=== PATIENT | female | born 1980 | race Caucasian/White ===

== ENCOUNTER 2021-05-08 08:55 | Outpatient (CLI) | payer BC, MEDICAID, SELFPAY ==
--- NOTE | ~2021-05-08 | MR_ITS ---
EXAMINATION: MR brain/brain stem wo/w con DATE: 05/08/2021 09:58 INDICATION: Neoplasm of unspecified behavior of brain. TECHNIQUE: Magnetic resonance imaging (MRI) of the brain and brainstem was performed without and with 14 mL MultiHance intravenous contrast. Sequences included sagittal and axial T1-weighted FSE, axial diffusion-weighted FS EPI, axial T2*-weighted GRE, axial T2-weighted FLAIR Propeller, and axial T2-we ighted Propeller. Postcontrast sequences included axial, sagittal, and coronal T1-weighted FSE. Appar ent diffusion coefficient (ADC) maps were created. COMPARISON: Brain MRI 11/19/2016, 08/19/03, and CT 06/18/2018 FINDINGS: There is a 9 x 7 mm lesion of increased T2-weighted signal intensity without contrast enhan cement in right hippocampus. There is no acute ischemic infarct or intracranial hemorrhage. The ventr icles are normal in size. The paranasal sinuses are clear. The mastoid air cells are normal. The orbi ts are normal. IMPRESSION: 1. 9 x 7 mm lesion of increased T2-weighted signal intensity without contrast enhancement in right hi ppocampus. The differential diagnosis includes low-grade neoplasm and old infarct. Reviewed, dictated and finalized at location A. B [employer] IMPRESSION: 1. 9 x 7 mm lesion of increased T2-weighted signal intensity without contrast e nhancement in right hippocampus. The differential diagnosis includes low-grade neoplasm and old infarct.
[2021-05-08 09:30] LABS: Estimated Glomerular Filt Rate > 60
== END 2021-05-08 08:56 | disposition home or self-care (01) ==
LOC: ANHIMG 09:00
PROVIDERS: PCP Family Medicine; Visit Provider Psychiatry & Neurology Neurology
DX: D49.6 Neoplasm of unspecified behavior of brain (principal)
CPT/HCPCS: 70553; A9577

== ENCOUNTER 2022-07-01 13:25 | Emergency (ER) | payer OTHER, SELFPAY ==
--- NOTE | 2022-07-01 13:29 | ED.FEMALEGU ---
HPI - Female Genitourinary General Chief complaint: Urogenital-Female Stated complaint: uti symptoms Time Seen by Provider: 07/01/22 13:28 Source: patient Mode of arrival: ambulatory Limitations: no limitations History of Present Illness HPI Narrative: Macy is a 41-year-old female patient presenting to the clinic today with complaints of urinary symptoms since Tuesday. She reports she is having burning with urination and pain over the bladder as well as some left sided flank plain. She has taken azo over the last 2 days which helped alleviate her symptoms. States history of urosepsis. 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 States she has not had a UTI in several years. She denies any fever or chills. Related Data Home Medications Medication Instructions Recorded Confirmed lacosamide 100 mg tablet (Vimpat) 100 mg PO Q12H 08/26/21 07/01/22 trazodone 100 mg tablet 100 mg PO QHS PRN Sleep 10/16/21 07/01/22 hydroxychloroquine 200 mg tablet 100 mg PO BID 06/10/22 07/01/22 venlafaxine 75 mg capsule,extended 75 mg PO DAILY 06/10/22 07/01/22 release 24 hr Allergies Allergy/AdvReac Type Severity Reaction Status Date / Time codeine Allergy Unknown Anaphylactic Verified 07/01/22 13:41 Shock Review of Systems Review of Systems: Pertinent positives per HPI. Patient denies any fever, chills, rash, headache, visual changes, dizziness, cough, runny nose, sore throat, shortness of breath, chest pain, palpitations, nausea, vomiting, diarrhea, constipation. PMFSH Past Medical History Medical History Abnormal Pap smear of cervix 1999 ASCUS - NO F/U NEEDED PER PT - cx bx wnl per pt sj Asthma Brain tumor Chlamydia 2007 Colitis Encounter for screening examination for sexually transmitted disease HSV-1 infection HSV-2 infection Screen for STD (sexually transmitted disease) Screening mammogram, encounter for Seizure SVT (supraventricular tachycardia) Vaginal discharge Surgical History Surgical History H/O: hysterectomy 01/08/21 RA TLH History of cholecystectomy History of colonoscopy with polypectomy 06-02-2018 Multiple polyps, repeat in 2021 History of colposcopy with cervical biopsy 1999 normal History of salpingectomy 07/03/20 Family History Family History Father Carcinoma of colon Mother Thyroid cancer Grandparent Diabetes mellitus maternal grandmother Social History Social History Smoking status: Light tobacco smoker Tobacco type: e-cigarettes/vaping Smoking end date: 03/28/16 Alcohol intake: never Substance use: current Substance use type: marijuana Other substance usage details: 3 x week Living arrangements: other Additional living arrangements comments: Occupation/Education: unemployed Gender identity (if verbalized by the patient): Female Sexual Orientation (if Verbalized by the Patient): Straight or Heterosexual Comments At the time of my signature, I reviewed and agree with the nursing past medical, surgical, social, and family history. There is no relevant family history pertinent to the patient complaint. Exam Narrative: General: Well-developed, well nourished, in no apparent distress. Head: Normocephalic, atraumatic. Cardio: Regular rate and rhythm, s1 and s2 normal, no murmur appreciated. Resp: Clear to auscultation bilaterally, no rhonchi, rales, wheezing or rubs. Abdomen: Soft, pliable, nondistended, bowel sounds present in all quadrants,tender to palpation over the lower abdomen and suprapubic bladder, no organomegly, + left CVAT tenderness. Course Course Emergency Course: Portions of this record may have been created with voice recognition software. Level of Care
[2022-07-01 13:34] VITALS: BP 125/71; PULSE 100; RESP 18; TEMP 36.7; O2SAT 98
== END 2022-07-01 13:50 | disposition home or self-care (01) ==
PROVIDERS: Emergency Provider Nurse Practitioner Family
DX: N30.01 Acute cystitis with hematuria (principal); F12.90 Cannabis use, unspecified, uncomplicated; J45.909 Unspecified asthma, uncomplicated
CPT/HCPCS: 81003; 87077; 87086; 87186; 99213; G0463

== ENCOUNTER 2022-08-03 15:17 | Emergency (ER) | payer OTHER, SELFPAY ==
[2022-08-03 15:29] VITALS: BP 126/77; PULSE 109; RESP 16; TEMP 36.4; O2SAT 100
--- NOTE | 2022-08-03 15:30 | ED.FEMALEGU ---
HPI - Female Genitourinary General Chief complaint: Urogenital-Female Stated complaint: uti symptoms Time Seen by Provider: 08/03/22 15:30 Source: patient Mode of arrival: ambulatory Limitations: no limitations History of Present Illness HPI Narrative: patient is a 41-year-old female that presents 4-5 days of urgency and frequency along with constant burning. Patient since sample to [facility] for STI a rule out yesterday and has been using Monistat gel for 2 nights along with Diflucan that started yesterday. Patient is also on doxycycline for the last 2 weeks for treatment of skin infection. Denies any flank pain fever or blood in urine. Patient states she has had decreased water intake and increase in caffeine intake this weekend due to busy schedule. Patient is also smoker. Has history of urethral reflux stopped medication in 2019 and has not seen a urologist since then. MD elicited complaint: dysuria Related Data Home Medications Medication Instructions Recorded Confirmed lacosamide 100 mg tablet (Vimpat) 100 mg PO Q12H 08/26/21 08/03/22 trazodone 100 mg tablet 100 mg PO QHS PRN Sleep 10/16/21 08/03/22 hydroxychloroquine 200 mg tablet 100 mg PO BID 06/10/22 08/03/22 venlafaxine 75 mg capsule,extended 75 mg PO DAILY 06/10/22 08/03/22 release 24 hr beclomethasone dipropionate 80 inhalation 08/03/22 mcg/actuation HFA breath activated aerosol (Qvar RediHaler) clindamycin phosphate 1 % lotion 1 applic topical DAILY 08/03/22 08/03/22 doxycycline monohydrate 100 mg 100 mg PO BID 08/03/22 08/03/22 capsule fremanezumab-vfrm 225 mg/1.5 mL 225 mg subcut WEEKLY 08/03/22 08/03/22 subcutaneous auto-injector (Ajovy) hydroxyzine HCl 25 mg tablet 25 mg PO TID PRN Anxiety 08/03/22 08/03/22 prazosin 1 mg capsule 1 mg PO HS 08/03/22 08/03/22 Allergies Allergy/AdvReac Type Severity Reaction Status Date / Time codeine Allergy Severe Anaphylactic Verified 08/03/22 15:27 Shock Review of Systems Review of Systems: All systems reviewed & are unremarkable except as noted in HPI and below Constitutional: Constitutional: Denies chills, Denies fever(s), Denies headache(s), Denies malaise and Denies weakness Eyes: Eyes: Denies change in vision, Denies eye discharge and Denies irritation ENT: Denies otalgia, Denies headache(s), Denies nasal congestion, Denies nasal discharge, Denies sinus pain and Denies sore throat Cardiovascular: Cardiovascular: Denies chest pain, Denies edema, Denies palpitations and Denies dyspnea Respiratory: Respiratory: Denies cough and Denies dyspnea Gastrointestinal: Gastrointestinal: Denies abdominal pain, Denies diarrhea, Denies nausea and Denies vomiting Genitourinary: Genitourinary: Denies hematuria, Reports post void dribbling, Reports nocturia, Reports genital pruritis, Reports dysuria, Denies flank pain and Reports urinary urgency Musculoskeletal: Musculoskeletal: Denies back pain and Denies numbness Integumentary/Breasts: Skin/Breast: Denies pruritus and Denies rash Neurologic: Denies headache(s), Denies numbness and Denies weakness Psychiatric: Psychiatric: Reports no additional psychiatric complaints Endocrine: Endocrine: Denies palpitations PMFSH Past Medical History Medical History Abnormal Pap smear of cervix 1999 ASCUS - NO F/U NEEDED PER PT - cx bx wnl per pt sj Asthma Brain tumor Chlamydia 2007 Colitis Encounter for screening examination for sexually transmitted disease HSV-1 infection HSV-2 infection Screen for STD (sexually transmitted disease) Screening mammogram, encounter for Seizure SVT (supraventricular tachycardia) Vaginal discharge Surgical History Surgical History H/O: hysterectomy 01/08/21 RA TL History of cholecystectomy History of colonoscopy with polypectomy 06-02-2018 Multiple polyps, repeat in 2021 History of colposcopy w
[2022-08-03 15:32] VITALS: BP 126/77; PULSE 109; RESP 16; TEMP 36.4; O2SAT 100
== END 2022-08-03 15:59 | disposition home or self-care (01) ==
PROVIDERS: Emergency Provider Nurse Practitioner Family; PCP Nurse Practitioner Family
DX: R39.15 Urgency of urination (principal); R35.0 Frequency of micturition; J45.909 Unspecified asthma, uncomplicated
CPT/HCPCS: 81003; 99212; G0463

== ENCOUNTER 2024-02-20 12:39 | Emergency (ER) | payer OTHER, SELFPAY ==
[2024-02-20 12:49] VITALS: BP 95/58; PULSE 106; RESP 16; TEMP 36.3; O2SAT 99
--- NOTE | 2024-02-20 12:55 | ED.FEMALEGU ---
HPI - Female Genitourinary General Chief complaint: Urogenital-Female Stated complaint: possible UTI Source: patient and RN notes reviewed Mode of arrival: ambulatory Limitations: no limitations History of Present Illness HPI Narrative: 43-year-old female presented for complaint of mild burning with urination. Onset yesterday. She also endorses some nausea and suprapubic pressure. Pt completed 5 days of macrobid 3 days ago, as prescribed by her flat examiner for uti. States she felt better while taking it. Pt states she thinks she is dehydated. Denies hematuria, nausea, vomiting, abdominal pain, flank pain, constipation, diarrhea, fevers or chills. Related Data Home Medications ?Medication ?Instructions ?Recorded ?Confirmed ?Last Taken ?Type trazodone 100 mg tablet 100 mg PO QHS PRN Sleep 10/16/21 01/23/24 Unknown History hydroxychloroquine 200 mg tablet 100 mg PO BID 06/10/22 01/23/24 Unknown History beclomethasone dipropionate 80 inhalation 08/03/22 01/23/24 Unknown History mcg/actuation HFA breath activated aerosol (Qvar RediHaler) prazosin 1 mg capsule 1 mg PO HS 08/03/22 01/23/24 Unknown History flluyxwjml-nmatblslxhead-eymiwnbz 1 cap PO Q6H PRN 12/14/22 01/23/24 Unknown History 50 mg-325 mg-40 mg capsule prochlorperazine maleate 5 mg 5 mg PO Q8H PRN 12/14/22 01/23/24 Unknown History tablet atomoxetine 100 mg capsule 100 mg PO DAILY 01/23/24 01/23/24 Unknown History (Strattera) bupropion HCl 300 mg 24 hr tablet, 300 mg PO QAM 01/23/24 01/23/24 Unknown History extended release (Wellbutrin XL) buspirone 10 mg tablet 10 mg PO TID 01/23/24 01/23/24 Unknown History Allergies Allergy/AdvReac Type Severity Reaction Status Date / Time codeine Allergy Severe Anaphylactic Verified 02/20/24 12:51 Shock Review of Systems Review of Systems: CONSTITUTIONAL: Denies body aches, fever, chills, or sweats. CARDIOVASCULAR: Denies chest pain, palpitations, or edema. RESPIRATORY: Denies cough or dyspnea. GASTROINTESTINAL: Denies abdominal pain, nausea, vomiting, or diarrhea. GENITOURINARY: Reports dysuria, denies frequency, urgency, hematuria, flank pain SKIN: Denies rash, itching, or wounds. MUSCULOSKELETAL: Denies back pain or myalgia. [facility] Past Medical History Medical History Suburethral sling present Connective tissue disease Screen for STD (sexually transmitted disease) Vaginal discharge HSV-2 infection HSV-1 infection Screening mammogram, encounter for Encounter for screening examination for sexually transmitted disease Brain tumor Seizure Asthma Colitis SVT (supraventricular tachycardia) Chlamydia 2006 Abnormal Pap smear of cervix 1999 ASCUS - NO F/U NEEDED PER PT - cx bx wnl per pt sj Surgical History Surgical History History of cholecystectomy History of colposcopy with cervical biopsy 1999 normal History of colonoscopy with polypectomy 06-02-2018 Multiple polyps, repeat in 2021 History of salpingectomy 07/03/20 H/O: hysterectomy 01/08/21 [facility] Family History Family History Father Carcinoma of colon Mother Thyroid cancer Grandparent Diabetes mellitus maternal grandmother Social History Social History Smoking status: Light tobacco smoker Tobacco type: e-cigarettes/vaping Smoking end date: 03/28/16 Alcohol intake: never Substance use: current Substance use type: marijuana Other substance usage details: 3 x week Lack of Transportation: No Lack of Food: Never True Current Housing: I Have Housing Concerned About Future Housing: No Difficulty Paying Gas/Electric Bills: No Difficulty Paying for Meds: No Currently Unemployed: No Education: Trade/Vocational Certificate Difficulty w/ Childcare or Family Care: No Living arrangements: other Additional living arrangements comments: Occupation/Education: unemployed Additional occupation/education comments: half-way disability Gender identity (if verbalized by the patient): Female Sexual Orientation (if Verbalized by the Patient): Straight or Heterosexual Comments At time of signature, I have reviewed and agree with nursing past medical, surgical, social and family history unless otherwise noted. Please see nursing chart for further information. There is no relevant family history pertinent to the presenting complaint Exam Narrative: GENERAL: Well-appearing ENT: Mucous membranes pink and moist. NECK: Normal AROM. Supple. CHEST: No respiratory distress. Clear to auscultation. HEART: Regular rate and rhythm. ABDOMEN: Soft, nontender, nondistended, normal active bowel sounds. No CVA tenderness SKIN: Warm, dry, no rash. NEURO: No focal deficits. Alert and oriented x3. Gait steady. PSYCH: Normal affect. Course Course Emergency Course: Patient is aware of diagnosis, understands and agrees to treatment plan. Anticipatory guidance given. Patient agrees to follow-up as directed and is aware of reasons to seek care at the emergency department. Portions of this record may have been created with voice recognition software Level of Care: Express Care Visit Vital Signs Vital signs: Vital Signs Temperature 97.3 F L 02/20/24 12:49 Pulse Rate 106 H 02/20/24 12:49 Respiratory Rate 16 02/20/24 12:49 Blood Pressure 95/58 L 02/20/24 12:49 Pulse Oximetry 99 02/20/24 12:49 Oxygen Delivery Room Air 02/20/24 12:49 Temperature 97.3 F L 02/20/24 12:49 Pulse Rate 106 H 02/20/24 12:49 Respiratory Rate 16 02/20/24 12:49 Blood Pressure 95/58 L 02/20/24 12:49 Pulse Oximetry 99 02/20/24 12:49 Oxygen Delivery Room Air 02/20/24 12:49 Reviewed MDM - Female Genitourinary MDM Narrative Medical decision making narrative: Discussed physical exam findings and urine dip. Since she just completed the macrobid, she will await the culture result for abx if needed. She would like fluconazole at this time. Advised supportive measures and signs/symptoms to go to the ER. Pt is appropriate for outpt treatment and f/u. Differential Diagnosis Differential diagnosis: Likely urinary tract infection, bacterial vaginosis, vaginitis and cystitis Discharge Plan Discharge Clinical Impression: Dysuria Patient Disposition: Home, Self-Care Condition: Stable Instructions: Antibiotic Form, Urinary Tract Infection in Women (ED) Additional Instructions: Your urine will be sent of for a culture to determine if bacteria is causing your symptoms. If the culture shows a UTI, you will be notified and an antibiotic will be called in for you. you will need to follow up with your PCP for further evaluation and treatment if symptoms persist, call today to schedule follow-up appointment. Go to the ER for any worsening symptoms or concerns. Patient Language: Estonian Prescriptions: New fluconazole 150 mg tablet 150 mg PO DAILY Qty: 2 0RF No Action prazosin 1 mg capsule 1 mg PO HS Qvar RediHaler 80 mcg/actuation HFA aerosol breath activated INHALATION bupropion HCl [Wellbutrin XL] 300 mg tablet extended release 24 hr 300 mg PO QAM buspirone 10 mg tablet 10 mg PO TID atomoxetine [Strattera] 100 mg capsule 100 mg PO DAILY trazodone 100 mg tablet 100 mg PO QHS PRN (Reason: Sleep) qenpqbdjac-tqibjuurfwznr-hpci 50-325-40 mg capsule 1 cap PO Q6H PRN prochlorperazine maleate 5 mg tablet 5 mg PO Q8H PRN hydroxychloroquine 200 mg tablet 100 mg PO BID montelukast 10 mg tablet See Rx Instructions .ROUTE .COMPLEX Qty: 90 1RF Dose Instruction: TAKE 1 TABLET BY MOUTH DAILY Rx Instructions: TAKE 1 TABLET BY MOUTH DAILY fluticasone propionate 50 mcg/actuation spray,suspension See Rx Instructions .ROUTE .COMPLEX Qty: 32 0RF Dose Instruction: SHAKE LIQUID AND USE 2 SPRAYS IN EACH NOSTRIL DAILY Rx Instructions: SHAKE LIQUID AND USE 2 SPRAYS IN EACH NOSTRIL DAILY albuterol sulfate 90 mcg/actuation HFA aerosol inhaler See Rx Instructions .ROUTE .COMPLEX Qty: 18 0RF Dose Instruction: INHALE 1 PUFF BY MOUTH EVERY 4 HOURS NEEDED FOR BRONCHOSPASM Rx Instructions: INHALE 1 PUFF BY MOUTH EVERY 4 HOURS NEEDED FOR BRONCHOSPASM Follow-up/Referrals: Kimberly,Eve Mayes, DERMATOLOGY PROCEDURAL PHYSICIAN [Primary Care Provider] -
[2024-02-20 13:03] LABS: EDUAAPPEAR Clear; EDUABILI 1+ (Negative); EDUABLOOD Negative (Negative); EDUACOLOR1 Yellow; EDUAGLUCOSE Negative (Negative); EDUAKETONE Negative (Negative); EDUALEUKO Negative (Negative); EDUANITRATE Negative (Negative); EDUAPH 5.5; EDUAPROTEIN 1+ (Negative); EDUAUROBILI 0.2
== END 2024-02-20 13:05 | disposition home or self-care (01) ==
PROVIDERS: Emergency Provider Nurse Practitioner Family; PCP Nurse Practitioner Family
DX: R30.0 Dysuria (principal); F17.290 Nicotine dependence, other tobacco product, uncomplicated
CPT/HCPCS: 81003; 87086; 99213; G0463

== ENCOUNTER 2024-02-24 17:32 | Emergency (ER) | payer SELFPAY ==
[2024-02-24 17:49] VITALS: BP 106/69; PULSE 111; RESP 18; TEMP 36.4; O2SAT 100
--- NOTE | 2024-02-24 18:38 | ED_ITS ---
HPI - URI/Sore Throat General Chief Complaint: Upper Respiratory Infection Stated Complaint: Flu like Symptoms Time Seen by Provider: 02/24/24 18:38 Source: patient, RN notes reviewed and old records reviewed Mode of arrival: ambulatory Limitations: no limitations History of Present Illness HPI Narrative: 43-year-old female presents to the [facility] with concerns of 4 days of nasal congestion, headache, scratchy throat, cough, sneezing. Reports also spilling feverish. Has taken ibuprofen and Sudafed. Patient is a vapor Reports exposure to strep throat Related Data Home Medications ?Medication ?Instructions ?Recorded ?Confirmed ?Last Taken ?Type trazodone 100 mg tablet 100 mg PO QHS PRN Sleep 10/16/21 01/23/24 Unknown History hydroxychloroquine 200 mg tablet 100 mg PO BID 06/10/22 01/23/24 Unknown History beclomethasone dipropionate 80 inhalation 08/03/22 01/23/24 Unknown History mcg/actuation HFA breath activated aerosol (Qvar RediHaler) prazosin 1 mg capsule 1 mg PO HS 08/03/22 01/23/24 Unknown History pvzvnzdgrv-spdhlshmkowoj-tcdwemjv 1 cap PO Q6H PRN 12/14/22 01/23/24 Unknown History 50 mg-325 mg-40 mg capsule prochlorperazine maleate 5 mg 5 mg PO Q8H PRN 12/14/22 01/23/24 Unknown History tablet atomoxetine 100 mg capsule 100 mg PO DAILY 01/23/24 01/23/24 Unknown History (Strattera) bupropion HCl 300 mg 24 hr tablet, 300 mg PO QAM 01/23/24 01/23/24 Unknown History extended release (Wellbutrin XL) buspirone 10 mg tablet 10 mg PO TID 01/23/24 01/23/24 Unknown History Allergies Allergy/AdvReac Type Severity Reaction Status Date / Time codeine Allergy Severe Anaphylactic Verified 02/24/24 18:30 Shock Review of Systems Review of Systems: All systems reviewed & are unremarkable except as noted in HPI and below Constitutional: Constitutional: Reports no additional constitutional complaints ENT: Reports as per HPI Cardiovascular: Cardiovascular: Reports no additional cardiovascular complaints, Denies chest pain and Denies dyspnea Respiratory: Respiratory: Reports as per HPI, Reports chest congestion, Denies cough and Denies dyspnea Musculoskeletal: Musculoskeletal: Reports no additional musculoskeletal complaints Integumentary/Breasts: Skin/Breast: Reports system reviewed and no additional complaints, except as docu PMFSH Past Medical History Medical History Suburethral sling present Connective tissue disease Screen for STD (sexually transmitted disease) Vaginal discharge HSV-2 infection HSV-1 infection Screening mammogram, encounter for Encounter for screening examination for sexually transmitted disease Brain tumor Seizure Asthma Colitis SVT (supraventricular tachycardia) Chlamydia 2006 Abnormal Pap smear of cervix 1999 ASCUS - NO F/U NEEDED PER PT - cx bx wnl per pt sj Surgical History Surgical History History of cholecystectomy History of colposcopy with cervical biopsy 1999 normal History of colonoscopy with polypectomy 06-02-2018 Multiple polyps, repeat in 2021 History of salpingectomy 07/03/20 H/O: hysterectomy 01/08/21 RA TL Family History Family History Father Carcinoma of colon Mother Thyroid cancer Grandparent Diabetes mellitus maternal grandmother Social History Social History Smoking status: Light tobacco smoker Tobacco type: e-cigarettes/vaping Smoking end date: 03/28/16 Alcohol intake: never Substance use: current Substance use type: marijuana Other substance usage details: 3 x week Lack of Transportation: No Lack of Food: Never True Current Housing: I Have Housing Concerned About Future Housing: No Difficulty Paying Gas/Electric Bills: No Difficulty Paying for Meds: No Currently Unemployed: No Education: Trade/Vocational Certificate Difficulty w/ Childcare or Family Care: No Living arrangements: other Additional living arrangements comments: Occupation/Education: unemployed Additional occupation/education comments: [employer] disability Gender identity (if verbalized by the patient): Female Sexual Orientation (if Verbalized by the Patient): Straight or Heterosexual Comments At the time of my signature, I reviewed and agree with the nursing past medical, surgical, social, and family history. There is no relevant family history pertinent to the patient complaint. Exam Const: General: cooperative, healthy appearing, comfortable, no acute distress, well developed, alert and well nourished Nutritional Appearance: well nourished Orientation/consciousness: patient oriented x3 Limitations: no limitations HENMT: Head: normal to inspection Ears: hearing grossly normal bilaterally, external ears normal, EAC's normal, mastoids normal, no periauricular adenopathy and TM abnormal with fluid behind the TM bilateral; not bulging and not erythematous Face/Nose/Sinus: normal facial exam and face symmetric Face and sinus: normal facial exam and face symmetric Throat: posterior oropharynx normal, uvula midline, postnasal drainage and no uvular edema Eyes: General: appearance normal, both eyes and all related structures Neck: Neck: normal visual inspection, full ROM, no lymphadenopathy and no meningeal signs Chest: Chest palpation & inspection: normal inspection of the chest Resp: Effort & Inspection: normal respiratory effort and able to speak in complete sentences Auscultation: clear to auscultation bilaterally, no crackles, no rales, no rhonchi and no wheezes Cardio: Rate: regular rate Skin: General skin exam: normal color and no rashes or lesions noted Neuro: General: patient oriented x3, gait normal, moves all extremities and no meningeal signs Cognition (Neuro): normal cognition Speech: normal speech Gait exam (Neuro): Normal gait present Extrem: General: normal to inspection, full ROM, capillary refill normal and normal gait Psych: Appearance: grossly normal and well kempt Mental Status: mental status grossly normal Speech and movement: Normal speech and movement present and Clear speech present Affect: normal affect Attitude: cooperative Course Course Level of Care: Express Care Visit Vital Signs Vital signs: Vital Signs Temperature 97.5 F L 02/24/24 17:49 Pulse Rate 111 H 02/24/24 17:49 Respiratory Rate 18 02/24/24 17:49 Blood Pressure 106/69 02/24/24 17:49 Pulse Oximetry 100 02/24/24 17:49 Oxygen Delivery Room Air 02/24/24 17:49 Temperature 97.5 F L 02/24/24 17:49 Pulse Rate 111 H 02/24/24 17:49 Respiratory Rate 18 02/24/24 17:49 Blood Pressure 106/69 02/24/24 17:49 Pulse Oximetry 100 02/24/24 17:49 Oxygen Delivery Room Air 02/24/24 17:49 Reviewed MDM - URI/Sore Throat MDM Narrative Medical decision making narrative: Patient sitting exam vitals stable. Patient in acute distress. Patient with 4 day history of URI symptoms, sore throat Strep test negative, patient denies concerns for flu were COVID. Patient appropriate for outpatient treatment and follow-up Discharge instructions reviewed with patient, as well as provided in writing per nursing staff. The instructions also include specific and strict return/GO TO THE ER as well as f/u information. All questions have been answered, and the patient deny any further questions with discharge and discharge plan. Some parts of this dictation were generated by voice recognition software and may contain typographical and/or grammatical inaccuracies. Differential Diagnosis Differential diagnosis: Likely upper respiratory infection, otitis media, sinusitis, viral infection, bronchitis, influenza and pharyngitis Lab Data Labs: Lab Results 02/24/24 Range/Units 18:43 POC Grp A Strep Screen Negative (Negative) Reviewed Critical Care Time Critical Care Time Critical Care Time: No Discharge Plan Discharge Clinical Impression: Upper respiratory infection Qualifiers: URI type: unspecified viral URI Qualified Code(s): J06.9 - Acute upper respiratory infection, unspecified Patient Disposition: Home, Self-Care Condition: Stable Instructions: Antibiotic Form, Upper Respiratory Infection (ED) Additional Instructions: Your rapid strep swab was negative today at [facility]. A throat culture will be sent to the laboratory for further testing. If the test is positive, you will receive a phone call within 48 hours and an appropriate antibiotic will be ini tiated at that time. Your symptoms are likely due to a viral illness, which is not treated with antibiotics. Typically viral infections last 7-10 days, can linger for couple of weeks. It is very important to treat your symptoms. Drink plenty of water, Gatorade, Pedialyte, ice pops or Jell-O. -Alternate Tylenol and Motrin per package directions for fever or pain. You can alternate every 4 hours -Antihistamine medication such as Benadryl at night and Zyrtec/Claritin/Talia during the day can help improve symptoms. -doing daily nasal irrigations can help relieve pressure your sinuses. Things like a Neti pot -Use Flonase twice a day for 5 days then daily to help reduce the inflammation and dry up your sinuses. -You can also use Mucinex. Be sure to drink plenty of water with this me dication at least 8 ounces with every dose and it is important to drink 8 to 10 glasses of water per day. Water is a natural decongestant -Eat and drink things that are easy to swallow, like tea or soup, or popsicles. -Oral rinses such as: Salt water gargles and/or may use topical anesthetic (eg. Chloraseptic spray) or lozenges to relieve dryness or throat pain). -Frequent hand washing or hand torch heater is one of the best ways to prevent spread of infection. -Using a vaporizer or humidifier at night will also help thin secretions and help with coughing up phlegm. -Follow up with primary care provider in 7-10 days if condition is not improving - For new or worsening symptoms go directly to the nearest ER Patient Language: [place] Prescriptions: New methylprednisolone [Medrol (Partha)] 4 mg tablets,dose pack See Rx Instructions PO .COMPLEX Qty: 21 0RF Rx Instructions: orally per package directions No Action prazosin 1 mg capsule 1 mg PO HS Qvar RediHaler 80 mcg/actuation HFA aerosol breath activated INHALATION fluconazole 150 mg tablet 150 mg PO DAILY Qty: 2 0RF bupropion HCl [Wellbutrin XL] 300 mg tablet extended release 24 hr 300 mg PO QAM buspirone 10 mg tablet 10 mg PO TID atomoxetine [Strattera] 100 mg capsule 100 mg PO DAILY trazodone 100 mg tablet 100 mg PO QHS PRN (Reason: Sleep) ksmocdotie-bzaemurusydwy-pvoo 50-325-40 mg capsule 1 cap PO Q6H PRN prochlorperazine maleate 5 mg tablet 5 mg PO Q8H PRN hydroxychloroquine 200 mg tablet 100 mg PO BID montelukast 10 mg tablet See Rx Instructions .ROUTE .COMPLEX Qty: 90 1RF Dose Instruction: TAKE 1 TABLET BY MOUTH DAILY Rx Instructions: TAKE 1 TABLET BY MOUTH DAILY fluticasone propionate 50 mcg/actuation spray,suspension See Rx Instructions .ROUTE .COMPLEX Qty: 32 0RF Dose Instruction: SHAKE LIQUID AND USE 2 SPRAYS IN EACH NOSTRIL DAILY Rx Instructions: SHAKE LIQUID AND USE 2 SPRAYS IN EACH NOSTRIL DAILY albuterol sulfate 90 mcg/actuation HFA aerosol inhaler See Rx Instructions .ROUTE .COMPLEX Qty: 18 0RF Dose Instruction: INHALE 1 PUFF BY MOUTH EVERY 4 HOURS NEEDED FOR BRONCHOSPASM Rx Instructions: INHALE 1 PUFF BY MOUTH EVERY 4 HOURS NEEDED FOR BRONCHOSPASM Follow-up/Referrals: UNKNOWN,DOCTOR [Primary Care Provider] - Stand Alone Forms: Work/School Release IP Time of Disposition: 18:57
[2024-02-24 18:45] LABS: EDSTREPNEGPOS1 Negative (Negative)
== END 2024-02-24 19:02 | disposition home or self-care (01) ==
PROVIDERS: Emergency Provider Nurse Practitioner
DX: J06.9 Acute upper respiratory infection, unspecified (principal); F17.290 Nicotine dependence, other tobacco product, uncomplicated
CPT/HCPCS: 87081; 87880; 99213; G0463

== ENCOUNTER 2024-10-15 12:32 | Emergency (ER) | payer OTHER, SELFPAY ==
[2024-10-15 12:40] VITALS: BP 115/55; PULSE 95; RESP 18; TEMP 36.5; O2SAT 100
--- OUTSIDE RECORDS SUMMARY | 2024-10-15 13:16 | XMS_ITS | Clinical Summary ---
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 Name Role Phone Eve Harris APRN, INSULATION PROFESSIONAL Primary Care Provide r Allergies Active Allergy Reactions Criticality Noted Date Comments Codeine Anaphylaxis 12/07/2023 Medications methylPREDNISol one (MEDROL DOSPACK) 4 MG Tablet Therapy Pack See product package insert for dosing schedule 21 Tablet 12/08/2023 Active Social History Tobacco Use Types Packs/Day Years Used Date Smoking Tobacco: Never Smokeless Tobacco: Never Tobacco Cessation:Counseling Given: Not Answered Alcohol Use Standard Drinks/Week Comments Never 0 (1 standard drink = 0.6 oz pur e alcohol) Comments No Sex and Gender Information Value Date Recorded Sex Assigned at Female 12/07/2023 9:46 PM CDT Legal Sex Female 9:26 PM CDT Gender Identity Female 12/07/2023 9:46 PM CDT Sexual Orientation Not on file Last Filed Vital Signs Vital Sign Reading Time Taken Comments Blood Pressure 104/63 12/08/2023 1:12 AM CDT Pulse 108 12/08/2023 1:12 AM CDT Temperature 37.1 C (98.8 F) 12/07/2023 9:33 PM CDT Respiratory Rate 18 12/08/2023 1:12 AM CDT Oxygen Saturation 98% 12/08/2023 1:12 AM CDT Inhaled Oxygen Concentration - - Weight 77.6 kg (171 lb 1.2 oz) 12/07/2023 9:33 P M CDT Height 175.3 cm (5' 9) 12/07/2023 9:33 PM CDT Body Mass Index 25.26 12/07/2023 9:33 PM CDT Plan of Treatment Health Maintenance Due Date Last Done Comments Human Papillomavirus (HPV) Immunization (1 - 3-dose SCDM series) 2008 Mammogram 05/08/2023 05/07/2022, 05/07/2022 SARS-COV-2 Immunization ( season) 2023 03/07/2020, 02/15/2020 Influenza Immunization (#1) 10/29/202411/29, 11/20/2013 Respiratory Syncytial Virus (RSV) Immunization (Adult) (1 - 1-dose 75+ series) 2056 Hepatitis B Immunization Completed 014, 09/17/2011, 07/12/2011 TdaP Immunization Completed 08/21/2016, 07/12/2011 Hepatitis C Virus (HCV) Screening Completed 11/25/2021 Discussion re Starting/Frequency of Mammograms Completed 05/07/2022 Meningococcal Immunization (ACWY) Aged Out No longer eligible b ased on patient's age to complete this topic Pneumococcal Immunization Combined Aged Out No longer eligible b ased on patient's age to complete this topic Rotavirus Immunization Aged Out No lo nger eligible based on patient's age to complete this topic Insurance [place]ID [place] Care Teams Photovoltaic Power Systems Engineer Relationship Specialty Start Date End Date Eve Harris, GAME BREEDING FARM MANAGER, INSULATION PROFESSIONAL PCP - General Advanced Practice Nurse 12/07/23
--- OUTSIDE RECORDS SUMMARY | 2024-10-15 13:16 | XMS_ITS | Clinical Summary ---
Author Organization [facility] Address [address] [place] [address] Care Team Providers Care Fur Dresser Name Role Phone Nancy Alexander MD Unavailable [phone] Caryl Lujan OT Unavailable Unavailab Eve Suero ENERGY ASSISTANT Primary Care Provide r Allergies Active Allergy Reactions Criticality Noted Date Comments Codeine Anaphylaxis,Other (S ee comments),Swelling High 06/18/2013 Swelling Oral/tongue numbness; lasting weeks. Other reaction(s): numbness Medications albuterol HFA (PROVENTIL HFA,VENTOLIN HFA,PROAIR HFA) 90 mcg/actuation inhaler Inhale 2 puffs every 6 (six) hours as needed 05/28/19 22 Active beclomethasone dipropionate (Qvar RediHaler) 80 mcg/actuation inhaler Inhale 80 mcg 2 (two) times a day 04/09/19 22 Active hydrocortisone valerate (WEST-ANGELO) 0.2 % ointment hydrocortisone valerate 0.2 % topical ointment DISHA TOPICALLY ON BOTH HANDS BID PRF ECZEMA Active montelukast (SINGULAIR) 10 mg tablet Take 1 tablet (10 mg total) by mouth daily 03/23/19 19 Active prochlorperazine (COMPAZINE) 5 mg tablet 06/10/19 22 Active fluticasone propionate (FLONASE) 50 mcg/actuation nasal spray 2 sprays daily 11/04/19 22 Active triamcinolone (KENALOG) 0.1 % cream as needed 05/01/19 23 Active onabotulinumtoxin A (Botox) 100 unit recon soln Inject 155 Units into the muscle as instructed every 3 (three) months 01/25/20 23 Active ergocalciferol (VITAMIN D) 50,000 unit capsule 07/16/19 24 Active ondansetron ODT (ZOFRAN-ODT) 4 mg disintegrating tablet Take 1 tablet (4 mg total) by mouth every 8 (eight) hours as needed 01/12/20 24 Active Strattera 100 mg capsule TAKE 1 CAPSULE BY MOUTH DAILY IN THE MORNING 01/10/20 24 Active buPROPion XL (WELLBUTRIN XL) 300 mg 24 hr tablet Take 1 tablet (300 mg total) by mouth every morning 01/10/20 24 Active prazosin (MINIPRESS) 2 mg capsule TAKE 1 CAPSULE BY MOUTH DAILY AT BEDTIME 01/10/20 24 Active busPIRone (BUSPAR) 10 mg tablet Take 1 tablet (10 mg total) by mouth 3 (three) times a day 06/06/19 25 Active butalbital-acetami nophen-caffeine (ESGIC) 50-325-40 mg per tablet TAKE 1 TABLET BY MOUTH THREE TIMES DAILY NEEDED FOR MIGRAINE 03/27/19 25 Active Aimovig Autoinjector 70 mg/mL auto-injector subcutaneous injection ADMINISTER 1 ML UNDER THE SKIN EVERY 30 DAYS 06/20/19 25 Active nicotine (NICODERM CQ) [address] 14 mg on the skin daily 03/15/19 25 Active QUEtiapine (SEROquel) 50 mg tablet TAKE 1 TABLET BY MOUTH DAILY AT BEDTIME NEEDED Active hydroxychloroquine (PLAQUENIL) 200 mg tablet Take 1 tablet (200 mg total) by mouth daily Alternating with 2 tablets (400 mg) every other day. 135 tablet 07/04/19 25 Active meloxicam (MOBIC) 15 mg tablet TAKE 1 TABLET(15 MG) BY MOUTH DAILY NEEDED FOR PAIN 30 tablet 07/31/19 25 Active Active Problems Problem Noted Date Diagnosed Date Bipolar II disorder 04/15/2022 Moderate recurrent major depression 04/15/2022 Irregular periods 04/15/2022 Chronic migraine w/o aura, not intractable, w st at migr 03/29/2022 Connective tissue disease 03/08/2022 Assessment & Plan (07/12/2024 2:43 PM CDT): Follows with rheumatology. Assessment & Plan (07/21/2023 2:50 PM CDT): Follows with rheumatology. Assessment & Plan (03/08/2022 3:35 PM INTERNATIONAL BANKER): Follows with rheumatology. No contraindications to HCQ use at this time. Return for HVF 10-2 optical technician only. If no concerns, okay to return annually for DFE until 5 years of cumulative use, then restart OCT 5 line macula and HVF 10-2 annually. High risk medications (not anticoagulants) long- term use 03/08/2022 Assessment & Plan (07/12/2024 2:43 PM CDT): No evidence of plaquenil toxicity on HVF 10-2, DFE, and OCT 5 line macula today. Return for annual screening, letter to rheumatology. Assessment & Plan (07/21/2023 2:49 PM CDT): No evidence of plaquenil toxicity on HVF 10-2, DFE, and OCT 5 line macula today. Return for annual screening, letter to rheumatology. Anxiety 10/15/2021 Chronic fatigue syndrome 10/15/2021 Gestational diabetes mellitus 10/15/2021 Hair loss 10/15/2021 Seizure 07/07/2021 Anemia 06/01/2021 Decreased movement during 2021 Depression 06/01/2021 Dysuria 06/01/2021 problem 06/01/2021 Menorrhagia 06/01/2021 Microscopic hematuria 06/01/2021 Nightmares 06/01/2021 Recurrent urinary tract infection 06/01/2021 Seasonal allergic rhinitis due to pollen 022 Upper respiratory infection 06/01/2021 Urinary tract infectious disease 06/01/2021 Vaginitis 06/01/2021 Brain mass 05/18/2021 Elevated antinuclear antibody (MELISSA) level 2021 Abnormal electrocardiogram 06/14/2018 Arm pain, left 06/14/2018 Chest pain 06/14/2018 Pain in unspecified limb 06/14/2018 Polyp of colon 06/06/2018 Paroxysmal ventricular tachycardia 03/03/2015 Palpitations 06/18/2013 Asthma complicating , antepartum 2012 SVT (supraventricular tachycardia) 01/23/2013 Choroid plexus cyst 12/20/2012 Supervision of other high ri sk pregnancies, unspecified trimester 10/27/2012 Overview (10/15/2021): Maternal arrhythmia complicating 10/24 Overview (10/15/2021): SVT GERD (gastroesophageal reflux disease) 0 Immunizations Immunization Administration Dates Next Due Hep B Vaccine 11/08/2013,09/17/2011,07/12/2011 Influenza, Quadrivalent, Spl it, Preservative Free, Intramuscular 12/24/2014,11/20/2013 MMR 11/22/2013 MMRV 11/22/2013 Tdap 08/21/2016,07/12/2011 Varicella 09/17/2011 Surgical History Surgery Date Site/Laterality Comments CHOLECYSTECTOMY TUBAL LIGATION PARTIAL HYSTERECTOMY LUMBAR PUNCTURE WO INJECTION, DIAGNOSTIC 05/19/2021 N/A Medical History Medical History Date Comments Asthma Depression Migraines Fatigue Sciatica Sinusitis Stroke (HCC) SVT (supraventricular tachycardia) Anxiety Anemia PTSD (post-traumatic stress disorder) Brain mass Family History Medical History Relation Name Comments Hypertension Brother Cancer Father Hypertension Father Cancer Mother Cancer Paternal Grandmother Relation Name Status Comments Brother Father Mother Paternal Grandmother Social History Tobacco Use Types Packs/Day Years Used Date Smoking Tobacco: Every Day Cigarettes 0.5 15 Tobacco Cessation:Ready to Q uit: Not Asked; Counseling Given: Not Answered AUDIT-C Answer Date Recorded Q1: How often do you have a drink containing alcohol? Never 04/15/2022 Q2: How many drinks containi ng alcohol do you have on a typical day when you are drinking? Patient does not drink Q3: How often do you have si x or more drinks on one occasion? 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 Not on file Not on file Not on file Obstetrics History Para Term AB IAB SAB Ectopic Multiple Livin g Live Births 6 4 Date Outcome GA Total Labor Labor/2nd/3rd Weight Sex Type Anes PTL Priscilla A1 A5 Name Clin Para Para Para Para Comments 2 miscarriages- two first tr imester miscarriages Last Filed Vital Signs Vital Sign Reading Time Taken Comments Blood Pressure 96/66 07/03/2024 11:49 AM CDT Pulse 89 07/03/2024 11:49 AM CDT Temperature 36.6 C (97.8 F) 07/03/2024 11:49 AM CDT Respiratory Rate 18 08/03/2021 7:47 AM CDT Oxygen Saturation 100% 01/06/2022 10:06 AM INTERNATIONAL BANKER Inhaled Oxygen Concentration - - Weight 66 kg (145 lb 9.6 oz) 07/03/2024 11:49 AM CDT Height 175.3 cm (5' 9) 07/03/2024 11:49 AM CDT Body Mass Index 21.5 07/03/2024 11:49 AM CDT Plan of Treatment Health Maintenance Due Date Last Done Comments Albumin Creatinine Ratio, Urine 1981 Cervical Cancer Screening 1981 Depression Screening 1981 Foot Exam 1981 Regular Well Visit/Exam 18-64 09/06/1999 Pneumococcal vaccine <65 (1 of 2 - PCV) 2000 HPV Vaccines (1 - 3-dose SCD M series) 2008 Zoster Vaccine (1 of 2) 01/17/2014 Hemoglobin A1C 10/04/2019 04/05/2019 Covid-19 Vaccine (3 - Pfizer risk series) 04/04/2020 03/07/2020, 02/15/2020 Influenza Vaccine (#1) 2024 5, 12/24/2014, 11/20/2013 Lipid Panel 01/16/2025 01/17/2024, 03/02, 04/30/2022, Additional history exists Breast Cancer Screening-Mammogram 03/29/2025 03/29/2024, 03/29/2024, 05/07/2022, Additional history exists eGFR 07/03/2025 07/03/2024, 01/28, 07/19/2023, Additional history exists Dilated Eye Exam 07/12/2025 07/12/2024, , 03/08/2022 DTaP/Tdap/Td Vaccine (3 - Td or Tdap) 08/21/2026 08/21/2016, 07/12/2011 Hepatitis B Screening Completed 11/08/2013 , 09/17/2011, 07/12/2011 Varicella Vaccines Completed 11/22/2013, 09/17/2011 Hepatitis C Screening Completed 11/25/2021 Procedures Procedure Name Priority Date/Time Associated Diagnosis Comments COMPREHENSIVE METABOLIC PANEL Routine 07/03/2024 12:48 PM CDT Undifferentiated connective tissue disease HEPATITIS PANEL, ACUTE Routine 11:08 AM CDT Positive MELISSA (antinuclear antibody) from Last 3 Months or Most Recently Relevant to Health Maintenance Results * (ABNORMAL) Comprehensive metabolic panel (07/03/2024 12:48 PM CDT) Total Protein 7.5 6.1 - 8.4 g/dL [facility] Albumin 4.6 3.5 - 5.2 g/dL [facility] Calcium 9.8 8.6 - 10.3 mg/dL [facility] BUN 25(H) 7 - 23 mg/dL [facility] Total Bilirubin 0.28 0.20 - 1.40 mg/dL [facility] Alk Phos, Total 55 35 - 129 IU/L [facility] AST (SGOT) 18 11 - 47 IU/L [facility] ALT (SGPT) 27 6 - 53 IU/L [facility] Creatinine 0.74 0.60 - 1.10 mg/dL [facility] Sodium 141 135 - 145 mmol/L [facility] Potassium 4.6 3.3 - 5.1 mmol/L [facility] Chloride 104 95 - 107 mmol/L [facility] CO2 Content 25 21 - 29 mmol/L [facility] Glucose 78 64 - 99 mg/dL [facility] Comment: NONFASTING GLUCOSE RANGE = 64-199 mg/dL FASTING GLUCOSE 64 - 99 = NORMAL FASTING GLUCOSE 100 - 125 = IMPAIRED FASTING GLUCOSE FASTING GLUCOSE >=126 = PROVISIONAL DIAGNOSIS OF DIABETES eGFR >90.0 >60.0 mL/min/1.7 3 m2 [facility] Blood 07/03/2024 12:4 8 PM CDT 07/03/2024 2:00 PM CDT Venus Siegel MD LAB BLOOD ORDERABLES Final Resul t Performing Organization Address [facility] Co de Phone Number [facility] * Hepatitis panel, acute (11/25/2021 11:08 AM CDT) Hep A IgM Nonreactive Nonreactive [facility] Comment: Interpretive Data: If Hep A IgM Ab is reported as Equivocal, a new sample should be drawn in two weeks for testing. Current interpretive data was last revised on 19. Hep B core IgM Nonreactive Nonreactive [facility] Comment: Interpretive Data If HepB Core IgM Ab is reported as Equivocal, a new sample should be drawn in two weeks for testing. Current interpretive data was last revised on 19. Hep C Ab Nonreactive Nonreactive [facility] Comment:Antibodies to HCV no t detected. Does NOT exclude the possibility of recent exposure to HCV. HepBsAg Nonreactive Nonreactive [facility] Blood 11/25/2021 11:0 8 AM CDT 11/25/2021 1:33 PM CDT Venus Siegel MD LAB MICROBIOLOGY - GENERAL ORDER RACHID Edited Result - Final Performing Organization Address [facility] Co de Phone Number [facility] Department [place] [address] from Last 3 Months or Most Recently Relevant to Health Maintenance Insurance [facility] Address: [address] [address] [facility] Advance Directives For more information, please contact: [phone] Documents on File Type Date Recorded Patient Ballet Teacher Expl anation ADVANCE DIRECTIVE 06/24/2021 3:41 PM Power of Bridal Stylist Sales Consultant-Medical * Full Code (Latest Code Status on File) Date Activated Date Inactivated Comments 07/29/2021 8:59 AM 08/03/2021 6:07 PM Care Teams Fur Dresser Relationship Specialty [place] [address] [address] [address] PCP - General Nurse Practitioner 04/11/24 Nancy Alexander MD [address] [address] Fellow Neurology 08/13/21 Caryl Lujan, OT Occupational Therapist Occupational Therapy 04/11/24
--- OUTSIDE RECORDS SUMMARY | 2024-10-15 13:16 | XMS_ITS | Encounter Summary ---
Author Organization [facility] Address [address] [place] [address] [place] [address] Care Team Providers Care Novelty Printing Machine Operator Name Role Phone José Luis Mohan MD Unavailable [phone] Eve Harris EXECUTIVE CHAIRMAN OF THE BOARD-[facility] Primary Care Provider Reason for Visit * Reason Onset Date Comments MEDICATION REFILL 08/12/2023 Encounter Details Date Type Department Care Team (Late st Contact Info) Description 08/12/2023 Refill [facility] - Neurology [address] [place] [address], [place] [id number] Davey Cleveland, EXECUTIVE CHAIRMAN OF THE BOARD-[address] [address] MEDICATION REFILL Social History Tobacco Use Types Packs/Day Years Used Date Smoking Tobacco: Former Cigarettes Q uit: 2022 Alcohol Use Standard Drinks/Week Comments No 0 (1 standard drink = 0.6 oz pur e alcohol) PHQ-2 Answer Date Recorded Patient Health Questionnaire-2 Score 2 12/06/2022 Comments No Sex and Gender Information Value Date Recorded Sex Assigned at Female 01/05/2023 1:24 PM VEST FRONT PRESSER Legal Sex Female 9:24 AM CDT Gender Identity Female 01/05/2023 1:24 PM VEST FRONT PRESSER Sexual Orientation Straight 01/05/2023 1: 24 PM VEST FRONT PRESSER documented as of this encounter Miscellaneous Notes * Telephone Encounter - Vee Mohan RN - 08/12/2023 4:00 PM CDT Refill Request Chriss Snell JEROME: 04/26/2023Dec due: rto x 6 months NOV scheduled: Visit date not found LRF: 10/21/2022 Qty Disp: 30 # of refills: none Allergies: Allergies Allergen Reactions Codeine Oral/tongue numbness; lasting weeks. Pended Medication Order: Requested Prescriptions Pending Prescriptions Disp Refills prochlorperazine (Compazine) 5 MG tablet 30 tablet 0 Sig: Take 1 (one) tablet by mouth every 6 hours as needed for Nausea/Vomiting documented in this encounter Plan of Treatment Upcoming Encounters Date Type Department Care Team (Late st Contact Info) Description 11/19/2024 9:00 AM CDT Office Visit [facility] - Neurology [address] [place] [phone] Dieter Sena, [address] [place] [address] [address] [place] [address] 12/20/2024 10:30 AM CDT Procedure visit [facility] - Neurology [address] [place] [phone] Cindy Negron APRN-SALES ADMINISTRATION SPECIALIST [address] [place] [address] [address] [place] [address] documented as of this encounter Visit Diagnoses Not on filedocumented in this encounter Care Teams Novelty Printing Machine Operator Relationship Specialty Start Date End Date Eve Harris, EXECUTIVE CHAIRMAN OF THE BOARD-[employer] ADMINISTRATION SPECIALIST [id number] [address] PCP - General Nurse Practitioner Family 10/21/22 José Luis Mohan MD Electrophysiology 04/16/14 documented as of this encounter
--- OUTSIDE RECORDS SUMMARY | 2024-10-15 13:17 | XMS_ITS | Patient Health Record ---
Author Organization [facility] Address [address] [place] [address] Care Team Providers Care Rope Cleaner Name Role Phone GreenKarli Primary Care Provider Allergies Allergen (clinical drug ingredient) Drug/Non Drug Allergy documented on EMR Reaction Allergy Type Onset Date Status codeine Codeine numbness Drug Allergy Active Reason For Referral No Information Medications Medication SIG (Take, Route, Frequency, Duration) Notes Start Date End Date Status Lacosamide 100 MG 1 tablet Orally Twic e a day Active hydrOXYzine HCl 50 MG 1 tablet as needed Orally three times a day Active metroNIDAZOLE 0.75 % Vaginal; Duration: 5 Days Active Nurtec 75 MG DISSOLVE 1 TABLET ON THE TONGUE DAILY NEEDED FOR MIGRAINE Oral; Duration: 8 Days Active Aimovig 70 MG/ML Subcutaneous; Duration: 30 Days Active Qvar RediHaler 80 MCG/ACT Inhalation; Du ration: 30 Days Active Lacosamide 100 MG Oral; Duration: 25 Days Active Albuterol Sulfate HFA 108 (9 0 Base) MCG/ACT Inhalation; Duration: 30 Days Active Fluticasone Propionate 50 MCG/ACT Nasal; Duration: 30 Days Active buPROPion HCl ER (XL) 300 MG 1 tablet in the morning Orally Once a day; Duration: 30 days Active Vitamin D (Ergocalciferol) 1.25 MG (63120 UT) 1 capsule Oral once a week; Duration: 30 days Active Triamcinolone Acetonide 0.1 % External; Duration: 21 Days Active Hydroxychloroquine Sulfate 2 00 MG Oral; Duration: 30 Days Active QUEtiapine Fumarate 50 MG 1-2 tablet at bedtime as needed Orally Once a day; Duration: 30 days 05/29/2024 Active Prazosin HCl 2 MG 1 capsule at bedtime Orally Once a day; Duration: 30 days Active busPIRone HCl 10 MG 1 tablet as needed Orally three times a day; Duration: 30 days As needed 01/06/2024 Active Strattera 100 MG 1 capsule in the morning Orally Once a day; Duration: 30 days atomoxetine Active GaviLyte-G 236 GM Oral; Duration: 1 Days Active Social History Tobacco Use: Social History Observation Description Date Details (start date - stop date) Current Smoker NA - NA Sex Assigned At : Social History Observation Description Sex Assigned At Female Tobacco Control (Standard) Question Answer Notes Tobacco use: Current smoker Problems Problem Type SNOMED Code ICD Code Onset Dates Problem Status W/U Status Risk Notes Problem Tobacco user (480009090) Nicotine dependence, unspecified, uncomplicated (F17.200) Active confirmed Problem Posttraumatic stress disorder (72851570) PTSD (post-traumatic stress disorder) (F43.10) Active confirmed Problem Attention deficit hyperactivity disorder (370082044) ADHD (attention deficit hyperactivity disorder) (F90.9) Active confirmed Problem Generalized anxiety disorder (44679064) АНДРЕЙ (generalized anxiety disorder) (F41.1) Active confirmed Problem Dissociative disorder (69170109) Disassociation disorder (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) Active confirmed Problem Bipolar 2 disorder (48558037) Bipolar 2 disorder (F31.81) Active confirmed Encounters Encounter Location Date Provider Diagnosis [facility] [address] [place] [address] 12/06/2023 Karli Green Moderate episode of recurrent major depressive disorder F33.1 ; АНДРЕЙ (generalized anxiety disorder) F41.1 ; PTSD (post-traumatic stress disorder) F43.10 and Bipolar 2 disorder F31.[address] [place] [address] 01/06/2024 Karli Green Bipolar 2 disorder F31.81 ; PTSD (post-traumatic stress disorder) F43.10 ; АНДРЕЙ (generalized anxiety disorder) F41.1 ; ADHD (attention deficit hyperactivity disorder) F90.9 and Nicotine dependence, unspecified, uncomplicated F17.200 [facility] [address] [place] [address] 03/28/2024 Karli Green Bipolar 2 disorder F31.81 ; АНДРЕЙ (generalized anxiety disorder) F41.1 ; PTSD (post-traumatic stress disorder) F43.10 ; ADHD (attention deficit hyperactivity disorder) F90.9 and Nicotine dependence, unspecified, uncomplicated F17.200 [facility] [address] [place] [address] 05/29/2024 Karli Green Bipolar 2 disorder F31.81 ; ADHD (attention deficit hyperactivity disorder) F90.9 ; АНДРЕЙ (generalized anxiety disorder) F41.1 and PTSD (post-traumatic stress disorder) F43.[address] [place] [address] 07/06/2024 Karli Green Bipolar 2 disorder F31.81 ; PTSD (post-traumatic stress disorder) F43.10 and АНДРЕЙ (generalized anxiety disorder) F41.1 [facility] [address] [place] [address] 09/25/2024 Karli Green Bipolar 2 disorder F31.81 ; АНДРЕЙ (generalized anxiety disorder) F41.1 ; PTSD (post-traumatic stress disorder) F43.10 and ADHD (attention deficit hyperactivity disorder) F90.[address] [place] [address] 12/05/2023 Karli Green [address] [place] [address] 12/16/2023 Karli Green Moderate episode of recurrent major depressive disorder F33.1 [facility] [place] [address] [place] [address] 03/07/2024 Karli Green [facility] [place] [address] [place] [address] 03/12/2024 Karli Green [address] [address] 03/20/2024 Karli Green [address] [place] [address] 03/23/2024 Karli Green [address] [place] [address] 05/21/2024 Karli [facility] [address] [place] [address] 06/27/2024 Karli [facility] [address] [place] [address] 07/09/2024 Karli Green [facility] [address] [place] [address] 09/10/2024 [facility] Bipolar 2 disorder F31.81 Assessments Encounter Date Diagnosis (ICD Code) Assessment Notes Treatment Notes Treatment Clinical Notes Section Notes 12/06/2023 Moderate episode of recurrent major depressive disorder (ICD-10 - F33.1) Increase Wellbutrin to help with depression. Continue therapy and safety plan with therapist. May self-administer medications or be administered own oral medications per [facility] protocols. Provided informed consent with understanding of side effects, adverse effects, risks and benefits as well as alternative treatments as previously discussed and with the above recommended medications & other aspects of the treatment program. Agrees to return sooner if symptoms worsen or suicidal or homicidal ideations occur. 12/16/2023 Moderate episode of recurrent major depressive disorder (ICD-10 - F33.1) 01/06/2024 Bipolar 2 disorder (ICD-10 - F31.81) Add buspar to help with anxiety. She was hopeful for a benzodiazapine. She is also worried about relapse. Attending meetings and therapy. Continue services as scheduled. Labs completed recently. May self-administer medications or be administered own oral medications per [facility] protocols. Provided informed consent with understanding of side effects, adverse effects, risks and benefits as well as alternative treatments as previously discussed and with the above recommended medications & other aspects of the treatment program. Agrees to return sooner if symptoms worsen or suicidal or homicidal ideations occur. 03/28/2024 Bipolar 2 disorder (ICD-10 - F31.81) Continue current medications. Continue services as scheduled. Labs completed recently. May self-administer medications or be administered own oral medications per [facility] protocols. Provided informed consent with understanding of side effects, adverse effects, risks and benefits as well as alternative treatments as previously discussed and with the above recommended medications & other aspects of the treatment program. Agrees to return sooner if symptoms worsen or suicidal or homicidal ideations occur. 07/06/2024 Bipolar 2 disorder (ICD-10 - F31.81) increase Seroquel to 1-2 tabs at bedtime. Will monitor appetite. . Continue services as scheduled. Labs completed recently. May self-administer medications or be administered own oral medications per [facility] protocols. Provided informed consent with understanding of side effects, adverse effects, risks and benefits as well as alternative treatments as previously discussed and with the above recommended medications & other aspects of the treatment program. Agrees to return sooner if symptoms worsen or suicidal or homicidal ideations occur. 09/10/2024 Bipolar 2 disorder (ICD-10 - F31.81) 05/29/2024 Bipolar 2 disorder (ICD-10 - F31.81) Stop Trazodone due to side effects and inefficacy. Start a low dose of Seroquel to help with sleep. She has plenty of hydroxyzine and buspar, taking PRN. Reviewed Prescription Monitoring program. Continue services as scheduled. Labs completed recently. May self-administer medications or be administered own oral medications per [facility] protocols. Provided informed consent with understanding of side effects, adverse effects, risks and benefits as well as alternative treatments as previously discussed and with the above recommended medications & other aspects of the treatment program. Agrees to return sooner if symptoms worsen or suicidal or homicidal ideations occur. 09/25/2024 Bipolar 2 disorder (ICD-10 - F31.81) 07/06/2024 PTSD (post-traumatic stress disorder) (ICD-10 - F43.10) 03/28/2024 АНДРЕЙ (generalized anxiety disorder) (ICD-10 - F41.1) 09/25/2024 АНДРЕЙ (generalized anxiety disorder) (ICD-10 - F41.1) 05/29/2024 ADHD (attention deficit hyperactivity disorder) (ICD-10 - F90.9) 01/06/2024 PTSD (post-traumatic stress disorder) (ICD-10 - F43.10) 12/06/2023 АНДРЕЙ (generalized anxiety disorder) (ICD-10 - F41.1) 12/06/2023 PTSD (post-traumatic stress disorder) (ICD-10 - F43.10) 01/06/2024 АНДРЕЙ (generalized anxiety disorder) (ICD-10 - F41.1) 03/28/2024 PTSD (post-traumatic stress disorder) (ICD-10 - F43.10) 05/29/2024 АНДРЕЙ (generalized anxiety disorder) (ICD-10 - F41.1) 09/25/2024 PTSD (post-traumatic stress disorder) (ICD-10 - F43.10) 07/06/2024 АНДРЕЙ (generalized anxiety disorder) (ICD-10 - F41.1) 09/25/2024 ADHD (attention deficit hyperactivity disorder) (ICD-10 - F90.9) 05/29/2024 PTSD (post-traumatic stress disorder) (ICD-10 - F43.10) 03/28/2024 ADHD (attention deficit hyperactivity disorder) (ICD-10 - F90.9) 01/06/2024 ADHD (attention deficit hyperactivity disorder) (ICD-10 - F90.9) 12/06/2023 Bipolar 2 disorder (ICD-10 - F31.81) 01/06/2024 Nicotine dependence, unspecified, uncomplicated (ICD-10 - F17.200) 03/28/2024 Nicotine dependence, unspecified, uncomplicated (ICD-10 - F17.200) 09/25/2024 Other Continue current medications. Wants to reduce Seroquel and use melatonin and/or magnesium for sleep. Continue services as scheduled. Labs completed recently. May self-administer medications or be administered own oral medications per [facility] protocols. Provided informed consent with understanding of side effects, adverse effects, risks and benefits as well as alternative treatments as previously discussed and with the above recommended medications & other aspects of the treatment program. Agrees to return sooner if symptoms worsen or suicidal or homicidal ideations occur. Plan Of Treatment No Information Insurance Providers Payer Name Payer Address Payer Phone Subscriber Number Group Number Insured Name Patient Relationship to Insured Coverage Start Date Coverage End Date MEDICAID [address] [facility] [place] [address] [id number] Chriss Snell Self - patient is the insured 1 [address] [place] [address] [id number] Chriss Snell Self - patient is the insured 3 [employer] [address] [place] [address] [id number] Chriss Snell Self - patient is the insured 3 MEDICAID [facility] [address] [place] [address] [id number] Chriss Snell Self - patient is the insured 2 2 Medical (General) History Medical History History ICD Code Brain Tumor Seizures Migraines Moderate episode of recurrent major depr essive disorder F33.1 Surgical History Surgery Date(Month/Year) cholecystectomy Partial hysterectomy tubal ligation Hospitalization History Reason Date(Month/Year) Pneumonia 2017
--- OUTSIDE RECORDS SUMMARY | 2024-10-15 13:17 | XMS_ITS | Encounter Summary ---
Author Organization [facility] Address [address] [place] [address] Care Team Providers Care Optical Glass Sawyer Name Role Phone José Luis Mohan MD Unavailable Eve Harris MOLD REPAIRER-CO FOUNDER AND CHIEF STRATEGY OFFICER Primary Care Provider Reason for Visit * Reason Onset Date Comments Results 10/11/2022 Encounter Details Date Type Department Care Team (Late st Contact Info) Description 10/11/2022 Telephone [facility] - Centralized Scheduling [address] [place] [address] Marylu Mccauley MD [address] [facility] [address] [place] [address] Results Social History Tobacco Use Types Packs/Day Years Used Date Smoking Tobacco: Every Day Cigarettes Last attempted to quit: 12/19/2010 Alcohol Use Standard Drinks/Week Comments No 0 (1 standard drink = 0.6 oz pur e alcohol) Comments No Sex and Gender Information Value Date Recorded Sex Assigned at Female 01/05/2023 1:24 PM MERCHANDISE COMPLAINT ADJUSTER Legal Sex Female 9:24 AM CDT Gender Identity Female 01/05/2023 1:24 PM MERCHANDISE COMPLAINT ADJUSTER Sexual Orientation Straight 01/05/2023 1: 24 PM MERCHANDISE COMPLAINT ADJUSTER documented as of this encounter Miscellaneous Notes * Telephone Encounter - Fly Chaparro - 10/11/2022 1:38 PM CDT Contacted patient and advised to upload image on MyChart to be forwarded to provider. Fly Chaparro MA * Telephone Encounter - Sonja Miles - 10/11/2022 11:53 AM CDT Please call patient in regards to previous biopsy site on her face, she has a concern documented in this encounter Plan of Treatment Upcoming Encounters Date Type Department Care Team (Late st Contact Info) Description 11/19/2024 9:00 AM CDT Office Visit [facility] - Neurology [address] [place] [address], [place] [address] Dieter Sena, [address] [place] [address] [address] [place] [address] 12/20/2024 10:30 AM CDT Procedure visit [facility] - Neurology [address] [place] [address], [place] [address] Cindy Negron, MOLD REPAIRER-CO FOUNDER AND CHIEF STRATEGY OFFICER [address] [place] [address] [address] [place] [address] documented as of this encounter Visit Diagnoses Not on filedocumented in this encounter Care Teams Optical Glass Sawyer Relationship Specialty Start Date End Date Eve Harris, MOLD REPAIRER-CO FOUNDER AND CHIEF STRATEGY OFFICER [address] [facility] [address] [place] [address] PCP - General Nurse Practitioner Family 10/21/22 José Luis Mohan MD Electrophysiology 04/16/14 documented as of this encounter
--- OUTSIDE RECORDS SUMMARY | 2024-10-15 13:17 | XMS_ITS | Encounter Summary ---
Author Organization [facility] Address [address] [place] [address] Care Team Providers Care Machine Biller Name Role Phone José Luis Mohan MD Unavailable [phone] Eve Harris APRN-STILL CLEANER TUBE Primary Care Provider Reason for Visit * Reason Onset Date Comments Appointment 01/25/2023 Encounter Details Date Type Department Care Team (Late st Contact Info) Description 01/25/2023 Telephone [facility] - Dermatology [address] [place] [address], [place] [address] Marylu Mccauley MD [address] [place] [address] [place] [address] Appointment Social History Tobacco Use Types Packs/Day Years Used Date Smoking Tobacco: Every Day Cigarettes Last attempted to quit: 12/19/2010 Alcohol Use Standard Drinks/Week Comments No 0 (1 standard drink = 0.6 oz pur e alcohol) PHQ-2 Answer Date Recorded Patient Health Questionnaire-2 Score 2 12/06/2022 Comments No Sex and Gender Information Value Date Recorded Sex Assigned at Female 01/05/2023 1:24 PM CHARACTER ARTIST Legal Sex Female 9:24 AM CDT Gender Identity Female 01/05/2023 1:24 PM CHARACTER ARTIST Sexual Orientation Straight 01/05/2023 1: 24 PM CHARACTER ARTIST documented as of this encounter Miscellaneous Notes * Telephone Encounter - Tracy Hassan 01/28/2023 1:30 PM CST Pt is returning missed call. She is wanting to take appointment on Tuesday ACTER ARTIST * Telephone Encounter - Madelyn Severino - 01/25/2023 12:08 PM CST Patient calling to get scheduled in concerns to a rash she discussed with Dr Mccauley. Next available not until May. Please advise ACTER ARTIST documented in this encounter Plan of Treatment Upcoming Encounters Date Type Department Care Team (Late st Contact Info) Description 11/19/2024 9:00 AM CDT [facility] - Neurology [address] [place] [address] Dieter Sena, [address] [place] [address] [address] [place] [address] 12/20/2024 10:30 AM CDT Procedure visit [facility] - Neurology [address] [place] [address] Cindy Negron, PELOTA MAKER-STILL CLEANER TUBE [address] [place] [address] [address] [place] [address] documented as of this encounter Visit Diagnoses Not on filedocumented in this encounter Care Teams Machine Biller Relationship Specialty Start Date End Date Eve Harris, PELOTA MAKER-STILL CLEANER TUBE [address] [facility] [address] [place] [address] PCP - General Nurse Practitioner Family 10/21/22 José Luis Mohan MD Electrophysiology 04/16/14 documented as of this encounter
--- OUTSIDE RECORDS SUMMARY | 2024-10-15 13:17 | XMS_ITS | Encounter Summary ---
Author Organization [facility] Address [facility] [place] [address] Care Team Providers Care Full Time Paramedic Name Role Phone José Luis Mohan MD Unavailable [phone] Eve Harris STAFF CONSULTANT-SELF STORAGE MANAGER Primary Care Provider Reason for Visit * Reason Onset Date Comments MEDICATION REFILL 08/26/2023 Encounter Details Date Type Department Care Team (Late st Contact Info) Description 08/26/2023 Refill [facility] [place] [address] Stacy Mills APRN-SELF STORAGE MANAGER [address] [place] [address] MEDICATION REFILL Social History Tobacco Use Types Packs/Day Years Used Date Smoking Tobacco: Former Cigarettes Q uit: 2022 Alcohol Use Standard Drinks/Week Comments No 0 (1 standard drink = 0.6 oz pur e alcohol) PHQ-2 Answer Date Recorded Patient Health Questionnaire-2 Score 2 12/06/2022 Comments No Sex and Gender Information Value Date Recorded Sex Assigned at Female 01/05/2023 1:24 PM DAIRY HUSBANDRY TEACHER Legal Sex Female 9:24 AM CDT Gender Identity Female 01/05/2023 1:24 PM DAIRY HUSBANDRY TEACHER Sexual Orientation Straight 01/05/2023 1: 24 PM DAIRY HUSBANDRY TEACHER documented as of this encounter Miscellaneous Notes * Telephone Encounter - Agata Cartagena - 08/26/2023 1:31 PM CDT Refill Request Chriss Snell JEROME: 04-26-23Dec due: 6 mos NOV scheduled: 11-17-23 LRF: 01-25-23 Qty Disp: 60 # of refills: 5 Allergies: Allergies Allergen Reactions Codeine Oral/tongue numbness; lasting weeks. Pended Medication Order: Requested Prescriptions Pending Prescriptions Disp Refills lacosamide (Vimpat) 100 MG tablet 60 tablet 5 Sig: Take 1 (one) tablet by mouth 2 times daily 24 documented in this encounter Plan of Treatment Upcoming Encounters Date Type Department Care Team (Late st Contact Info) Description 11/19/2024 9:00 AM CDT Office Visit [facility] - Neurology [address] [place] [address] Dieter Sena, [address] [place] [address] [address] [place] [address] 12/20/2024 10:30 AM CDT Procedure visit [facility] - Neurology [address] [place] [address] Cindy Negron, STAFF CONSULTANT-SELF STORAGE MANAGER [address] [place] [address] [address] [place] [address] documented as of this encounter Visit Diagnoses Not on filedocumented in this encounter Care Teams Full Time Paramedic Relationship Specialty Start Date End Date Eve Harris, STAFF CONSULTANT-SELF STORAGE MANAGER [address] [facility] [address] [place] [address] PCP - General Nurse Practitioner Family 10/21/22 José Luis Mohan MD Electrophysiology 04/16/14 documented as of this encounter
--- OUTSIDE RECORDS SUMMARY | 2024-10-15 13:17 | XMS_ITS | Encounter Summary ---
Author Organization [facility] Address [address] [place] [address] Care Team Providers Care Drum Sander Name Role Phone Cyril Uribe MD Primary Care Provider [phone] José Luis Mohan MD Unavailable [phone] Shanice Barahona MD Primary Care Provider Paulina Prasad DO Primary Care Provider [phone] Eve Harris ENVIRONMENTAL SERVICES LEAD-SHELLFISH MANAGER Primary Care Provider Encounter Details Date Type Department Care Team (Late st Contact Info) Description 01/30/2013 Telephone [facility] Maternal & Care [address] [place] [address] Kandice Fitzpatrick, [facility] [place] [address] [place] [address] Social History Tobacco Use Types Packs/Day Years Used Date Smoking Tobacco: Former Cigarettes Q uit: 12/19/2010 Alcohol Use Standard Drinks/Week Comments No 0 (1 standard drink = 0.6 oz pur e alcohol) Comments Yes Sex and Gender Information Value Date Recorded Sex Assigned at Female 01/05/2023 1:24 PM FINAL OPERATIONS TECHNICIAN Legal Sex Female 9:24 AM CDT Gender Identity Female 01/05/2023 1:24 PM FINAL OPERATIONS TECHNICIAN Sexual Orientation Straight 01/05/2023 1: 24 PM FINAL OPERATIONS TECHNICIAN documented as of this encounter Plan of Treatment Upcoming Encounters Date Type Department Care Team (Late st Contact Info) Description 11/19/2024 9:00 AM CDT [facility] [address] [place] [address], [place] [address] Dieter Sena DO [address] [place] [address] [address] [place] [address] 12/20/2024 10:30 AM CDT Procedure [facility] Neurology [address] [place] [address], [place] [address] Cindy Negron, ENVIRONMENTAL SERVICES LEAD-[place]LLFISH MANAGER [address] [place] [address] [address] [place] [address] documented as of this encounter Visit Diagnoses Not on filedocumented in this encounter Care Teams Drum Sander Relationship Specialty Start Date End Date Cyril Uribe MD [address] [place] [phone] PCP - General Internal Medicine 02/29/12 01/12/15 Shanice Barahona MD [address] [place] [address] [place] [phone] PCP - General Family Medicine 01/13/15 05/22/18 Paulina Prasad DO [address] [place] [address] PCP - General 05/03/22 08/31/22 Eve Harris, ENVIRONMENTAL SERVICES LEAD-[place]LLFISH MANAGER [address] [address] PCP - General Nurse Practitioner Family 10/21/22 José Luis Mohan MD [address] [place] [address] Electrophysiology 04/16/14 documented as of this encounter
--- OUTSIDE RECORDS SUMMARY | 2024-10-15 13:17 | XMS_ITS | Clinical Summary ---
Author Organization [facility] Address [address] [facility] [place] [address] Care Team Providers Care Winder Hand Name Role Phone José Luis Mohan MD Unavailable [phone] Eve Harris APRN-SCIENTIFIC AIDE Primary Care Provider Source Comments [facility],non-owned Affiliates and Associated Physician Practices is amultiple site organization consisting of ambulatory clinics and hospital sitesin [place], [place], [place] and [place]. This disclosure is being madepursuant to the Care Everywhere program and may not contain all information available regarding this patient. Last updated 17.[facility] Allergies Active Allergy Reactions Criticality Noted Date Comments Codeine 06/18/2013 Oral/tongue numbness; lasting weeks. Medications * This document contains information received from the source organization and may not represent a complete record from that organization. * Be aware that medications may not be up to date on this document. Alwaysverify current medications with the patient. albuterol HFA (PROVENTIL;VENTOLI N;PROAIR) 108 (90 BASE) MCG/ACT inhalerIndications :Asthma,Exercise-I nduced Bronchospastic Disease Inhale 2 (two) puffs by mouth every 6 hours as needed Reasons: Asthma, Exercise-Induced Bronchospastic Disease Active Qvar RediHaler 80 MCG/ACT inhaler Inhale 1 (one) puff by mouth 06/12/19 23 Active Cholecalciferol (vitamin D3) 1.25 MG (72541 UT) capsule Take 1 (one) capsule by mouth 06/15/19 23 Active prazosin (Minipress) 1 MG capsule Take 2 (two) capsules by mouth at bedtime 04/24/19 22 Active montelukast (Singulair) 10 MG tablet Take 1 (one) tablet by mouth once daily 04/09/19 23 Active fluticasone propionate (Flonase) 50 MCG/ACT nasal spray [place] 1 (one) spray into the nose once daily 11/04/19 22 Active hydroxychloroquine (Plaquenil) 200 MG tablet Take 1 (one) tablet by mouth two times daily at 4am and 4pm 10/12/19 23 Active cetirizine (ZyrTEC ALLERGY) 10 MG tabletIndications: Rash and other nonspecific skin eruption Take 1 (one) tablet by mouth once daily Can take up to 4 tabs a day 60 tablet 3 02/01/20 23 Active triamcinolone acetonide (Kenalog) 0.1 % ointmentIndication s:Rash and other nonspecific skin eruption Apply to rash twice daily. 30 days supply, use no more than 15 days a month. 80 g 3 02/01/20 23 Active vitamin D, ergocalciferol, (Drisdol) 1.25 MG (72114 UT) capsule 04/06/19 24 Active buPROPion XL 24hr (Wellbutrin-XL) 150 MG tablet TAKE 1 TABLET BY MOUTH DAILY IN THE MORNING 04/26/19 24 Active meloxicam (Mobic) 15 MG tablet Take 1 (one) tablet by mouth once daily 07/19/19 24 Active Strattera 100 MG capsule 1 capsule in the morning Orally Once a day for 30 days 01/26/20 23 Active butalbital-aspirin -caffeine (Fiorinal) 50-325-40 MG tablet 1 tab po TID prn migraine 30 tablet 2 03/27/19 25 Active onabotulinumtoxin A (Botox) 100 units injectionIndicatio ns:Intractable chronic migraine without aura and without status migrainosus Inject 155 (one hundred fifty five) Units into muscle Every 90 days 2 Each 1 06/15/19 25 Active busPIRone (Buspar) 10 MG tablet Take 1 (one) tablet by mouth 3 times daily 06/06/19 25 Active onabotulinumtoxin A (Botox) 100 units injectionIndicatio ns:Intractable chronic migraine without aura and without status migrainosus Inject 155 (one hundred fifty five) Units into muscle Every 90 days 2 Each 1 09/14/19 25 Active erenumab-aooe (Aimovig) 70 MG/ML auto injector penIndications:Int ractable chronic migraine without aura and without status migrainosus Inject 1 mL subcutaneously every 30 days 1 mL 5 09/14/19 25 Active rimegepant (Nurtec) 75 MG tabletIndications: Intractable chronic migraine without aura and without status migrainosus Take 75 mg by mouth once daily as needed for Migraine 8 tablet 5 09/14/19 25 Active Active Problems Problem Noted Date Diagnosed Date Vitamin D deficiency 01/19/2024 Attention deficit hyperactivity disorder 023 02/02/2023 Dissociative disorder 02/02/2023 02/02/2023 Cigarette nicotine dependenc e with nicotine-induced disorder 07/14/2022 11/05/2022 Family hx of colon cancer 07/09/20222022 Overview (11/05/2022): Added automatically from request for surgery [id number] History of colon polyps 07/09/2022 11/06/19 23 Overview (11/05/2022): Added automatically from request for surgery [id number] Weakness of left side of body 05/21/2022 Irregular periods 04/15/2022 06/30/2022 Moderate recurrent major depression 04/15/2022 06/30/2022 Chronic migraine w/o aura, not intractable, w st at migr 03/29/2022 06/30/2022 Disorder of connective tissue 03/08/2022 Overview (06/30/2022): Last Assessment & Plan: Follows with rheumatology. No contraindications to HCQ use at this time. 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 If no concerns, okay to return annually for DFE until 5 years of cumulative use, then restart OCT 5 line macula and HVF 10-2 annually. High risk medications (not anticoagulants) long- term use 03/08/2022 06/30/2022 Anxiety 10/15/2021 06/30/2022 Chronic fatigue syndrome 10/15/2021 023 Hair loss 10/15/2021 06/30/2022 Anemia 06/01/2021 06/30/2022 Depression 06/01/2021 06/30/2022 Dysuria 06/01/2021 06/30/2022 Family history of hypertension 06/01/2021 0 06/30/2022 Menorrhagia 06/01/2021 06/30/2022 Microscopic hematuria 06/01/2021 06/30/2022 Nightmares 06/01/2021 06/30/2022 Recurrent urinary tract infection 06/01/2021 06/30/2022 Seasonal allergic rhinitis due to pollen 022 06/30/2022 Tobacco user 06/01/2021 06/30/2022 Vaginitis 06/01/2021 06/30/2022 Brain mass 05/18/2021 06/30/2022 Elevated antinuclear antibody (MELISSA) level 202111/05/2022 Abnormal electrocardiogram 06/14/201806/30 Arm pain, left 06/14/2018 06/30/2022 Chest pain 06/14/2018 06/30/2022 Pain in unspecified limb 06/14/2018 023 Polyp of colon 06/06/2018 06/30/2022 Paroxysmal ventricular tachycardia 03/03/2015 Palpitations 06/18/2013 Asthma 06/18/2013 Asthma complicating , antepartum 2012 SVT (supraventricular tachycardia) 01/23/2013 Choroid plexus cyst of fetus 12/20/2012 Positive result on maternal serum screen for tri somy 18 12/20/2012 Overview (12/20/2012): NIPT pending Encounter for (NT) nuchal translucency scan 09/28 GERD (gastroesophageal reflux disease) 0 06/30/2022 Resolved Problems Problem Noted Date Diagnosed Date Resolved Date Post-operative state 08/08/2023 024 Overweight (BMI 25.0-29.9) 07/14/2022 11/05/2022 1 Bipolar II disorder 04/15/2022 06/30/2022 12/15/19 24 Decreased movement during 06/01/2021 06/30/2022 12/15/2023 problem 06/01/2021 06/30/2022 12/15/2023 Upper respiratory infection 06/01/2021 06/30/2022 07/14/2022 Supervision of other high-risk 10/27/2012 12/15/2023 Overview (01/05/2015): Maternal arrhythmia complicating 10/24/2012 12/15/2023 Overview (07/22/2014): SVT Encounters Date Type Department Care Team Description 09/13/2024 1:00 PM CDT Procedure visit [facility] - Neurology [address] [place] [address] Cindy Negron, FURNACE OPERATOR OIL OR GAS-SCIENTIFIC AIDE Intractable chronic migraine without aura and without status migrainosus 09/13/2024 Travel 08/01/2024 Telephone [facility] - Centralized Scheduling [address] [place] [address] Dieter Sena, DO Appointment from Last 3 Months Immunizations Immunization Administration Dates Next Due HEP B VACCINE, ADULT 3 DOSE 11/08/2013, 2,07/12/2011 INFLUENZA VACCINE 05/11/2024,11/20/2013 INFLUENZA VACCINE, QUADR. (F LUZONE; FLULAVAL; FLUARIX; AFLURIA QUADRIVALENT; 6MO+), 0.5 ML (IIV4) 12/24/2014,11/20/2013 MMR 11/22/2013 MMR/VARICELLA 11/22/2013 TDAP (7yrs+) 08/21/2016,07/12/2011 VARICELLA 09/17/2011 Family History Medical History Relation Name Comments Hypertension Brother Thyroid Disease Father Dementia Maternal Grandfather COPD - Chronic Obstructive Pulmonary Disease Maternal Grandmother Diabetes Maternal Grandmother Emphysema Maternal Grandmother Thyroid Disease Mother Cancer - Colon Paternal Grandfather Cancer - Other Paternal Grandmother Asthma Sister Relation Name Status Comments Brother Alive Father Maternal Grandfather Maternal Grandmother Mother Paternal Grandfather Paternal Grandmother Sister Alive Social History Tobacco Use Types Packs/Day Years Used Date Smoking Tobacco: Former Cigarettes Q uit: 2022 Tobacco Cessation:Counseling Given: Not Answered Alcohol Use Standard Drinks/Week Comments No 0 (1 standard drink = 0.6 oz pur e alcohol) PHQ-2 Answer Date Recorded Patient Health Questionnaire-2 Score 0 09/13/2024 Comments No Sex and Gender Information Value Date Recorded Sex Assigned at Female 01/05/2023 1:24 PM BANK APPRAISER Legal Sex Female 9:24 AM CDT Gender Identity Female 01/05/2023 1:24 PM BANK APPRAISER Sexual Orientation Straight 01/05/2023 1: 24 PM BANK APPRAISER Last Filed Vital Signs Vital Sign Reading Time Taken Comments Blood Pressure 104/65 09/13/2024 1:11 PM CDT Pulse 109 09/13/2024 1:11 PM CDT Temperature 36.7 C (98 F) 06/14/2024 9:30 AM CDT Respiratory Rate 16 12/05/2023 12:54 PM CDT Oxygen Saturation 99% 09/13/2024 1:11 PM CDT Inhaled Oxygen Concentration - - Weight 70.8 kg (156 lb) 09/13/2024 1:11 PM CDT Height 175.3 cm (5' 9) 09/13/2024 1:11 PM CDT Body Mass Index 23.04 09/13/2024 1:11 PM CDT Plan of Treatment Upcoming Encounters Date Type Department Care Team (Late st Contact Info) Description 11/19/2024 9:00 AM CDT Office Visit [facility] - Neurology [address] [place] [address], [facility] [place] [phone] Dieter Sena, [address] [place] [address] [place] [phone] 12/20/2024 10:30 AM CDT Procedure visit [facility] - Neurology [address] [place] [address], [place] [phone] Cindy Negron, FURNACE OPERATOR OIL OR GAS-SCIENTIFIC AIDE [address] [place] [address] Health Maintenance Due Date Last Done Comments HIV SCREENING 1996 PNEUMOCOCCAL VACCINE (1 of 2 - PCV) 2000 PAP SMEAR 2002 HPV VACCINE (1 - 3-dose SCDM series) 2008 COVID-19 VACCINE (3 - season) 2023 03/07/2020, 02/15/2020 INFLUENZA VACCINE (#1) 2024 , 12/24/2014, 11/20/2013, Additional history exists MAMMOGRAM 03/29/2026 03/29/2024, 03/02, 05/07/2022, Additional history exists DTAP/TDAP/TD VACCINES (3 - Td or Tdap) 08/21/2026 08/21/2016, 07/12/2011 LIPID TESTING 01/16/2029 01/17/2024, 03/02, 04/30/2022, Additional history exists ZOSTER VACCINE (1 of 2) 09/06/2031 HEPATITIS B VACCINE Completed 11/08/2013, 09/17/2011, 07/12/2011 HEPATITIS C SCREENING Completed 11/25/2021 DEPRESSION SCREENING Completed 09/13/2024, 02/17/2023, 02/02/2023, Additional history exists HIB VACCINE Aged Out No longer eligi ble based on patient's age to complete this topic MENINGOCOCCAL (Group B) VACCINE SHARED DECISION-MAKING Aged Out No longer eligible based on patient's age to complete this topic MENINGOCOCCAL GROUPS A/C/Y/W VACCINE Aged Out No longer eligible based on patient's age to complete this topic Medical Devices Implanted Type Area Delicatessen Department Manager Device Identifier Shelf Expiration Date Model / Serial / Lot Sys Ureth Supp Obtryx Midurethral Trnstr Implanted:Qty: 1 on 08/08/2023 by Vera Ramirez Che, MD at [facility] N/A: Groin [employer] 04/12/2026 [id number] / / [id number] Procedures Procedure Name Priority Date/Time Associated Diagnosis Comments CO CHEMODENERV MUSC MIGRAINE Routine 09/13/2024 1:36 PM CDT Intractable chronic migraine without aura and without status migrainosus from Last 3 Months Results * CO CHEMODENERV MUSC MIGRAINE (09/13/2024 1:36 PM CDT) Narrative Cindy Negron APRN-JERSON - 09/13/2024 1:36 PM CDT Cindy Negron APRN-JERSON 09/13/2024 1:40 PM Botox Procedure Note Patient's identity confirmed by having patient say first and last name. Diagnosis: Chronic migraine Procedure code: 93843 History: Baseline number of headaches per month:20 Current headaches per month: 2-5 Current migraine prophylactic medications:Aimovig Current migraine abortive treatments:Nurtec, Fioricet Date of last injection: 06/14/2024 Duration of benefit: 2-3 months Side effects after the last injection: None Antiplatelet/Anticoagulation: None The indications for botulinum toxin administration, the transient nature of the expected benefit and the potential side effects including lack of improvement, pain, infection, bleeding, allergic reaction, excessive local or distant paralysis, including the possibility of shortness of breath, swallowing difficulty, droopy eyelid and double vision were discussed. The patient had an opportunity to ask questions and consented to the procedure. BOTOX ADMINISTRATION MODIFIED PREEMPT PROTOCOL Diluted 200 units of Botox with 4 ml of non-preserved normal saline Drawn into 1 ml syringes fitted with 30 gauge 0.5 inch needles. Each syringe had 1 ml = 50 units, and 0.1 ml = 5 units Administration: Corrugators 10 Units (2 sites) Procerus 5 Units L and R Frontalis 20 units (4 sites) R Temporalis 20 units (4 sites) L Temporalis 20 units (4 sites) R Occipitalis 15 units (3 sites) L Occipitalis 15 units (3 sites) R Cervical paraspinals 10 units (over 2 sites) L Cervical paraspinals 10 units (over 2 sites) L. Trapezius 15 units (over 3 sites) R. Trapezius 15 units (over 3 sites) Total 155 units 45 units wasted There were no complications. The patient tolerated the procedure well. Patient is to inform me if any side effects from botox treatment occurs or if questions arise. Patient to return in 3 months for next Botox treatment. Ordered 200 units for next visit. Cindy Negron FURNACE OPERATOR OIL OR GAS-SCIENTIFIC AIDE PROCEDURE/MINOR SURGIC AL ORDERABLES Final Result from Last 3 Months Insurance [facility] Care Teams Winder Hand Relationship Specialty Start Date End Date Eve Harris, FURNACE OPERATOR OIL OR GAS-SCIENTIFIC AIDE [address] [facility] [address] [place] [address] PCP - General Nurse Practitioner Family 10/21/22 José Luis Mohan MD Electrophysiology 04/16/14
--- OUTSIDE RECORDS SUMMARY | 2024-10-15 13:17 | XMS_ITS | Encounter Summary ---
Author Organization [facility] Address [address] [place] [address] Care Team Providers Care Electro Mechanical Solar Technician Name Role Phone Cyril Uribe MD Primary Care Provider [phone] José Luis Mohan MD Unavailable [phone] Shanice Barahona MD Primary Care Provider [phone] Paulina Prasad DO Primary Care Provider [phone] Eve Harris TREE CHIPPER-COMIC WRITER Primary Care Provider Reason for Visit * Reason Onset Date Comments Appointment 01/23/2013 Infomed patient I spoke with the [facility] Heart dept and they would be getting in contact with her about a maternal echo appt Encounter Details Date Type Department Care Team (Late st Contact Info) Description 01/29/2013 Telephone [facility] Health Maternal & Care [address] [place] [address] Kandice Fitzpatrick, [facility] Care [place] [address] [place] [address] Appointment ( Infomed patient I spoke with the [facility] Heart dept and they would be getting in contact with her about a maternal echo appt) Social History Tobacco Use Types Packs/Day Years Used Date Smoking Tobacco: Former Cigarettes Q uit: 12/19/2010 Alcohol Use Standard Drinks/Week Comments No 0 (1 standard drink = 0.6 oz pur e alcohol) Comments Yes Sex and Gender Information Value Date Recorded Sex Assigned at Female 01/05/2023 1:24 PM QUALITY ASSURANCE Legal Sex Female 9:24 AM CDT Gender Identity Female 01/05/2023 1:24 PM QUALITY ASSURANCE Sexual Orientation Straight 01/05/2023 1: 24 PM QUALITY ASSURANCE documented as of this encounter Plan of Treatment Upcoming Encounters Date Type Department Care Team (Late st Contact Info) Description 11/19/2024 9:00 AM CDT Office Visit [facility] - Neurology [address] [place] [address], [place] [address] Dieter Sena, DO [address] [place] [address] [address] [place] [phone] 12/20/2024 10:30 AM CDT Procedure visit [facility] - Neurology [address] [place] [phone] Cindy Negron, TREE CHIPPER-COMIC WRITER [address] [place] [address] [address] [place] [address] documented as of this encounter Visit Diagnoses Not on filedocumented in this encounter Care Teams Electro Mechanical Solar Technician Relationship Specialty Start Date End Date Cyril Uribe MD [address] [place] [phone] PCP - General Internal Medicine 02/29/12 01/12/15 Shanice Barahona MD [address] [place] [address] [place] [phone] PCP - General Family Medicine 01/13/15 05/22/18 Paulina Prasad DO [address] [place] [address] PCP - General 05/03/22 08/31/22 Eve Harris, TREE CHIPPER-COMIC WRITER [address] [address] PCP - General Nurse Practitioner Family 10/21/22 José Luis Mohan MD [address] [place] [address] Electrophysiology 04/16/14 documented as of this encounter
--- OUTSIDE RECORDS SUMMARY | 2024-10-15 13:17 | XMS_ITS | Encounter Summary ---
Author Organization [facility] Address [address] [facility] [place] [address] Care Team Providers Care Rotary Rock Drilling Machine Operator Name Role Phone Cyril Uribe MD Primary Care Provider [phone] José Luis Mohan MD Unavailable Shanice Barahona MD Primary Care Provider [phone] Paulina Prasad DO Primary Care Provider [phone] Eve Harris TELEMEDICINE PHYSICIAN-BRANCH MANAGER TRAINEE Primary Care Provider Encounter Details Date Type Department Care Team (Late st Contact Info) Description 01/30/2013 Telephone [facility] Health Maternal & Care [address] [place] [address] Kandice Fitzpatrick, [facility] Care [place] [address] [place] [address] Social History Tobacco Use Types Packs/Day Years Used Date Smoking Tobacco: Former Cigarettes Q uit: 12/19/2010 Alcohol Use Standard Drinks/Week Comments No 0 (1 standard drink = 0.6 oz pur e alcohol) Comments Yes Sex and Gender Information Value Date Recorded Sex Assigned at Female 01/05/2023 1:24 PM RESOURCE DEVELOPMENT MANAGER Legal Sex Female 9:24 AM CDT Gender Identity Female 01/05/2023 1:24 PM RESOURCE DEVELOPMENT MANAGER Sexual Orientation Straight 01/05/2023 1: 24 PM RESOURCE DEVELOPMENT MANAGER documented as of this encounter Plan of Treatment Upcoming Encounters Date Type Department Care Team (Late st Contact Info) Description 11/19/2024 9:00 AM CDT [facility] [address] [place] [address], [place] [address] Dieter Sena DO [address] [place] [address] [address] [place] [address] 12/20/2024 10:30 AM CDT Procedure [facility] [address] [place] [address], [place] [address] Cindy Negron, TELEMEDICINE PHYSICIAN-BRANCH MANAGER TRAINEE [address] [place] [address] [address] [place] [address] documented as of this encounter Visit Diagnoses Not on filedocumented in this encounter Care Teams Rotary Rock Drilling Machine Operator Relationship Specialty Start Date End Date Cyril Uribe MD [address] [place] [phone] PCP - General Internal Medicine 02/29/12 01/12/15 Shanice Barahona MD [address] [place] [address] [place] [phone] PCP - General Family Medicine 01/13/15 05/22/18 Paulina Prasad DO [address] [place] [address] PCP - General 05/03/22 08/31/22 Eve Harris, TELEMEDICINE PHYSICIAN-BRANCH MANAGER TRAINEE [address] [address] PCP - General Nurse Practitioner Family 10/21/22 José Luis Mohan MD [address] [place] [address] Electrophysiology 04/16/14 documented as of this encounter
--- OUTSIDE RECORDS SUMMARY | 2024-10-15 13:17 | XMS_ITS | Encounter Summary ---
Author Organization [facility] Address [address] [facility] [place] [address] Care Team Providers Care Reserve Operator Name Role Phone José Luis Mohan MD Unavailable [phone] Eve Harris APRN-HEARING IMPAIRED TEACHER Primary Care Provider Encounter Details Date Type Department Care Team (Late st Contact Info) Description 01/31/2023 Telephone [facility] - Dermatology [address] [place] [address], [facility] [place] [address] Marylu Mccauley MD [address] [place] [address] [place] [address] Social History Tobacco Use Types Packs/Day Years Used Date Smoking Tobacco: Former Cigarettes Q uit: 12/19/2010 Alcohol Use Standard Drinks/Week Comments No 0 (1 standard drink = 0.6 oz pur e alcohol) PHQ-2 Answer Date Recorded Patient Health Questionnaire-2 Score 2 12/06/2022 Comments No Sex and Gender Information Value Date Recorded Sex Assigned at Female 01/05/2023 1:24 PM SOFTWARE WRITER Legal Sex Female 9:24 AM CDT Gender Identity Female 01/05/2023 1:24 PM SOFTWARE WRITER Sexual Orientation Straight 01/05/2023 1: 24 PM SOFTWARE WRITER documented as of this encounter Miscellaneous Notes * Telephone Encounter - Madelyn Severino - 01/31/2023 8:58 AM CST Patient called stating she spoke to Dr Mccauley and was told she would be added to the schedule forthis afternoon. Patient is calling to confirm what time she should come in. WARE WRITER documented in this encounter Plan of Treatment Upcoming Encounters Date Type Department Care Team (Late st Contact Info) Description 11/19/2024 9:00 AM CDT [facility] [address] [place] [address], [place] [address] Dieter Sena, DO [address] [place] [address] [address] [place] [phone] 12/20/2024 10:30 AM CDT Procedure visit [facility] - Neurology [address] [place] [address], [place] [address] Cindy Negron, SAFETY TEACHER-HEARING IMPAIRED TEACHER [address] [place] [address] [address] [place] [address] documented as of this encounter Visit Diagnoses Not on filedocumented in this encounter Care Teams Reserve Operator Relationship Specialty Start Date End Date Eve Harris, SAFETY TEACHER-HEARING IMPAIRED TEACHER [address] [address] PCP - General Nurse Practitioner Family 10/21/22 José Luis Mohan MD Electrophysiology 04/16/14 documented as of this encounter
--- OUTSIDE RECORDS SUMMARY | 2024-10-15 13:17 | XMS_ITS | Encounter Summary ---
Author Organization [facility] Address [address] [facility] [place] [address] Care Team Providers Care Associate Professor Of Education Name Role Phone Cyril Uribe MD Primary Care Provider [phone] José Luis Mohan MD Unavailable [phone] Shanice Barahona MD Primary Care Provider [phone] Paulina Prasad DO Primary Care Provider [phone] Eve Harris TILE SETTER SUPERVISOR-HAND TIER Primary Care Provider Reason for Visit * Reason Onset Date Comments Reschedule Appointment 01/01/2013 left mess age for her to call back; cancelled appt for 01/02/2013-per Dr Lee. Patient spoke with Magdalena Godwin about test results Encounter Details Date Type Department Care Team (Late st Contact Info) Description 01/01/2013 Telephone [facility] Women's Health Maternal & Care [address] [place] [id number] Kandice Fitzpatrick, [facility] [address] [place] [id number] Reschedule Appointment (left message for her to call back; cancelled appt for 01/02/2013-per Dr Lee. Patient spoke with Magdalena Godwin about test results) Social History Tobacco Use Types Packs/Day Years Used Date Smoking Tobacco: Former Cigarettes Q uit: 12/19/2010 Alcohol Use Standard Drinks/Week Comments No 0 (1 standard drink = 0.6 oz pur e alcohol) Comments Yes Sex and Gender Information Value Date Recorded Sex Assigned at Female 01/05/2023 1:24 PM WEB MARKETING COORDINATOR Legal Sex Female 9:24 AM CDT Gender Identity Female 01/05/2023 1:24 PM WEB MARKETING COORDINATOR Sexual Orientation Straight 01/05/2023 1: 24 PM WEB MARKETING COORDINATOR documented as of this encounter Plan of Treatment Upcoming Encounters Date Type Department Care Team (Late st Contact Info) Description 11/19/2024 9:00 AM CDT Office Visit [facility] - Neurology [address] [place] [address], [place] [phone] Dieter Sena DO [address] [facility] [address] [place] [address] 12/20/2024 10:30 AM CDT Procedure visit [facility] - Neurology [address] [place] [phone] Cindy Negron, TILE SETTER SUPERVISOR-HAND TIER [address] [place] [address] [address] [place] [phone] documented as of this encounter Visit Diagnoses Not on filedocumented in this encounter Care Teams Associate Professor Of Education Relationship Specialty Start Date End Date Cyril Uribe MD [address] [place] [phone] PCP - General Internal Medicine 02/29/12 01/12/15 Shanice Barahona MD [address] [place] [address] [place] [id number] PCP - General Family Medicine 01/13/15 05/22/18 Paulina Prasad DO [address] [place] [id number] PCP - General 05/03/22 08/31/22 Eve Harris, TILE SETTER SUPERVISOR-HAND TIER [id number] [address] PCP - General Nurse Practitioner Family 10/21/22 José Luis Mohan MD [address] [place] [phone] Electrophysiology 04/16/14 documented as of this encounter
--- NOTE | 2024-10-15 13:20 | ED_ITS ---
HPI - Ear Problem General Chief complaint: Ear Stated complaint: RT Ear Pain Time Seen by Provider: 10/15/24 13:11 Source: patient and RN notes reviewed Mode of arrival: ambulatory Limitations: no limitations History of Present Illness HPI Narrative: Patient presents today with right ear pain and fullness since yesterday. No muffled hearing. No additional URI symptoms to include cough, congestion, rhinorrhea, sore throat, fever. Currently rates her pain 6/10 and has been taking Tylenol and ibuprofen without much relief. Related Data Home Medications ?Medication ?Instructions ?Recorded ?Confirmed ?Last Taken ?Type hydroxychloroquine 200 mg tablet 100 mg PO BID 06/10/22 08/01/24 Unknown History beclomethasone dipropionate 80 inhalation 08/03/22 08/01/24 Unknown History mcg/actuation HFA breath activated aerosol (Qvar RediHaler) prazosin 1 mg capsule 1 mg PO HS 08/03/22 08/01/24 Unknown History ufdqecszqr-cifpvczflsmav-epvzyion 1 cap PO Q6H PRN 12/14/22 01/23/24 Unknown History 50 mg-325 mg-40 mg capsule prochlorperazine maleate 5 mg 5 mg PO Q8H PRN 12/14/22 08/01/24 Unknown History tablet atomoxetine 100 mg capsule 100 mg PO DAILY 01/23/24 08/01/24 Unknown History (Strattera) bupropion HCl 300 mg 24 hr tablet, 300 mg PO QAM 01/23/24 08/01/24 Unknown History extended release (Wellbutrin XL) buspirone 10 mg tablet 10 mg PO TID 01/23/24 08/01/24 Unknown History erenumab-aooe 70 mg/mL 70 mg subcut MONTHLY 08/01/24 08/01/24 Unknown History subcutaneous auto-injector (Aimovig Autoinjector) onabotulinumtoxinA 100 unit 5 unit IM ONCE 08/01/24 08/01/24 Unknown History solution for injection (Botox) quetiapine 50 mg tablet 50 mg PO QHS 08/01/24 08/01/24 Unknown History rimegepant 75 mg disintegrating 75 mg PO ONCE PRN 08/01/24 08/01/24 Unknown History tablet (Nurtec ODT) Allergies Allergy/AdvReac Type Severity Reaction Status Date / Time codeine Allergy Severe Anaphylactic Verified 10/15/24 12:45 Shock doxycycline AdvReac Intermediate Nausea and Verified 10/15/24 12:52 Vomiting PMFSH Past Medical History Medical History Suburethral sling present Connective tissue disease Screen for STD (sexually transmitted disease) Vaginal discharge HSV-2 infection HSV-1 infection Screening mammogram, encounter for Encounter for screening examination for sexually transmitted disease Brain tumor Seizure Asthma Colitis SVT (supraventricular tachycardia) Chlamydia 2006 Abnormal Pap smear of cervix 1999 ASCUS - NO F/U NEEDED PER PT - cx bx wnl per pt sj Surgical History Surgical History History of cholecystectomy History of colposcopy with cervical biopsy 1999 normal History of colonoscopy with polypectomy 06-02-2018 Multiple polyps, repeat in 2021 History of salpingectomy 07/03/20 H/O: hysterectomy 01/08/21 RA [facility] Family History Family History Father Carcinoma of colon Mother Thyroid cancer Grandparent Diabetes mellitus maternal grandmother Social History Social History Smoking status: Light tobacco smoker Tobacco type: e-cigarettes/vaping Smoking end date: 03/28/16 Alcohol intake: never Substance use: current Substance use type: marijuana Other substance usage details: 3 x week Lack of Transportation: No Lack of Food: Never True Current Housing: I Have Housing Concerned About Future Housing: No Difficulty Paying Gas/Electric Bills: No Difficulty Paying for Meds: No Currently Unemployed: No Education: Trade/Vocational Certificate Difficulty w/ Childcare or Family Care: No Living arrangements: other Additional living arrangements comments: Occupation/Education: unemployed 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 Please see nursing chart for further information. There is no relevant family history pertinent to the presenting complaint Exam Narrative: GENERAL: Well-appearing, well-nourished, and in no acute distress. HEAD: Normocephalic, atraumatic. EYES: EOMI. No redness or drainage. Conjunctivae normal. ENT: Mucous membranes pink and moist. Nares clear. No rhinorrhea. TMs normal bilaterally. Right ear canal is very mildly erythematous and painful with otoscope insertion. No edema or drainage. NECK: Normal AROM. Supple. No lymphadenopathy. CHEST: No respiratory distress. EXTREMITIES: Normal range of motion. No edema. SKIN: Warm, dry, no rash. Capillary refill normal. Normal skin turgor. NEURO: No focal deficits. Alert and oriented x3. Gait steady. PSYCH: Normal affect. No signs of depression or anxiety. Course Course Level of Care: Express Care Visit Vital Signs Vital signs: Vital Signs Temperature 97.7 F 10/15/24 12:40 Pulse Rate 95 10/15/24 12:40 Respiratory Rate 18 10/15/24 12:40 Blood Pressure 115/55 L 10/15/24 12:40 Pulse Oximetry 100 10/15/24 12:40 Oxygen Delivery Room Air 10/15/24 12:40 Temperature 97.7 F 10/15/24 12:40 Pulse Rate 95 10/15/24 12:40 Respiratory Rate 18 10/15/24 12:40 Blood Pressure 115/55 L 10/15/24 12:40 Pulse Oximetry 100 10/15/24 12:40 Oxygen Delivery Room Air 10/15/24 12:40 Reviewed Medical Decision Making MDM Narrative Medical decision making narrative: 44-year-old female patient presents today with right ear pain and fullness since yesterday. No URI symptoms. She has been taking jeso-gkt-fsakroe medication without improvement. Upon exam, left ear normal. Right ear within normal TM and mildly erythematous canal. Patient has pain in the canal with otoscope insertion. Will treat for otitis externa with Ciprodex. Vital signs stable. Anticipatory guidance given. Differential Diagnosis Differential Diagnosis: Otitis media, otitis externa, ruptured TM, serous otitis, cerumen impaction Vital Signs Vital Signs: Vital Signs Temperature 97.7 F 10/15/24 12:40 Pulse Rate 95 10/15/24 12:40 Respiratory Rate 18 10/15/24 12:40 Blood Pressure 115/55 L 10/15/24 12:40 Pulse Oximetry 100 10/15/24 12:40 Oxygen Delivery Room Air 10/15/24 12:40 Temperature 97.7 F 10/15/24 12:40 Pulse Rate 95 10/15/24 12:40 Respiratory Rate 18 10/15/24 12:40 Blood Pressure 115/55 L 10/15/24 12:40 Pulse Oximetry 100 10/15/24 12:40 Oxygen Delivery Room Air 10/15/24 12:40 Critical Care Time Critical Care Time Critical Care Time: No Discharge Plan Discharge Clinical Impression: Otitis externa of right ear Qualifiers: Otitis externa type: unspecified type Chronicity: acute Qualified Code(s): H60.501 - Unspecified acute noninfective otitis externa, right ear Patient Disposition: Home Condition: Stable Instructions: Swimmer's Ear (GEN) Additional Instructions: You have been diagnosed with an infection in your ear canal. Please use the ear drops as directed. Keep the ears dry as possible. Do not submerge your head in standing water such as pools, hot tubs, lakes, bathtubs, until the infection has resolved. Showering is fine. Do not use anything in the ear that can be irritating such as Q-tips, ear plugs, ear buds. Take Tylenol or ibuprofen for pain, if able. Follow-up with your PCP in 3 days if symptoms are not improving. As discussed, if your symptoms worsen to include fever greater than 100.3, redness or swelling behind the ear, please go to the ER for further evaluation. Patient Language: Dutch Prescriptions: New ciprofloxacin-dexamethasone 0.3-0.1 % drops,suspension 4 drp RIGHT EAR Q12H 7 Days Qty: 7.5 0RF No Action prazosin 1 mg capsule 1 mg PO HS Qvar RediHaler 80 mcg/actuation HFA aerosol breath activated INHALATION bupropion HCl [Wellbutrin XL] 300 mg tablet extended release 24 hr 300 mg PO QAM buspirone 10 mg tablet 10 mg PO TID atomoxetine [Strattera] 100 mg capsule 100 mg PO DAILY qbxtnxgvls-dkgzdtdppnbld-lbpw 50-325-40 mg capsule 1 cap PO Q6H PRN prochlorperazine maleate 5 mg tablet 5 mg PO Q8H PRN hydroxychloroquine 200 mg tablet 100 mg PO BID quetiapine 50 mg tablet 50 mg PO QHS Nurtec ODT 75 mg tablet,disintegrating 75 mg PO ONCE PRN Rx Instructions: as a single dose Aimovig Autoinjector 70 mg/mL auto-injector 70 mg subcut MONTHLY Botox 100 unit recon soln 5 unit IM ONCE Rx Instructions: as a single dose montelukast 10 mg tablet See Rx Instructions .ROUTE .COMPLEX Qty: 90 1RF Dose Instruction: TAKE 1 TABLET BY MOUTH DAILY Rx Instructions: TAKE 1 TABLET BY MOUTH DAILY fluticasone propionate 50 mcg/actuation spray,suspension See Rx Instructions .ROUTE .COMPLEX Qty: 32 0RF Dose Instruction: SHAKE LIQUID AND USE 2 SPRAYS IN EACH NOSTRIL DAILY Rx Instructions: SHAKE LIQUID AND USE 2 SPRAYS IN EACH NOSTRIL DAILY albuterol sulfate 90 mcg/actuation HFA aerosol inhaler See Rx Instructions .ROUTE .COMPLEX Qty: 18 0RF Dose Instruction: INHALE 1 PUFF BY MOUTH EVERY 4 HOURS NEEDED FOR BRONCHOSPASM Rx Instructions: INHALE 1 PUFF BY MOUTH EVERY 4 HOURS NEEDED FOR BRONCHOSPASM fluconazole [Diflucan] 200 mg tablet 200 mg PO DAILY Qty: 2 1RF Follow-up/Referrals: Kimberly,Eve Mayes APRN [Primary Care Provider] - Time of Disposition: 13:20
== END 2024-10-15 13:23 | disposition home or self-care (01) ==
PROVIDERS: Emergency Provider Nurse Practitioner; PCP Nurse Practitioner Family
DX: H60.501 Unspecified acute noninfective otitis externa, right ear (principal); J45.909 Unspecified asthma, uncomplicated
CPT/HCPCS: 99213; G0463

== ENCOUNTER 2024-12-11 18:52 | Emergency (ER) | payer OTHER, SELFPAY ==
--- NOTE | 2024-12-11 18:55 | ED.DENTAL ---
HPI - Dental/Oral General Chief complaint: Dental/Oral Stated complaint: Dental Time Seen by Provider: 12/11/24 18:58 Source: patient, RN notes reviewed and old records reviewed Mode of arrival: ambulatory Limitations: no limitations History of Present Illness HPI Narrative: 44-year-old female presents to the [facility] with left lower dental pain and low back and upper back pain. Patient states that 2 weeks ago at [facility] she had a filling done to the left lower molar. Has had pain and discomfort since. States that she tried calling the dental clinic and has an appointment in 2 weeks. Has been using peroxide and salt water gargles as well as Tylenol a Motrin. No erythema or swelling noted. Patient also reports right low back pain. Denies any loss retention of bowel or bladder. No injury. No rashes. No erythema or ecchymosis. Walks with a normal gait. No midline tenderness. Related Data Home Medications ?Medication ?Instructions ?Recorded ?Confirmed ?Last Taken ?Type hydroxychloroquine 200 mg tablet 100 mg PO BID 06/10/22 08/01/24 Unknown History beclomethasone dipropionate 80 inhalation 08/03/22 08/01/24 Unknown History mcg/actuation HFA breath activated aerosol (Qvar RediHaler) prazosin 1 mg capsule 1 mg PO HS 08/03/22 08/01/24 Unknown History nfatoppgci-jjgnwgyaczaot-jabpbyce 1 cap PO Q6H PRN 12/14/22 01/23/24 Unknown History 50 mg-325 mg-40 mg capsule prochlorperazine maleate 5 mg 5 mg PO Q8H PRN 12/14/22 08/01/24 Unknown History tablet atomoxetine 100 mg capsule 100 mg PO DAILY 01/23/24 08/01/24 Unknown History (Strattera) bupropion HCl 300 mg 24 hr tablet, 300 mg PO QAM 01/23/24 08/01/24 Unknown History extended release (Wellbutrin XL) buspirone 10 mg tablet 10 mg PO TID 01/23/24 08/01/24 Unknown History erenumab-aooe 70 mg/mL 70 mg subcut MONTHLY 08/01/24 08/01/24 Unknown History subcutaneous auto-injector (Aimovig Autoinjector) onabotulinumtoxinA 100 unit 5 unit IM ONCE 08/01/24 08/01/24 Unknown History solution for injection (Botox) quetiapine 50 mg tablet 50 mg PO QHS 08/01/24 08/01/24 Unknown History rimegepant 75 mg disintegrating 75 mg PO ONCE PRN 08/01/24 08/01/24 Unknown History tablet (Nurtec ODT) Allergies Allergy/AdvReac Type Severity Reaction Status Date / Time codeine Allergy Severe Anaphylactic Verified 12/11/24 18:56 Shock doxycycline AdvReac Intermediate Nausea and Verified 12/11/24 18:56 Vomiting Review of Systems Review of Systems: All systems reviewed & are unremarkable except as noted in HPI and below Constitutional: Constitutional: Reports no additional constitutional complaints ENT: Reports as per HPI Cardiovascular: Cardiovascular: Reports no additional cardiovascular complaints, Denies chest pain and Denies dyspnea Respiratory: Respiratory: Reports no additional respiratory complaints, Denies chest congestion, Denies cough and Denies dyspnea Musculoskeletal: Musculoskeletal: Reports as per HPI Integumentary/Breasts: Skin/Breast: Reports system reviewed and no additional complaints, except as docu PMFSH Past Medical History Medical History Suburethral sling present Connective tissue disease Screen for STD (sexually transmitted disease) Vaginal discharge HSV-2 infection HSV-1 infection Screening mammogram, encounter for Encounter for screening examination for sexually transmitted disease Brain tumor Seizure Asthma Colitis SVT (supraventricular tachycardia) Chlamydia 2006 Abnormal Pap smear of cervix 1999 ASCUS - NO F/U NEEDED PER PT - cx bx wnl per pt sj Surgical History Surgical History History of cholecystectomy History of colposcopy with cervical biopsy 1999 normal History of colonoscopy with polypectomy 06-02-2018 Multiple polyps, repeat in 2021 History of salpingectomy 07/03/20 H/O: hysterectomy 01/08/21 [facility] Family History Family History Father Carcinoma of colon Mother Thyroid cancer Grandparent Diabetes mellitus maternal grandmother Social History Social History Smoking status: Light tobacco smoker Tobacco type: e-cigarettes/vaping Smoking end date: 03/28/16 Alcohol intake: never Substance use: current Substance use type: marijuana Other substance usage details: 3 x week Lack of Transportation: No Lack of Food: Never True Current Housing: I Have Housing Concerned About Future Housing: No Difficulty Paying Gas/Electric Bills: No Difficulty Paying for Meds: No Currently Unemployed: No Education: Trade/Vocational Certificate Difficulty w/ Childcare or Family Care: No Living arrangements: other Additional living arrangements comments: Occupation/Education: unemployed 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 There is no relevant family history pertinent to the patient complaint. Exam Const: General: cooperative, healthy appearing, comfortable, no acute distress, well developed, alert and well nourished Nutritional Appearance: well nourished Orientation/consciousness: patient oriented x3 Limitations: no limitations HENMT: Head: normal to inspection Ears: hearing grossly normal bilaterally, external ears normal, TM's normal bilaterally, EAC's normal, mastoids normal and no periauricular adenopathy Mouth: Yes Normal oral and palatal mucosa present, Yes lip normal, Yes tongue normal and Yes moist mucous membranes Teeth image:  1. Reports discomfort, dental restorations noted. No erythema, ecchymosis, swelling noted Eyes: General: appearance normal, both eyes and all related structures Alignment and Position: alignment normal Neck: Neck: normal visual inspection, full ROM, no lymphadenopathy and no meningeal signs Chest: Chest palpation & inspection: normal inspection of the chest Resp: Effort & Inspection: normal respiratory effort and able to speak in complete sentences Auscultation: clear to auscultation bilaterally, no crackles, no rales, no rhonchi and no wheezes Cardio: Rate: regular rate GI: GI Palp: No abdominal tenderness Back/Spine/Pelvis: Back: No sacral edema, No ecchymosis and back tenderness (Right lower, right upper reports spasming) Skin: General skin exam: normal color and no rashes or lesions noted Neuro: General: patient oriented x3, gait normal, moves all extremities and no meningeal signs Cognition (Neuro): normal cognition Speech: normal speech Gait exam (Neuro): Normal gait present Extrem: General: normal to inspection, full ROM, capillary refill normal and normal gait Psych: Appearance: grossly normal and well kempt Mental Status: mental status grossly normal Speech and movement: Normal speech and movement present and Clear speech present Affect: normal affect Attitude: cooperative Course Course Level of Care: Express Care Visit Vital Signs Vital signs: Vital Signs Temperature 98.5 F 12/11/24 19:00 Pulse Rate 99 12/11/24 19:00 Respiratory Rate 18 12/11/24 19:00 Blood Pressure 112/68 12/11/24 19:00 Pulse Oximetry 100 12/11/24 19:00 Oxygen Delivery Room Air 12/11/24 19:00 Temperature 98.5 F 12/11/24 19:00 Pulse Rate 99 12/11/24 19:00 Respiratory Rate 18 12/11/24 19:00 Blood Pressure 112/68 12/11/24 19:00 Pulse Oximetry 100 12/11/24 19:00 Oxygen Delivery Room Air 12/11/24 19:00 Reviewed MDM - Dental/Oral MDM Narrative Medical decision making narrative: Patient sitting in exam room. Patient is nontoxic, vitals are stable. Patient presents with 2 complaints 1st is dental pain post procedure. Will cover with antibiotic encourage patient to call dental clinic in the morning. Patient also with back pain unsure of exact timeline, patient's exam consistent with muscle strain or sprain. Patient is appropriate for outpatient treatment with muscle relaxer Discharge instructions reviewed with patient, as well as provided in writing per nursing staff. The instructions also include specific and strict return/GO TO THE ER as well as f/u information. All questions have been answered, and the patient deny any further questions with discharge and discharge plan. Some parts of this dictation were generated by voice recognition software and may contain typographical and/or grammatical inaccuracies. Differential Diagnosis Differential diagnosis: Likely gingival abscess, dental caries, toothache, dental abscess and other Critical Care Time Critical Care Time Critical Care Time: No Discharge Plan Discharge Clinical Impression: Pain, dental, Back pain Patient Disposition: Home Condition: Stable Instructions: Antibiotic Form, Muscle Spasm (ED), Toothache (ED), Back Pain (ED) Additional Instructions: Finish the entire course of antibiotics Be sure to brush her teeth and using good mouthwash twice After every time you eat be sure to use salt water rinses. Apply ice to face to help with pain. Take Tylenol alternating with Motrin as needed for pain. You can alternate every 4 hours Call your dental provider at [facility] in the morning for further evaluation, testing and treatment Follow up with a Primary Care Provider (PCP) about medical needs. A PCP can help keep you healthy by preventive medicine and screening. Go to the ER for New or worsening symptoms. Take ibuprofen as directed to decrease inflammation and to help pain. Take Baclofen (muscle relaxer) as directed. Do not drink, drive, operate machinery, or do anything dangerous while taking this medication Exercise:Combine aerobic exercise, like walking or swimming, with specific exercises to keep the muscles in your back and abdomen strong and flexible. Proper Lifting:Be sure to lift heavy items with your legs, not your back. Do not bend over to pick something up. Keep your back straight and bend at your knees. Weight:Maintain a healthy weight. Being overweight puts added stress on your lower back. Avoid Smoking:Both the smoke and the nicotine cause your spine to age faster than normal. Proper Posture:Good posture is important for avoiding future problems. A therapist can teach you how to safely stand, sit, and lift. Use warm moist heat to help with pain. Using topical such as Biofreeze, Jt-Swanson or Aspercreme can also help Follow up with Primary provider in 2-3 days, This may become a chronic condition and they will be the one to help manage your pain and order additional testing. Go to the nearest ER if you develop problems with bladder/bowel function, weakness or loss of feeling in one or both of your legs. Patient Language: Uzbek Prescriptions: New baclofen 10 mg tablet 10 mg PO TID PRN (Reason: muscle pain) Qty: 10 0RF penicillin V potassium 500 mg tablet 500 mg PO TID 7 Days Qty: 21 0RF No Action prazosin 1 mg capsule 1 mg PO HS Qvar RediHaler 80 mcg/actuation HFA aerosol breath activated INHALATION ciprofloxacin-dexamethasone 0.3-0.1 % drops,suspension 4 drp RIGHT EAR Q12H 7 Days Qty: 7.5 0RF bupropion HCl [Wellbutrin XL] 300 mg tablet extended release 24 hr 300 mg PO QAM buspirone 10 mg tablet 10 mg PO TID atomoxetine [Strattera] 100 mg capsule 100 mg PO DAILY gaxozatfhz-ywjextgguseii-twhw 50-325-40 mg capsule 1 cap PO Q6H PRN prochlorperazine maleate 5 mg tablet 5 mg PO Q8H PRN hydroxychloroquine 200 mg tablet 100 mg PO BID quetiapine 50 mg tablet 50 mg PO QHS Nurtec ODT 75 mg tablet,disintegrating 75 mg PO ONCE PRN Rx Instructions: as a single dose Aimovig Autoinjector 70 mg/mL auto-injector 70 mg subcut MONTHLY Botox 100 unit recon soln 5 unit IM ONCE Rx Instructions: as a single dose montelukast 10 mg tablet See Rx Instructions .ROUTE .COMPLEX Qty: 90 1RF Dose Instruction: TAKE 1 TABLET BY MOUTH DAILY Rx Instructions: TAKE 1 TABLET BY MOUTH DAILY fluticasone propionate 50 mcg/actuation spray,suspension See Rx Instructions .ROUTE .COMPLEX Qty: 32 0RF Dose Instruction: SHAKE LIQUID AND USE 2 SPRAYS IN EACH NOSTRIL DAILY Rx Instructions: SHAKE LIQUID AND USE 2 SPRAYS IN EACH NOSTRIL DAILY albuterol sulfate 90 mcg/actuation HFA aerosol inhaler See Rx Instructions .ROUTE .COMPLEX Qty: 18 0RF Dose Instruction: INHALE 1 PUFF BY MOUTH EVERY 4 HOURS NEEDED FOR BRONCHOSPASM Rx Instructions: INHALE 1 PUFF BY MOUTH EVERY 4 HOURS NEEDED FOR BRONCHOSPASM fluconazole [Diflucan] 200 mg tablet 200 mg PO DAILY Qty: 2 1RF Follow-up/Referrals: Kimberly,Eve Mayes, MEDIA PROFESSIONAL [Primary Care Provider, Family Practice] - 1 Week Stand Alone Forms: Work/School Release IP Time of Disposition: 19:14
--- OUTSIDE RECORDS SUMMARY | 2024-12-11 18:57 | XMS_ITS | Encounter Summary ---
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 Name Role Phone Cyril Uribe MD Primary Care Provider José Luis Mohan MD Unavailable Shanice Barahona MD Primary Care Provider Paulina Prasad DO Primary Care Provider [phone] Eve Harris INBOUND CALL CENTER REPRESENTATIVE-FLANGING OPERATOR Primary Care Provider Encounter Details Date Type Department Care Team (Late st Contact Info) Description 01/30/2013 Telephone [facility] [address] [place] [id number] Kandice Fitzpatrick, [facility] [place] [address] [place] [address] Social History Tobacco Use Types Packs/Day Years Used Date Smoking Tobacco: Former Cigarettes Q uit: 12/19/2010 Alcohol Use Standard Drinks/Week Comments No 0 (1 standard drink = 0.6 oz pur e alcohol) Comments Yes Sex and Gender Information Value Date Recorded Sex Assigned at Female 01/05/2023 1:24 PM CORPORATE TRAVEL MANAGER Legal Sex Female 9:24 AM CDT Gender Identity Female 01/05/2023 1:24 PM CORPORATE TRAVEL MANAGER Sexual Orientation Straight 01/05/2023 1: 24 PM CORPORATE TRAVEL MANAGER documented as of this encounter Plan of Treatment Upcoming Encounters Date Type Department Care Team (Late st Contact Info) Description 12/20/2024 10:30 AM CDT Procedure visit [facility] - Neurology [address] [facility] [place] [id number] Cindy Negron, INBOUND CALL CENTER REPRESENTATIVE-FLANGING OPERATOR [address] [facility] [address] [place] [id number] documented as of this encounter Visit Diagnoses Not on filedocumented in this encounter Care Teams Water Pumping Station Engineer Relationship Specialty Start Date End Date Cyril Uribe MD [address] [place] [address] PCP - General Internal Medicine 02/29/12 01/12/15 Shanice Barahona MD [address] [place] [address] [place], [place] [id number] PCP - General Family Medicine 01/13/15 05/22/18 Paulina Prasad DO [address] [place] [address] PCP - General 05/03/22 08/31/22 Eve Harris, INBOUND CALL CENTER REPRESENTATIVE-FLANGING OPERATOR [id number] [address] PCP - General Nurse Practitioner Family 10/21/22 José Luis Mohan MD [address] [place] [address] Electrophysiology 04/16/14 documented as of this encounter
--- OUTSIDE RECORDS SUMMARY | 2024-12-11 18:57 | XMS_ITS | Patient Health Record ---
Author Organization [facility] Address [address] [place] [address] Care Team Providers Care Barrel Painter Name Role Phone GreenKarli Primary Care Provider [...] days Active Vitamin D (Ergocalciferol) 1.25 MG (57002 UT) 1 capsule Oral once a week; [...] Once a day; Duration: 30 days Active GaviLyte-G 236 GM Oral; Duration: 1 [...] W/U Status Risk Notes Problem Tobacco user (978934051) Nicotine dependence, unspecified, uncomplicated (F17.200) Active confirmed Problem Posttraumatic stress disorder (86041722) PTSD (post-traumatic stress disorder) (F43.10) Active confirmed Problem Attention deficit hyperactivity disorder (564360105) ADHD (attention deficit hyperactivity disorder) (F90.9) Active confirmed Problem Generalized anxiety disorder (30482280) АНДРЕЙ (generalized anxiety disorder) (F41.1) Active confirmed Problem Dissociative disorder (72254947) 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1 ; PTSD (post-traumatic stress disorder) F43.10 ; ADHD (attention deficit hyperactivity disorder) F90.9 and Nicotine dependence, unspecified, uncomplicated F17.200 [address] [address] [place] [address] 05/29/2024 Karli Green Bipolar 2 disorder F31.81 ; ADHD (attention deficit hyperactivity disorder) F90.9 ; АНДРЕЙ (generalized anxiety disorder) F41.1 and PTSD (post-traumatic stress disorder) F43.[address] [place] [address] 07/06/2024 Karli Green Bipolar 2 disorder F31.81 ; PTSD (post-traumatic stress disorder) F43.10 and АНДРЕЙ (generalized anxiety disorder) F41.1 [address] [address] [place] [address] 09/25/2024 Karli Green Bipolar 2 disorder F31.81 ; АНДРЕЙ (generalized anxiety disorder) F41.1 ; PTSD (post-traumatic stress disorder) F43.10 and ADHD (attention deficit hyperactivity disorder) F90.[address] [place] [address] 12/16/2023 Karli Green Moderate episode of recurrent major depressive disorder F33.1 [address] [address] [place] [address] 03/07/2024 Karli Green [address] [address] [place] [address] 03/12/2024 Karli Green [address] [address] 03/20/2024 Karli Green [address] [place] [address] 03/23/2024 Karli Green [address] [place] [address] 05/21/2024 Karli Green [address] [address] [place] [address] 06/27/2024 Karli Green [facility] [address] [address] 07/09/2024 Karli Grene [facility] [address] [address] 09/10/2024 Karli Green Bipolar 2 disorder F31.81 Assessments Encounter Date Diagnosis (ICD Code) Assessment Notes Treatment Notes Treatment Clinical Notes Section Notes 12/16/2023 Moderate episode of recurrent major depressive disorder (ICD-10 - F33.1) 01/06/2024 Bipolar 2 disorder (ICD-10 - F31.81) Add buspar to help with anxiety. She was hopeful for a benzodiazapine. She is also worried about relapse. Attending meetings and therapy. Continue services as scheduled. Labs completed recently. May self-administer medications or be administered own oral medications per [facility] protocols. Provided informed consent with understanding of [...] or be administered own oral medications per [facility] protocols. Provided informed consent with understanding of side effects, adverse effects, risks and benefits as well as alternative treatments as previously discussed and with the above recommended medications & other aspects of the treatment program. Agrees to return sooner if symptoms worsen or suicidal or homicidal ideations occur. 05/29/2024 Bipolar 2 disorder (ICD-10 - F31.81) Stop Trazodone due to side effects and inefficacy. Start a low dose of Seroquel to help with sleep. She has plenty of hydroxyzine and buspar, taking PRN. Reviewed Prescription Monitoring program. Continue services as scheduled. Labs completed recently. May self-administer medications or be administered own oral medications per [facility] protocols. Provided informed consent with understanding of [...] or be administered own oral medications per [facility] protocols. Provided informed consent with understanding of side effects, adverse effects, risks and benefits as well as alternative treatments as previously discussed and with the above recommended medications & other aspects of the treatment program. Agrees to return sooner if symptoms worsen or suicidal or homicidal ideations occur. 09/25/2024 Bipolar 2 disorder (ICD-10 - F31.81) 09/10/2024 Bipolar 2 disorder (ICD-10 - F31.81) 03/28/2024 АНДРЕЙ (generalized anxiety disorder) (ICD-10 - F41.1) 09/25/2024 АНДРЕЙ (generalized anxiety disorder) (ICD-10 - F41.1) 07/06/2024 PTSD (post-traumatic stress disorder) (ICD-10 - F43.10) 05/29/2024 ADHD (attention deficit hyperactivity disorder) (ICD-10 - F90.9) 01/06/2024 PTSD (post-traumatic stress disorder) (ICD-10 - F43.10) 01/06/2024 АНДРЕЙ (generalized anxiety disorder) (ICD-10 - F41.1) 03/28/2024 PTSD (post-traumatic stress disorder) (ICD-10 - F43.10) 05/29/2024 АНДРЕЙ (generalized anxiety disorder) (ICD-10 - F41.1) 07/06/2024 АНДРЕЙ (generalized anxiety disorder) (ICD-10 - F41.1) 09/25/2024 PTSD (post-traumatic stress disorder) (ICD-10 - F43.10) 09/25/2024 ADHD (attention deficit hyperactivity disorder) (ICD-10 - F90.9) 05/29/2024 PTSD (post-traumatic stress disorder) (ICD-10 - F43.10) 03/28/2024 ADHD (attention deficit hyperactivity disorder) (ICD-10 - F90.9) 01/06/2024 ADHD (attention deficit hyperactivity disorder) (ICD-10 - F90.9) 01/06/2024 Nicotine dependence, unspecified, uncomplicated (ICD-10 - F17.200) 03/28/2024 Nicotine dependence, unspecified, uncomplicated (ICD-10 - F17.200) 09/25/2024 Other Continue current medications. Wants to reduce Seroquel and use melatonin and/or magnesium for sleep. Continue services as scheduled. Labs completed recently. May self-administer medications or be administered own oral medications per [facility] protocols. Provided informed consent with understanding of [...] Date Coverage End Date MEDICAID [address] [place] [address] [id number] Nasdanyel Robertyisabrina Self - patient is the insured 1 2 [employer] [address] [place] [address] [id number] Nast Robertyielle Self - patient is the insured 3 [employer] [address] [place] [address] [id number] Nasdanyel Robertyielle Self - patient is the insured 3 MEDICAID [employer] [address] [facility] [place] [address] [id number] Nast Danyielle Self - patient is the insured 2 2 Medical (General) History Medical History History ICD Code Brain Tumor Seizures Migraines Moderate episode of recurrent major depr essive disorder F33.1 Surgical History Surgery Date(Month/Year) cholecystectomy Partial hysterectomy tubal ligation Hospitalization History Reason Date(Month/Year) Pneumonia 2016
--- OUTSIDE RECORDS SUMMARY | 2024-12-11 18:58 | XMS_ITS | Encounter Summary ---
Author Organization [facility] Address [address] [place] [address] Care Team Providers Care Prenatal Nurse Name Role Phone Cyril Uribe MD Primary Care Provider [phone] José Luis Mohan MD Unavailable [phone] Shanice Barahona MD Primary Care Provider [phone] Paulina Prasad DO Primary Care Provider [phone] Eve Harris DIRECTOR OF FOOD AND NUTRITION SERVICES-TIE PULLER Primary Care Provider Encounter Details Date Type Department Care Team (Late st Contact Info) Description 01/30/2013 Telephone [facility]'s Health Maternal & Care [address] [place] [address] Kandice Fitzpatrick, [facility] Care [place] [address] [place] [address] Social History Tobacco Use Types Packs/Day Years Used Date Smoking Tobacco: Former Cigarettes Q uit: 12/19/2010 Alcohol Use Standard Drinks/Week Comments No 0 (1 standard drink = 0.6 oz pur e alcohol) Comments Yes Sex and Gender Information Value Date Recorded Sex Assigned at Female 01/05/2023 1:24 PM DIRECTOR OF PARTNERSHIPS Legal Sex Female 9:24 AM CDT Gender Identity Female 01/05/2023 1:24 PM DIRECTOR OF PARTNERSHIPS Sexual Orientation Straight 01/05/2023 1: 24 PM DIRECTOR OF PARTNERSHIPS documented as of this encounter Plan of Treatment Upcoming Encounters Date Type Department Care Team (Late st Contact Info) Description 12/20/2024 10:30 AM CDT Procedure visit [facility] - Neurology [address] [facility], [place] [phone] Cindy Negron, DIRECTOR OF FOOD AND NUTRITION SERVICES-TIE PULLER [address] [facility] 1L [place] [phone] documented as of this encounter Visit Diagnoses Not on filedocumented in this encounter Care Teams Prenatal Nurse Relationship Specialty Start Date End Date Cyril Uribe MD [address] [place] [address] PCP - General Internal Medicine 02/29/12 01/12/15 Shanice Barahona MD [address] [place] [address] [place] [phone] PCP - General Family Medicine 01/13/15 05/22/18 Paulina Prasad DO [address] [place] [address] PCP - General 05/03/22 08/31/22 Eve Harris, DIRECTOR OF FOOD AND NUTRITION SERVICES-TIE PULLER [address] [address] PCP - General Nurse Practitioner Family 10/21/22 José Luis Mohan MD [address] [place] [address] Electrophysiology 04/16/14 documented as of this encounter
--- OUTSIDE RECORDS SUMMARY | 2024-12-11 18:59 | XMS_ITS | Encounter Summary ---
Author Organization [facility] Address [address] [facility] [place] [address] Care Team Providers Care Professor Of German Name Role Phone Cyril Uribe MD Primary Care Provider [phone] José Luis Mohan MD Unavailable [phone] Shanice Barahona MD Primary Care Provider [phone] Paulina Prasad DO Primary Care Provider [phone] Eve Harris SIGNAL TESTER-STRAIGHT KNIFE MACHINE CUTTER Primary Care Provider Reason for Visit * Reason Onset Date Comments Appointment 01/23/2013 Infomed patient I spoke with the [facility] Heart dept and they would be getting in contact with her about a maternal echo appt Encounter Details Date Type Department Care Team (Late st Contact Info) Description 01/29/2013 Telephone [facility]'s Health Maternal & Care [address] [place] [address] Kandice Fitzpatrick, [facility] Care [place] [address] [place] [address] Appointment ( Infomed patient I spoke with the [facility] Heart dept and they would be [...] Sex Assigned at Female 01/05/2023 1:[address] JUDGE Legal Sex Female 9:24 AM CDT Gender Identity Female 01/05/2023 1:[address] JUDGE Sexual Orientation Straight 01/05/2023 1: [address] JUDGE documented as of this encounter Plan of Treatment Upcoming Encounters Date Type Department Care Team (Late st Contact Info) Description 12/20/2024 10:30 AM CDT Procedure visit [facility] - Neu[facility] [address] [place] [address], [place] [address] Cindy Negron, SIGNAL TESTER-STRAIGHT KNIFE MACHINE CUTTER [address] [place] [phone] documented as of this encounter Visit Diagnoses Not on filedocumented in this encounter Care Teams Professor Of German Relationship Specialty Start Date End Date Cyril Uribe MD [address] [place] [address] PCP - General Internal Medicine 02/29/12 01/12/15 Shanice Barahona MD [address] [place] [address] [place], [place] [phone] PCP - General Family Medicine 01/13/15 05/22/18 Paulina Prasad DO [address] [place] [address] PCP - General 05/03/22 08/31/22 Eve Harris, SIGNAL TESTER-STRAIGHT KNIFE MACHINE CUTTER [address] [address] PCP - General Nurse Practitioner Family 10/21/22 José Luis Mohan MD [address] [place] [address] Electrophysiology 04/16/14 documented as of this encounter
--- OUTSIDE RECORDS SUMMARY | 2024-12-11 18:59 | XMS_ITS | Encounter Summary ---
Author Organization [facility] Address [address] [facility] [place] [address] Care Team Providers Care Power Generation Equipment Repairer Name Role Phone Cyril Uribe MD Primary Care Provider [phone] José Luis Mohan MD Unavailable [phone] Shanice Barahona MD Primary Care Provider [phone] Paulina Prasad DO Primary Care Provider [phone] Eve Harris MEDICAL SUPPLY TECHNICIAN-ASSEMBLER ENGINE Primary Care Provider Reason for Visit * Reason Onset Date Comments Reschedule Appointment 01/01/2013 left mess age for her to call back; cancelled appt for 01/02/2013-per Dr Lee. Patient spoke with Magdalena Godwin about test results Encounter Details Date Type Department Care Team (Late st Contact Info) Description 01/01/2013 Telephone [facility] Women's Health Maternal & Care [address] [place] [address] Kandice Fitzpatrick, [facility] [place] [address] [place] [address] Reschedule Appointment (left message for her [...] Sex Assigned at Female 01/05/2023 1:24 PM ENGINE DISPATCHER Legal Sex Female 9:24 AM CDT Gender Identity Female 01/05/2023 1:24 PM ENGINE DISPATCHER Sexual Orientation Straight 01/05/2023 1: 24 PM ENGINE DISPATCHER documented as of this encounter Plan of Treatment Upcoming Encounters Date Type Department Care Team (Late st Contact Info) Description 12/20/2024 10:30 AM CDT Procedure visit [facility] - Neurology [address] [place] [address], [place] [phone] Cindy Negron, MEDICAL SUPPLY TECHNICIAN-ASSEMBLER ENGINE [address] [place] [phone] documented as of this encounter Visit Diagnoses Not on filedocumented in this encounter Care Teams Power Generation Equipment Repairer Relationship Specialty Start Date End Date Cyril Uribe MD [address] [place] [address] PCP - General Internal Medicine 02/29/12 01/12/15 Shanice Barahona MD [address] [place] [address] [place] [id number] PCP - General Family Medicine 01/13/15 05/22/18 Paulina Prasad DO [address] [place] [address] PCP - General 05/03/22 08/31/22 Eve Harris, MEDICAL SUPPLY TECHNICIAN-ASSEMBLER ENGINE [address] [address] PCP - General Nurse Practitioner Family 10/21/22 José Luis Mohan MD [address] [place] [address] Electrophysiology 04/16/14 documented as of this encounter
[2024-12-11 19:00] VITALS: BP 112/68; PULSE 99; RESP 18; TEMP 36.9; O2SAT 100
--- OUTSIDE RECORDS SUMMARY | 2024-12-11 19:00 | XMS_ITS | Encounter Summary ---
Author Organization [facility] Address [address] [place] [address] Care Team Providers Care Mail Censor Name Role Phone GuillermoquintinJoshua Lyssa DO Primary Care Provider [phone] Nancy Alexander MD Unavailable [phone] Paulina Prasad DO Primary Care Provider [phone] Eve Harris MECHANICAL AND AUTO BODY CAR CHECKER Primary Care Provider [phone] Encounter Details Date Type Department Care Team (Latest Contact Info) Description 05/22/2021 Signiantt Message Enc [facility] Medical Group Multispecialty Care - [facility] [address] [facility], [address] [place] [address] Nancy Alexander MD [address] [place], [place] [id number] Question regarding CYTOLOGY GENERIC Social History Tobacco Use Types Packs/Day Years Used Date Smoking Tobacco: Every Day Cigarettes 0.3 20 Smokeless Tobacco: Never Comments:5-7 cigarettes a da y Alcohol Use Standard Drinks/Week Comments Yes 0 (1 standard drink = 0.6 oz pur e alcohol) 1-2 drinks a week Comments No Sex and Gender Information Value Date Recorded Sex Assigned at Female 03/20/2024 12:00 PM SEO ANALYST Legal Sex Female 7:31 PM CDT Gender Identity Female 04/16/2021 12:45 PM SEO ANALYST Sexual Orientation Not on file COVID-19 Exposure Response Date Recorded In the last 10 days, have yo u been in contact with someone who was confirmed or suspected to have Coronavirus/COVID-19? No / Unsure 05/25/2021 10:24 AM CDT documented as of this encounter Functional Status * RETIRED Are you deaf or do you have serious difficulty hearing Answer Date of Assessment Author Status No 05/18/2021 10:01 PM CDT Acti ve * RETIRED Are you blind or do you have serious difficulty seeing, even when wearing glasses? Answer Date of Assessment Author Status No 05/18/2021 10:01 PM CDT Acti ve * Do you have serious difficulty walking or climbing stairs? Answer Date of Assessment Author Status Yes 05/18/2021 10:01 PM CDT Otoniel Triplett RN Active * Do you have difficulty dressing or bathing? Answer Date of Assessment Author Status No 05/18/2021 10:01 PM CDT Otoniel Triplett RN Active * Because of a physical, mental, or emotional condition, do you have difficulty doing errands alone such as visiting a doctor's office or shopping? Answer Date of Assessment Author Status No 05/18/2021 10:01 PM CDT Otoniel Triplett RN Active documented as of this encounter Mental Status * Because of a physical, mental, or emotional condition, do you have serious difficulty concentrating, remembering, or making decisions? Answer Entry Date Author Status No 05/18/2021 10:01 PM RUDIT Otoniel Triplett RN Active documented in this encounter Plan of Treatment Not on file documented as of this encounter Goals Goal Patient Goal Type Associated Problems Recent Progress Patient-Stated? Author Patient will return to prior living situation and remain independent in ADLs upon discharge from hospital General Le Man RN documented as of this encounter Visit Diagnoses Not on filedocumented in this encounter Additional Health Concerns Infection Onset Date Last Indicated Resolved Time COVID-19 Confirmed 10/28/2022 10/28/2022 12:32 AM SEO ANALYST COVID-19 Rule Out 01/19/2023 10/28/2022 01/19/2023 10:11 AM SEO ANALYST COVID-19 Rule Out 02/28/2024 02/28/2024 02/28/2024 7:08 AM SEO ANALYST Influenza - Seasonal 02/28/2024 02/28/2024 025 12:33 AM SEO ANALYST documented as of this encounter Care Teams Mail Censor Relationship Specialty Start Date End Date Joshua Holly DO PCP - General FAMILY PRACTICE 05/01/21 02/16/22 Paulina Prasad DO [address] [place] [address] PCP - General FAMILY PRACTICE 03/26/22 06/13/22 [place] [address] [address] PCP - General Nurse Practitioner Family 06/14/22 Nancy Alexander MD Physician NEUROLOGY 05/21/21 06/21/22 documented as of this encounter
--- OUTSIDE RECORDS SUMMARY | 2024-12-11 19:00 | XMS_ITS | Encounter Summary ---
Author Organization [facility] Address [address] [place] [address] Care Team Providers Care Esthetician Name Role Phone Nancy Alexander MD Unavailable [phone] Paulina Prasad DO Primary Care Provider [phone] Eve Harris NP Primary Care Provider [phone] Encounter Details Date Type Department Care Team (Late st Contact Info) Description 05/26/2022 New Futuro Message Enc [facility] Medical Group Family Medicine - [place] [address] [facility], [address] [place] [address] Rosy, [facility] Provider New Pcp Social History Tobacco Use Types Packs/Day Years Used Date Smoking Tobacco: Light Smoker Cigarettes 0.5 1 Started: 020; Last attempted to quit: 10/28/2020 Smokeless Tobacco: Never Comments:On and off for 20 y ears Alcohol Use Standard Drinks/Week Comments Not Currently 0 (1 standard drink = 0.6 oz pur e alcohol) 1-2 drinks a week PHQ-2 Answer Date Recorded Patient Health Questionnaire-2 Score 2 04/30/2022 Comments No Sex and Gender Information Value Date Recorded Sex Assigned at Female 03/20/2024 12:00 PM MOTORCYCLE FABRICATOR Legal Sex Female 7:31 PM CDT Gender Identity Female 04/16/2021 12:45 PM MOTORCYCLE FABRICATOR Sexual Orientation Not on file COVID-19 Exposure Response Date Recorded In the last 10 days, have yo u been in contact with someone who was confirmed or suspected to have Coronavirus/COVID-19? No / Unsure 05/27/2022 1:27 PM CDT documented as of this encounter Functional [...] Date Author Status No 05/18/2021 10:01 PM CDT Otoniel Triplett RN Active documented in this [...] Time COVID-19 Confirmed 10/28/2022 10/28/2022 12:32 AM MOTORCYCLE FABRICATOR COVID-19 Rule Out 01/19/2023 10/28/2022 01/19/2023 10:11 AM MOTORCYCLE FABRICATOR COVID-19 Rule Out 02/28/2024 02/28/2024 02/28/2024 7:08 AM MOTORCYCLE FABRICATOR Influenza - Seasonal 02/28/2024 02/28/2024 025 12:33 AM MOTORCYCLE FABRICATOR Assessment Noted Time PHQ-9 Depression Total Score: 17 04/2 022 11:33 AM CDT documented as of this encounter Care Teams Esthetician Relationship Specialty Start Date End Date ShanicePaulina chang [address] [place] [address] PCP - General FAMILY PRACTICE 03/26/22 06/13/22 Eve Harris, ASBESTOS SURVEYOR [address] [address] PCP - General Nurse Practitioner Family 06/14/22 Nancy Alexander MD Physician NEUROLOGY 05/21/21 06/21/22 documented as of this encounter
--- OUTSIDE RECORDS SUMMARY | 2024-12-11 19:00 | XMS_ITS | Encounter Summary ---
Author Organization [facility] Address [address] [place] [address] [place] [address] Care Team Providers Care Activity Aid Name Role Phone José Luis Mohan MD Unavailable [phone] Eve Harris TUNNEL HEADING SUPERVISOR-[facility] Primary Care Provider Reason for Visit * Reason Onset Date Comments MEDICATION REFILL 08/12/2023 Encounter Details Date Type Department Care Team (Late st Contact Info) Description 08/12/2023 Refill [facility] - Neurology [address] [place] [address], [place] [phone] Davey Cleveland, TUNNEL HEADING SUPERVISOR-[address] [address] MEDICATION REFILL Social History Tobacco Use Types Packs/Day Years Used Date Smoking Tobacco: Former Cigarettes Q uit: 2022 Alcohol Use Standard Drinks/Week Comments No 0 (1 standard drink = 0.6 oz pur e alcohol) PHQ-2 Answer Date Recorded Patient Health Questionnaire-2 Score 2 12/06/2022 Comments No Sex and Gender Information Value Date Recorded Sex Assigned at Female 01/05/2023 1:24 PM CLAY TRANSPORTER Legal Sex Female 9:24 AM CDT Gender Identity Female 01/05/2023 1:24 PM CLAY TRANSPORTER Sexual Orientation Straight 01/05/2023 1: 24 PM CLAY TRANSPORTER documented as of this encounter Miscellaneous Notes [...] Description 12/20/2024 10:30 AM CDT Procedure visit [facility] - Neurology [address] [place] [address], [place] [address] Cindy Negron, TUNNEL HEADING SUPERVISOR-EXTERNAL RELATIONS MANAGER [address] [place] [address] [place] [address] documented as of this encounter Visit Diagnoses Not on filedocumented in this encounter Care Teams Activity Aid Relationship Specialty Start Date End Date Eve Harris, TUNNEL HEADING SUPERVISOR-EXTERNAL RELATIONS MANAGER [address] [address] PCP - General Nurse Practitioner Family 10/21/22 José Luis Mohan MD Electrophysiology 04/16/14 documented as of this encounter
--- OUTSIDE RECORDS SUMMARY | 2024-12-11 19:00 | XMS_ITS | Encounter Summary ---
Author Organization [facility] Address [address] [place] [address] Care Team Providers Care Fence Post Driver Name Role Phone Brenda Jerel Farida DO Primary Care Provider [phone] Joshua Holly DO Primary Care Provider [phone] Nancy Alexander MD Unavailable [phone] Paulina rPasad DO Primary Care Provider [phone] Eve Harris BURNING PLANT OPERATOR Primary Care Provider [phone] Encounter Details Date Type Department Care Team (Late st Contact Info) Description 04/27/2021 Therapy Plan [facility] Outpatient Therapy [place], [place] [phone] Dilma Stokes, PT [address] [place], [place] [phone] Social History Tobacco Use Types Packs/Day Years Used Date Smoking Tobacco: Every Day Cigarettes 0.3 20 Smokeless Tobacco: Never Comments:5-7 cigarettes a da y Alcohol Use Standard Drinks/Week Comments Yes 0 (1 standard drink = 0.6 oz pur e alcohol) 1-2 drinks a week Comments No Sex and Gender Information Value Date Recorded Sex Assigned at Female 03/20/2024 12:00 PM MANAGER INVENTORY MANAGEMENT Legal Sex Female 7:31 PM CDT Gender Identity Female 04/16/2021 12:45 PM MANAGER INVENTORY MANAGEMENT Sexual Orientation Not on file COVID-19 Exposure Response Date Recorded In the last 10 days, have yo u been in contact with someone who was confirmed or suspected to have Coronavirus/COVID-19? No / Unsure 04/30/2021 7:53 AM MANAGER INVENTORY MANAGEMENT documented as of this encounter Plan of Treatment Not on file documented as of this encounter Visit Diagnoses Not on filedocumented in this encounter Additional Health Concerns Infection Onset Date Last Indicated Resolved Time COVID-19 Confirmed 10/28/2022 10/28/2022 12:32 AM MANAGER INVENTORY MANAGEMENT COVID-19 Rule Out 01/19/2023 10/28/2022 01/19/2023 10:11 AM MANAGER INVENTORY MANAGEMENT COVID-19 Rule Out 02/28/2024 02/28/2024 02/28/2024 7:08 AM MANAGER INVENTORY MANAGEMENT Influenza - Seasonal 02/28/2024 02/28/2024 025 12:33 AM MANAGER INVENTORY MANAGEMENT documented as of this encounter Care Teams Fence Post Driver Relationship Specialty Start Date End Date Jerel Gutierrez [facility] [address] [facility] [place] [id number] PCP - General INTERNAL MEDICINE 02/15/19 04/30/21 Joshua Holly DO [address] [phone] PCP - General FAMILY PRACTICE 05/01/21 02/16/22 Paulina Prasad DO [address] [place] [address] PCP - General FAMILY PRACTICE 03/26/22 06/13/22 [place] [address] [address] PCP - General Nurse Practitioner Family 06/14/22 Kevyn-Nancy Romero MD [address] [address] Physician NEUROLOGY 05/21/21 06/21/22 documented as of this encounter
--- OUTSIDE RECORDS SUMMARY | 2024-12-11 19:00 | XMS_ITS | Encounter Summary ---
Author Organization [facility] Address [address] [place] [address] Care Team Providers Care Maintenance Mechanic Elevators Name Role Phone GuillermoquintinJoshua Lyssa DO Primary Care Provider [phone] Nancy Alexander MD Unavailable [phone] Paulina Prasad DO Primary Care Provider [phone] Eve Harris BUSINESS INTEGRATION MANAGER Primary Care Provider [phone] Encounter Details Date Type Department Care Team (Latest Contact Info) Description 05/22/2021 ChoiceMapt Message Enc [facility] Medical Group Multispecialty Care - [facility] [address] [facility], [address] [place] [address] Nancy Alexander MD [address] [place], [place] [phone] Question regarding IGG SYNTHESIS RATE *CSF AND SERUM REQUIRED* Social History Tobacco Use Types Packs/Day Years Used Date Smoking Tobacco: Every Day Cigarettes 0.3 20 Smokeless Tobacco: Never Comments:5-7 cigarettes a da y Alcohol Use Standard Drinks/Week Comments Yes 0 (1 standard drink = 0.6 oz pur e alcohol) 1-2 drinks a week Comments No Sex and Gender Information Value Date Recorded Sex Assigned at Female 03/20/2024 12:00 PM GANG HEAD SAW OPERATOR Legal Sex Female 7:31 PM CDT Gender Identity Female 04/16/2021 12:45 PM GANG HEAD SAW OPERATOR Sexual Orientation Not on file COVID-19 Exposure [...] Triplett RN Active documented in this encounter Progress Notes * Stacy Kat MA - 05/22/2021 1:28 PM CDT Please advise (2) notes on patient documented in this encounter Plan of Treatment [...] Time COVID-19 Confirmed 10/28/2022 10/28/2022 12:32 AM GANG HEAD SAW OPERATOR COVID-19 Rule Out 01/19/2023 10/28/2022 01/19/2023 10:11 AM GANG HEAD SAW OPERATOR COVID-19 Rule Out 02/28/2024 02/28/2024 02/28/2024 7:08 AM GANG HEAD SAW OPERATOR Influenza - Seasonal 02/28/2024 02/28/2024 025 12:33 AM GANG HEAD SAW OPERATOR documented as of this encounter Care Teams Maintenance Mechanic Elevators Relationship Specialty Start Date End Date Joshua Holly DO PCP - General FAMILY PRACTICE 05/01/21 02/16/22 Paulina Prasad DO [address] [place] [address] PCP - General FAMILY PRACTICE 03/26/22 06/13/22 Eve Harris, BUSINESS INTEGRATION MANAGER [address] [address] PCP - General Nurse Practitioner Family 06/14/22 Nancy Alexander MD Physician NEUROLOGY 05/21/21 06/21/22 documented as of this encounter
--- OUTSIDE RECORDS SUMMARY | 2024-12-11 19:00 | XMS_ITS | Encounter Summary ---
Author Organization [facility] Address [address] [place] [address] Care Team Providers Care Pipe Crew Foreman Name Role Phone Nancy Alexander MD Unavailable [phone] Paulina Prasad DO Primary Care Provider [phone] Eve Harris NP Primary Care Provider [phone] Encounter Details Date Type Department Care Team (Late st Contact Info) Description 05/10/2022 [place] [facility] Techn[employer] Message Enc [facility] Family Medicine - [address], [address] [place] [address] Paulina Parsad DO [address] [place] [address] Work note Social History Tobacco Use Types Packs/Day Years [...] Sex Assigned at Female 03/20/2024 12:00 PM WINDOW GLASS INSTALLER Legal Sex Female 7:31 PM CDT Gender Identity Female 04/16/2021 12:45 PM WINDOW GLASS INSTALLER Sexual Orientation Not on file COVID-19 Exposure Response Date Recorded In the last 10 days, have yo u been in contact with someone who was confirmed or suspected to have Coronavirus/COVID-19? No / Unsure 05/07/2022 7:47 PM WINDOW GLASS INSTALLER documented as of this encounter Functional Status [...] documented in this encounter Progress Notes * Winter Zepeda - 05/12/2022 9:40 AM CDT LVM for patient at [phone]; I introduced myself and offered assistance scheduling an appointment with a [facility] provider if needed. I was also going to suggest patient call Nissa Batista, patient advocate at who can help find a new PCP within [facility],. * Paulina Prasad DO - 05/10/2022 5:39 PM CDT Alerting juju and winter please see patient's response. Glad her psychiatrist is filing out the paperwork Please inform that referral were placed and letters were sent to patient . In her my chart april ( functional capacity was sent to her) Medical records she was asking about information being sent to her new pcp please help out CHART NOTE FOR THE CHART I talked to winter about this patient last week who reviewed the chart I personally spoke to occupational health about this patient as well who recommended functional capacity testing at independent facility to assess her ability. 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. Per chart review referral services send a letter to the patient on may 06, 2022 telling her [facility] approved her functional capacity see letter Pt was followed by multiple specialist and unusual to a pcp to fill out paperwork for disabilty fora diagnosis managed by specialists I did meet the patient once via virtual April 30, 2022. I wrote a letter defer to specialist see media letter scan . Pt NO SHOWED on april 28, 2022 with me. Pt was advised to ask her other specialist and she stated they all referred back to pcp. Her [facility] neurologist didn't accept her insurance anymore and I placed a new neuro referral . Patientdidn't want [employer] neuro again. She was seen Dr. Bagley and per letter in the chart patient was suppose to return full duty on June 23, 2021 Per her last telephone encounter to her [facility] u from apr 15, 2022 in regards to patient's comment having 2 breakthrough seizures. The first was on 03/20/22 and the second was on 04/10/22. She stated that her boyfriend witnessed both events and that they lasted 2 to 3 minutes each... 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 Unless the events were very different from what we captured during her EMU admission, then she does not need any change in ASM regimen. She should continue to follow through with psychiatric care and talking therapies. Uli This is why I asked patient to ask her psychiatrist and her specialist. Kassie did explain that a functional capacity was ordered So processes were discussed with patient see telephone encounter, referral were placed * Paulina Prasad DO - 05/10/2022 5:39 PM CDTFrom: Chriss Snell To: Dr. Paulina Prasad Sent: 05/10/2022 4:49 PM CDT Subject: Work note Dr. Prasad, I am very displeased in the way you???ve handled this situation with my return to work form. It is not my problem that my previous pcp wrote it the way he did. You just deferred me to others when they weren???t the ones who took me off work or handled any of it. You could of told me the steps I needed to take in o rder for you to do the note. Instead it has been back and forth and no one has set me up to do the FCT. I can???t just ???get into neurology earlier?? you should know it doesn???t work that way. I am very displeased with this whole situation and the lack of empathy or willingness to work with me on a resolution but just a pass the bedolla and put more stress on me to figure it out. I will be finding a new primary at the [facility] location. Dr Leah Holly was a very understanding caring person with compassion and empathy. You are not. My psychiatrist will be taking care of the forms. The new Dr office will reach out to have my records transferred from your care. documented in this encounter Plan of Treatment [...] Time COVID-19 Confirmed 10/28/2022 10/28/2022 12:32 AM WINDOW GLASS INSTALLER COVID-19 Rule Out 01/19/2023 10/28/2022 01/19/2023 10:11 AM WINDOW GLASS INSTALLER COVID-19 Rule Out 02/28/2024 02/28/2024 02/28/2024 7:08 AM WINDOW GLASS INSTALLER Influenza - Seasonal 02/28/2024 02/28/2024 025 12:33 AM WINDOW GLASS INSTALLER Assessment Noted Time PHQ-9 Depression Total Score: 17 022 11:33 AM CDT documented as of this encounter Care Teams Pipe Crew Foreman Relationship Specialty Start Date End Date ShanicePaulinaDO [facility] [place] [address] PCP - General FAMILY PRACTICE 03/26/22 06/13/22 Eve Harris, ALLA [address] [address] PCP - General Nurse Practitioner Family 06/14/22 Nancy Alexander MD Physician NEUROLOGY 05/21/21 06/21/22 documented as of this encounter
--- OUTSIDE RECORDS SUMMARY | 2024-12-11 19:00 | XMS_ITS | Clinical Summary ---
Author Organization [facility] Address [address] [place] [address] Care Team Providers Care Director Digital Advertising Name Role Phone Nancy Alexander MD Unavailable [phone] Caryl Lujan OT Unavailable Unavailab Eve Suero BEVEL MILL OPERATOR Primary Care Provide r Allergies Active Allergy [...] rheumatology. Assessment & Plan (03/08/2022 3:35 PM FIRE PROTECTION EQUIPMENT TECHNICIAN): Follows with rheumatology. No contraindications to HCQ use at this time. Return for HVF 10-2 audiology technician only. If no concerns, okay to [...] on file Legal Sex Female 2:54 AM FIRE PROTECTION EQUIPMENT TECHNICIAN Gender Identity Female 07/22/2022 9:56 AM CDT [...] CDT Oxygen Saturation 100% 01/06/2022 10:06 AM FIRE PROTECTION EQUIPMENT TECHNICIAN Inhaled Oxygen Concentration - - Weight 66 [...] ORDERABLES Final Resul t Performing Organization Address [facility] Co de Phone Number [facility] * Hepatitis panel, acute (11/25/2021 11:08 AM CDT) Hep A IgM Nonreactive Nonreactive [facility] Comment: Interpretive Data: If Hep A IgM Ab is reported as Equivocal, a new sample should be drawn in two weeks for testing. Current interpretive data was last revised on 19. Hep B core IgM Nonreactive Nonreactive [facility] Comment: Interpretive Data If HepB Core IgM Ab is reported as Equivocal, a new sample should be drawn in two weeks for testing. Current interpretive data was last revised on 19. Hep C Ab Nonreactive Nonreactive [facility] Comment:Antibodies to HCV no t detected. Does NOT exclude the possibility of recent exposure to HCV. HepBsAg Nonreactive Nonreactive [facility] Blood 11/25/2021 11:0 8 AM CDT 11/25/2021 1:33 PM CDT Venus Siegel MD LAB MICROBIOLOGY - GENERAL ORDER RACHID Edited Result - Final Performing Organization Address City/[facility] Co de Phone Number [facility] [place] [address] from Last 3 Months or Most Recently Relevant to Health Maintenance Insurance [facility]K [facility] Address: [address] [address] [facility] Advance Directives For more information, please contact: [phone] Documents on File Type Date Recorded Patient Gear Inspector Expl anation ADVANCE DIRECTIVE 06/24/2021 3:41 PM Power of Regional Sales Representative-Medical * Full Code (Latest Code Status on File) Date Activated Date Inactivated Comments 07/29/2021 8:59 AM 08/03/2021 6:07 PM Care Teams Director Digital Advertising Relationship Specialty [place] [address] [address] [address] PCP - General Nurse Practitioner 04/11/24 Nancy Alexander MD [address] [address] Fellow Neurology 08/13/21 Caryl Lujan, OT Occupational Therapist Occupational Therapy 04/11/24
--- OUTSIDE RECORDS SUMMARY | 2024-12-11 19:00 | XMS_ITS | Encounter Summary ---
Author Organization [facility] Address [facility] access hospital[address] [place] [address] Care Team Providers Care Software Engineer Sales Name Role Phone Jerel Gutierrez Farida DO Primary Care Provider [phone] Joshua Holly DO Primary Care Provider [phone] Nancy Alexander MD Unavailable [phone] Paulina Prasad DO Primary Care Provider [phone] Eve Harris CITRIX ADMINISTRATOR Primary Care Provider [phone] Encounter Details Date Type Department Care Team (Late st Contact Info) Description 06/12/2020 Prep for Procedure [facility] [address] [place] [address] Emiliano Azar MD 3 [facility] [address] [place] [address] Social History Tobacco Use Types Packs/Day Years Used Date Smoking Tobacco: Every Day Cigarettes 0.3 20 Smokeless Tobacco: Never Comments:5-7 cigarettes a da y Alcohol Use Standard Drinks/Week Comments Yes 0 (1 standard drink = 0.6 oz pur e alcohol) 1-2 drinks a week Comments No Sex and Gender Information Value Date Recorded Sex Assigned at Female 03/20/2024 12:00 PM CHARGING PLUG PLACER Legal Sex Female 7:31 PM CDT Gender Identity Female 04/16/2021 12:45 PM CHARGING PLUG PLACER Sexual Orientation Not on file COVID-19 Exposure Response Date Recorded In the last month, have you been in contact with someone who was confirmed or suspected to have Coronavirus / COVID-19? No / Unsure 06/13/2020 9:00 AM CDT documented as of this encounter Plan of Treatment Not on file documented as of this encounter Results * PRE-SURGICAL/PRE-PROCEDURE CORONAVIRUS (COVID 19) (06/17/2020 11:55 AM CDT) CORONAVIRUS SARS COV 2 PCR (RESP) NOT DETECTED NOT DETECTED 06/18/2020 6:46 AM CDT [employer] [facility] Comment: A Not Detected (negative) test result for this test means that SARS-CoV-2 RNA was not present in the specimen above the limit of detection. A negative result does not rule out the possibility of COVID-19 and should not be used as the sole basis for treatment or patient management decisions. If COVID-19 is still suspected, based on exposure history together with other clinical findings, re-testing should be considered in consultation with public health authorities. Laboratory test results should always be considered in the context of clinical observations and epidemiological data in making a final diagnosis and patient management decisions. This patient specimen was tested using an FDA EUA pooling method. Negative results from pooled testing should not be treated as definitive. If the patient's clinical signs and symptoms are inconsistent with a negative result or results are necessary for patient management, then the patient should be considered for individual testing. In very rare cases, estimated at about 8 in 1,000 (0.8%) or less patient specimens with low viral loads may not be detected in sample pools due to the decreased sensitivity of pooled testing. Please review the Fact Sheets and FDA authorized labeling available for health care providers and patients using the following websites: https://www.[employer]/home/Covid-19/HCP/rc- hiru-geh0-bikf-sheet.html https://www.[employer]/home/Covid-19/Patients/ gk-ihpu-rus7-fact-sheet.html This test has been authorized by the FDA under an Emergency Use Authorization (EUA) for use by authorized laboratories. Due to the current public health emergency, [facility] is receiving a high volume of samples from a wide variety of swabs and media for COVID-19 testing. In order to serve patients during this public health crisis, samples from appropriate clinical sources are being tested. Negative test results derived from specimens received in non-commercially manufactured viral collection and transport media, or in media and sample collection kits not yet authorized by FDA for COVID-19 testing should be cautiously evaluated and the patient potentially subjected to extra precautions such as additional clinical monitoring, including collection of an additional specimen. Methodology: Nucleic Acid Amplification Test (NAAT) includes RT-PCR or TMA Additional information about COVID-19 can be found at the [facility] website: www.[facility]/Covid19. Test performed at [facility] [id number] [place] [id number] Director: ADEBAYO SHEPPARD DO,MPH FIRST TEST NO 06/17/2020 12:31 PM CDT [facility] EMPLOYED IN HEALTHCARE NO 06/17/2020 12:31 PM CDT [facility] SYMPTOMATIC DEFINED BY CDC NO 06/17/2020 12:31 PM CDT [facility] DATE OF SYMPTOM ONSET NO 06/17/2020 1:55 PM CDT [facility] HOSPITALIZATION STATUS NO 06/17/2020 12:31 PM CDT [facility] PATIENT IN ICU NO 06/17/2020 12:31 PM CDT [facility] RESIDENT OF [facility] NO 06/17/2020 12:31 PM CDT [facility] NOT 06/17/2020 12:31 PM CDT [facility] PATIENT'S RACE WHITE OR 06/17/2020 12:31 PM CDT [facility] ETHNICITY NONHISPANIC 06/17/2020 12:31 PM CDT [facility] SOURCE (QST) NASOPHARYNGEAL SWAB 06/17/2020 12:31 PM CDT [facility] NASOPHARYNGEAL SWAB / Unknown 06/17/2020 11:55 AM CDT us Emiliano Azar MD MICROBIOLOGY - GENERAL ORDERABLE S Final Result [facility] [address] [place] [address], [employer] [facility] [address] [place] [address], [place] documented in this encounter Visit Diagnoses Diagnosis Preop testing- Primary Preoperative examination, unspecified documented in this encounter Additional Health Concerns Infection Onset Date Last Indicated Resolved Time COVID-19 Rule Out 06/13/2020 06/13/2020 06/14/2020 12:32 PM CDT COVID-19 Rule Out 06/17/2020 06/17/2020 06/18/2020 6:46 AM CDT COVID-19 Rule Out 02/27/2021 02/27/2021 02/27/2021 1:08 PM CHARGING PLUG PLACER COVID-19 Confirmed 02/27/2021 02/27/2021 12:32 AM CHARGING PLUG PLACER COVID-19 Confirmed 10/28/2022 10/28/2022 12:32 AM CHARGING PLUG PLACER COVID-19 Rule Out 01/19/2023 10/28/2022 01/19/2023 10:11 AM CHARGING PLUG PLACER COVID-19 Rule Out 02/28/2024 02/28/2024 02/28/2024 7:08 AM CHARGING PLUG PLACER Influenza - Seasonal 02/28/2024 02/28/2024 025 12:33 AM CHARGING PLUG PLACER documented as of this encounter Care Teams Software Engineer Sales Relationship Specialty Start Date End Date Jerel Gutierrez DO [address] [employer] [facility] [address] [place] [address] PCP - General INTERNAL MEDICINE 02/15/19 04/30/21 Joshua Holly DO [address] [employer] [facility] [address] [place] [address] PCP - General FAMILY PRACTICE 05/01/21 02/16/22 Paulina Prasad DO [facility] [place] [address] PCP - General FAMILY PRACTICE 03/26/22 06/13/22 Eve Harris, ALLA [address] [address] PCP - General Nurse Practitioner Family 06/14/22 Nancy Alexander MD [address] [address] Physician NEUROLOGY 05/21/21 06/21/22 documented as of this encounter
--- OUTSIDE RECORDS SUMMARY | 2024-12-11 19:01 | XMS_ITS | Encounter Summary ---
Author Organization [facility] Address [address] [place] [address] Care Team Providers Care Foil Operator Name Role Phone Eve Harris NP Primary Care Provider [phone] Encounter Details Date Type Department Care Team (Late st Contact Info) Description 10/04/2023 SNAPP' Message Enc [facility] Family & Internal Medicine [address] [address] [facility] Provider Medication Refill Social History Tobacco Use Types Packs/Day Years Used Date Smoking Tobacco: Light Smoker Cigarettes Smokeless Tobacco: Never Comments:On and off for 20 y ears Alcohol Use Standard Drinks/Week Comments Not Currently 0 (1 standard drink = 0.6 oz pur e alcohol) PHQ-2 Answer Date Recorded Patient Health Questionnaire-2 Score 4 03/30/2023 Comments No Sex and Gender Information Value Date Recorded Sex Assigned at Female 03/20/2024 12:00 PM TRASH MAN Legal Sex Female 7:31 PM CDT Gender Identity Female 04/16/2021 12:45 PM TRASH MAN Sexual Orientation Not on file documented as of this encounter Functional Status [...] Author Status Yes 05/18/2021 10:01 PM CDT Landrito, Ruferd M, RN Active * Do you have difficulty dressing or bathing? Answer Date of Assessment Author Status No 05/18/2021 10:01 PM Otoniel Dyer RN Active * Because of a physical, mental, or emotional condition, do you have difficulty doing errands alone such as visiting a doctor's office or shopping? Answer Date of Assessment Author Status No 05/18/2021 10:01 PM Otoniel Dyer RN Active documented as of this encounter Mental Status * Because of a physical, mental, or emotional condition, do you have serious difficulty concentrating, remembering, or making decisions? Answer Entry Date Author Status No 05/18/2021 10:01 PM Otoniel Dyer RN Active documented in this encounter Plan [...] Last Indicated Resolved Time COVID-19 Rule Out 02/28/2024 02/28/2024 02/28/2024 7:08 AM TRASH MAN Influenza - Seasonal 02/28/2024 02/28/2024 025 12:33 AM TRASH MAN Assessment Noted Time PHQ-9 Depression Total Score: 15 024 11:53 AM TRASH MAN documented as of this encounter Care Teams Foil Operator Relationship Specialty [place] [address] [address] PCP - General Nurse Practitioner Family 06/14/22 documented as of this encounter
--- OUTSIDE RECORDS SUMMARY | 2024-12-11 19:01 | XMS_ITS | Encounter Summary ---
Author Organization [facility] Address [facility] [facility] [place] [address] Care Team Providers Care Manager Power Name Role Phone José Luis Mohan MD Unavailable [phone] Eve Harris SEXUAL ASSAULT NURSE-FIOS LINE INSTALLER Primary Care Provider Reason for Visit * Reason Onset Date Comments MEDICATION REFILL 08/26/2023 Encounter Details Date Type Department Care Team (Late st Contact Info) Description 08/26/2023 Refill [facility] - Neurology [facility] [place] [address] Stacy Mills APRN-FIOS LINE INSTALLER [address] [place] [address] MEDICATION REFILL Social History Tobacco Use Types Packs/Day Years Used Date Smoking Tobacco: Former Cigarettes Q uit: 2022 Alcohol Use Standard Drinks/Week Comments No 0 (1 standard drink = 0.6 oz pur e alcohol) PHQ-2 Answer Date Recorded Patient Health Questionnaire-2 Score 2 12/06/2022 Comments No Sex and Gender Information Value Date Recorded Sex Assigned at Female 01/05/2023 1:24 PM SAT INSTRUCTOR Legal Sex Female 9:24 AM CDT Gender Identity Female 01/05/2023 1:24 PM SAT INSTRUCTOR Sexual Orientation Straight 01/05/2023 1: 24 PM SAT INSTRUCTOR documented as of this encounter Miscellaneous Notes [...] Description 12/20/2024 10:30 AM CDT Procedure visit [facility] - Neurology [address] [place] [address], [facility] [place] [address] Cindy Negron, SEXUAL ASSAULT NURSE-FIOS LINE INSTALLER [address] [place] [phone] documented as of this encounter Visit Diagnoses Not on filedocumented in this encounter Care Teams Manager Power Relationship Specialty Start Date End Date Eve Harris, SEXUAL ASSAULT NURSE-FIOS LINE INSTALLER [address] [address] PCP - General Nurse Practitioner Family 10/21/22 José Luis Mohan MD Electrophysiology 04/16/14 documented as of this encounter
--- OUTSIDE RECORDS SUMMARY | 2024-12-11 19:01 | XMS_ITS | Clinical Summary ---
Author Organization [facility] Address [address] [place] [address] Care Team Providers Care Bull Gang Worker Name Role Phone José Luis Mohan MD Unavailable [phone] Eve Harris APRN-AERIAL HURRICANE HUNTER Primary Care Provider Source Comments [facility],non-owned Affiliates and Associated Physician Practices is amultiple site organization consisting of ambulatory clinics and hospital sitesin [place], [place], [place] and [place]. This disclosure is being madepursuant to the Care Everywhere program and may not contain all information available regarding this patient. Last updated 17.[facility] Allergies Active Allergy Reactions Criticality Noted Date [...] 23 Active Cholecalciferol (vitamin D3) 1.25 MG (00014 UT) capsule Take 1 (one) capsule by mouth 06/15/19 23 Active prazosin (Minipress) 1 MG capsule Take 2 (two) capsules by mouth at bedtime 04/24/19 22 Active montelukast (Singulair) 10 MG tablet Take 1 (one) tablet by mouth once daily 04/09/19 23 Active fluticasone propionate (Flonase) 50 MCG/ACT nasal spray [place] 1 (one) spray into the nose once [...] Active vitamin D, ergocalciferol, (Drisdol) 1.25 MG (63682 UT) capsule 04/06/19 24 Active buPROPion XL [...] (11/05/2022): Added automatically from request for surgery [id number] History of colon polyps 07/09/2022 11/06/19 23 Overview (11/05/2022): Added automatically from request for surgery [id number] Weakness of left side of body 05/21/2022 Irregular periods 04/15/2022 06/30/2022 Moderate recurrent major depression 04/15/2022 06/30/2022 Chronic migraine w/o aura, not intractable, w st at migr 03/29/2022 06/30/2022 Disorder of connective tissue 03/08/2022 Overview (06/30/2022): Last Assessment & Plan: Follows with rheumatology. No contraindications to HCQ use at this time. Return for [facility] 10-2 helpdesk technician only. If no concerns, okay to [...] Description 09/13/2024 1:00 PM CDT Procedure visit [facility] - Neurology [address] [place] [address] Cindy Negron, RAW STOCK MACHINE FEEDER-AERIAL HURRICANE HUNTER Intractable chronic migraine without aura and without status migrainosus 09/13/2024 Travel from Last 3 Months Immunizations Immunization Administration [...] Sex Assigned at Female 01/05/2023 1:24 PM HIM ANALYST Legal Sex Female 9:24 AM CDT Gender Identity Female 01/05/2023 1:24 PM HIM ANALYST Sexual Orientation Straight 01/05/2023 1: 24 PM HIM ANALYST Last Filed Vital Signs Vital Sign Reading [...] visit [facility] - Neurology [address] [facility], [place] [address] Cindy Negron, RAW STOCK MACHINE FEEDER-AERIAL HURRICANE HUNTER [address] [place] [address] [place] [address] Health Maintenance Due Date Last Done Comments HIV SCREENING 1996 PNEUMOCOCCAL VACCINE (1 of 2 - PCV) 2000 HPV VACCINE (1 - 3-dose SCDM series) 2008 COVID-19 VACCINE ( - season) 2024 03/07/2020, 02/15/2020 INFLUENZA VACCINE (#1) 2024 , [...] this topic Medical Devices Implanted Type Area Bending Machine Operator Device Identifier Shelf Expiration Date Model / Serial / Lot Sys Ureth Supp Obtryx Midurethral Trnstr Implanted:Qty: 1 on 08/08/2023 by Vera Ramirez Che, MD at [facility] N/A: Barney Matcha Scimed 04/12/2026 [id number] / / [id number] Procedures Procedure Name Priority Date/Time Associated Diagnosis Comments [place] CHEMODENERV MUSC MIGRAINE Routine 09/13/2024 1:36 PM CDT Intractable chronic migraine without aura and without status migrainosus from Last 3 Months Results * [place] CHEMODENERV MUSC MIGRAINE (09/13/2024 1:36 PM CDT) Narrative Cindy Negron APRN-CNP - 09/13/2024 1:36 PM CDT Cindy Negron APRN-CNP 09/13/2024 1:40 PM Botox Procedure Note Patient's identity confirmed by having patient say first and last name. Diagnosis: Chronic migraine Procedure code: 94726 History: Baseline number of headaches per month:20 [...] Ordered 200 units for next visit. Cindy DAS PROCEDURE/MINOR SURGIC AL ORDERABLES Final Result from Last 3 Months Insurance [facility] [place] [address] [facility] Care Teams Bull Gang Worker Relationship Specialty Start Date End Date Eve Harris, RAW STOCK MACHINE FEEDER-AERIAL HURRICANE HUNTER [address] [facility] [address] [place] [address] PCP - General Nurse Practitioner Family 10/21/22 José Luis Mohan MD Electrophysiology 04/16/14
--- OUTSIDE RECORDS SUMMARY | 2024-12-11 19:01 | XMS_ITS | Encounter Summary ---
Author Organization [facility] Address [address] [place] [address] Care Team Providers Care Yarn Mercerizer Operator Helper Name Role Phone GuillermoquintinJoshua Lyssa DO Primary Care Provider [phone] Nancy Alexander MD Unavailable [phone] Shanice Paulina DO Primary Care Provider [phone] Eve Harris DERRICK BUILDER Primary Care Provider [phone] Encounter Details Date Type Department Care Team (Late st Contact Info) Description 05/29/2021 MyChart Message Enc [facility] Neurology Specialty Clinic [address] [address] Nancy Alexander MD 1 [place] [address] Question regarding OLIGOCLONAL BANDS SERUM Social History Tobacco Use Types Packs/Day Years Used Date Smoking Tobacco: Former Cigarettes 0.3 20 0 10/28/2000 - 10/28/2020 Smokeless Tobacco: Never Alcohol Use Standard Drinks/Week Comments Yes 0 (1 standard drink = 0.6 oz pur e alcohol) 1-2 drinks a week PHQ-2 Answer Date Recorded PHQ-2 Score - If the patient scores above 3, please move on to questions 3-9 2 06/01/2021 Comments No Sex and Gender Information Value Date Recorded Sex Assigned at Female 03/20/2024 12:00 PM ACCESS SPECIALIST Legal Sex Female 7:31 PM CDT Gender Identity Female 04/16/2021 12:45 PM ACCESS SPECIALIST Sexual Orientation Not on file COVID-19 Exposure Response Date Recorded In the last 10 days, have yo u been in contact with someone who was confirmed or suspected to have Coronavirus/COVID-19? No / Unsure 06/01/2021 9:57 AM CDT documented as of this encounter [...] Time COVID-19 Confirmed 10/28/2022 10/28/2022 12:32 AM ACCESS SPECIALIST COVID-19 Rule Out 01/19/2023 10/28/2022 01/19/2023 10:11 AM ACCESS SPECIALIST COVID-19 Rule Out 02/28/2024 02/28/2024 02/28/2024 7:08 AM ACCESS SPECIALIST Influenza - Seasonal 02/28/2024 02/28/2024 025 12:33 AM ACCESS SPECIALIST documented as of this encounter Care Teams Yarn Mercerizer Operator Helper Relationship Specialty Start Date End Date Joshua Holly DO PCP - General FAMILY PRACTICE 05/01/21 02/16/22 Paulina Prasad DO [address] [place] [address] PCP - General FAMILY PRACTICE 03/26/22 06/13/22 Eve Harris DERRICK BUILDER [address] [address] PCP - General Nurse Practitioner Family 06/14/22 Nancy Alexander MD Physician NEUROLOGY 05/21/21 06/21/22 documented as of this encounter
--- OUTSIDE RECORDS SUMMARY | 2024-12-11 19:10 | XMS_ITS | Encounter Summary ---
Author Organization [facility] Address [address] [place] [address] Care Team Providers Care Sports Physiotherapist Name Role Phone Joshua Holly DO Primary Care Provider [phone] Nancy Alexander MD Unavailable [phone] Paulina Prasad DO Primary Care Provider [phone] Eve Harris OPERATIONS INTELLIGENCE Primary Care Provider [phone] Encounter Details Date Type Department Care Team (Late st Contact Info) Description 06/23/2021 Therapy Plan [facility] [address] [place], [place] [id number] Nancy Alexander MD 1 [place] [address] Social History Tobacco Use Types Packs/Day Years Used Date Smoking Tobacco: Light Smoker Cigarettes 0.3 1 Started: 020; Last attempted to quit: 10/28/2020 Pipe Smokeless Tobacco: Never Comments:On and off for [...] Sex Assigned at Female 03/20/2024 12:00 PM PAYROLL ANALYST Legal Sex Female 7:31 PM CDT Gender Identity Female 04/16/2021 12:45 PM PAYROLL ANALYST Sexual Orientation Not on file COVID-19 Exposure Response Date Recorded In the last 10 days, have yo u been in contact with someone who was confirmed or suspected to have Coronavirus/COVID-19? No / Unsure 06/26/2021 3:06 PM CDT documented as of this encounter [...] documented as of this encounter Visit Diagnoses Diagnosis Status migrainosus- Primary Variants of migraine, not elsewhere classified, without mention of intractable migraine without mention of status migrainosus documented in this encounter Additional Health Concerns Infection Onset Date Last Indicated Resolved Time COVID-19 Confirmed 10/28/2022 10/28/2022 12:32 AM PAYROLL ANALYST COVID-19 Rule Out 01/19/2023 10/28/202201/19/2023 10:11 AM PAYROLL ANALYST COVID-19 Rule Out 02/28/2024 02/28/2024 02/28/2024 7:08 AM PAYROLL ANALYST Influenza - Seasonal 02/28/2024 02/28/2024 025 12:33 AM PAYROLL ANALYST Assessment Noted Time PHQ-9 Depression Total Score: 17 022 11:33 AM CDT documented as of this encounter Care Teams Sports Physiotherapist Relationship Specialty Start Date End Date Joshua Holly DO PCP - General FAMILY PRACTICE 05/01/21 02/16/22 Paulina Prasad DO [address] [place] [address] PCP - General FAMILY PRACTICE 03/26/22 06/13/22 Eve Harris, OPERATIONS INTELLIGENCE [address] [address] PCP - General Nurse Practitioner Family 06/14/22 Nancy Alexander MD Physician NEUROLOGY 05/21/21 06/21/22 documented as of this encounter
--- OUTSIDE RECORDS SUMMARY | 2024-12-11 19:10 | XMS_ITS | Encounter Summary ---
Author Organization [facility] Address [address] [place] [address] Care Team Providers Care Veneer Redrier Name Role Phone Avni Joshua Lyssa DO Primary Care Provider [phone] Nancy Alexander MD Unavailable [phone] Paulina Prasad DO Primary Care Provider [phone] Eve Harris DRAGLINE MECHANIC Primary Care Provider [phone] Encounter Details Date Type Department Care Team (Late st Contact Info) Description 06/08/[address] [facility] Neurology Specialty Clinic [address] [address] Nancy Alexander MD 1 [place] [address] Question regarding IR LUMB PUNCTURE DIAGNOSTIC Social History Tobacco Use Types Packs/Day Years [...] Sex Assigned at Female 03/20/2024 12:00 PM RUG SCRATCHER Legal Sex Female 7:31 PM CDT Gender Identity Female 04/16/2021 12:45 PM RUG SCRATCHER Sexual Orientation Not on file COVID-19 Exposure Response Date Recorded In the last 10 days, have yo u been in contact with someone who was confirmed or suspected to have Coronavirus/COVID-19? No / Unsure 06/09/2021 10:11 AM CDT documented as of this encounter [...] Time COVID-19 Confirmed 10/28/2022 10/28/2022 12:32 AM RUG SCRATCHER COVID-19 Rule Out 01/19/2023 10/28/2022 01/19/2023 10:11 AM RUG SCRATCHER COVID-19 Rule Out 02/28/2024 02/28/2024 02/28/2024 7:08 AM RUG SCRATCHER Influenza - Seasonal 02/28/2024 02/28/2024 025 12:33 AM RUG SCRATCHER Assessment Noted Time PHQ-9 Depression Total Score: 17 022 11:33 AM CDT documented as of this encounter Care Teams Veneer Redrier Relationship Specialty Start Date End Date Joshua Holly DO PCP - General FAMILY PRACTICE 05/01/21 02/16/22 Paulina Prasad DO [address] [place] [address] PCP - General FAMILY PRACTICE 03/26/22 06/13/22 Eve Harris, DRAGLINE MECHANIC [address] [address] PCP - General Nurse Practitioner Family 06/14/22 Nancy Alexander MD Physician NEUROLOGY 05/21/21 06/21/22 documented as of this encounter
--- OUTSIDE RECORDS SUMMARY | 2024-12-11 19:10 | XMS_ITS | Encounter Summary ---
Author Organization [facility] Address [address] [place] [address] Care Team Providers Care Rice Dryer Mechanic Name Role Phone José Luis Mohan MD Unavailable [phone] Eve Harris DIRECTOR OF RESEARCH CENTER-BAR TACKER SEWING MACHINE Primary Care Provider Reason for Visit * Reason Onset Date Comments Results 10/11/2022 Encounter Details Date Type Department Care Team (Late st Contact Info) Description 10/11/2022 Telephone [facility] - Centralized Scheduling [address] [place] [address] Marylu Mccauley MD [address] [facility] [address] [place] [address] Results Social History Tobacco Use Types Packs/Day Years Used Date Smoking Tobacco: Every Day Cigarettes Last attempted to quit: 12/19/2010 Alcohol Use Standard Drinks/Week Comments No 0 (1 standard drink = 0.6 oz pur e alcohol) Comments No Sex and Gender Information Value Date Recorded Sex Assigned at Female 01/05/2023 1:24 PM STORM WINDOW INSTALLER Legal Sex Female 9:24 AM CDT Gender Identity Female 01/05/2023 1:24 PM STORM WINDOW INSTALLER Sexual Orientation Straight 01/05/2023 1: 24 PM STORM WINDOW INSTALLER documented as of this encounter Miscellaneous Notes [...] Procedure visit [facility] - Neurology [address] [place] [address], [place] [phone] Cindy Negron, DIRECTOR OF RESEARCH CENTER-BAR TACKER SEWING MACHINE [address] [place] [address] [place] [address] documented as of this encounter Visit Diagnoses Not on filedocumented in this encounter Care Teams Rice Dryer Mechanic Relationship Specialty Start Date End Date Eve Harris, DIRECTOR OF RESEARCH CENTER-BAR TACKER SEWING MACHINE [address] [facility] Suite [facility] [place] [address] PCP - General Nurse Practitioner Family 10/21/22 José Luis Mohan MD Electrophysiology 04/16/14 documented as of this encounter
--- OUTSIDE RECORDS SUMMARY | 2024-12-11 19:10 | XMS_ITS | Encounter Summary ---
Author Organization [facility] Address [address] [place] [address] Care Team Providers Care Automotive Services Manager Name Role Phone Joshua Holly DO Primary Care Provider [phone] Nancy Alexander MD Unavailable [phone] Paulina Prasad DO Primary Care Provider [phone] Eve Harris NP Primary Care Provider [phone] Encounter Details Date Type Department Care Team (Latest Contact Info) Description 07/14/2021 CinaMaker Message Enc [facility] Medical Group Multispecialty Care - [facility] [address] [facility], [address] [place] [address] Rosy, [facility] Provider Infusion Med denial Social History Tobacco Use Types Packs/Day Years [...] Sex Assigned at Female 03/20/2024 12:00 PM WEB MACHINE TENDER Legal Sex Female 7:31 PM CDT Gender Identity Female 04/16/2021 12:45 PM WEB MACHINE TENDER Sexual Orientation Not on file COVID-19 Exposure Response Date Recorded In the last 10 days, have saba u been in contact with someone who was confirmed or suspected to have Coronavirus/COVID-19? No / Unsure 07/17/2021 3:23 PM CDT documented as of this encounter [...] in ADLs upon discharge from hospital General No Le Ag RN documented as of this encounter Visit Diagnoses Not on filedocumented in this encounter Additional Health Concerns Infection Onset Date Last Indicated Resolved Time COVID-19 Confirmed 10/28/2022 10/28/2022 12:32 AM WEB MACHINE TENDER COVID-19 Rule Out 01/19/2023 10/28/2022 01/19/2023 10:11 AM WEB MACHINE TENDER COVID-19 Rule Out 02/28/2024 02/28/2024 02/28/2024 7:08 AM WEB MACHINE TENDER Influenza - Seasonal 02/28/2024 02/28/2024 025 12:33 AM WEB MACHINE TENDER Assessment Noted Time PHQ-9 Depression Total Score: 17 022 11:33 AM CDT documented as of this encounter Care Teams Automotive Services Manager Relationship Specialty Start Date End Date Joshua Holly DO PCP - General FAMILY PRACTICE 05/01/21 02/16/22 Paulina Prasad DO [facility] [place] [address] PCP - General FAMILY PRACTICE 03/26/22 06/13/22 Eve Harris, FARMWORKER BROODER FARM [address] [address] PCP - General Nurse Practitioner Family 06/14/22 Nancy Alexander MD Physician NEUROLOGY 05/21/21 06/21/22 documented as of this encounter
--- OUTSIDE RECORDS SUMMARY | 2024-12-11 19:10 | XMS_ITS | Encounter Summary ---
Author Organization [facility] Address [address] [place] [address] Care Team Providers Care Liability Claims Adjuster Name Role Phone José Luis Mohan MD Unavailable [phone] Eve Hraris APRN-SLOT FLOORPERSON Primary Care Provider Encounter Details Date Type Department Care Team (Late st Contact Info) Description 01/31/2023 Telephone [facility] - Dermatology [address] [place] [address], [facility] [place] [address] Marylu Mccauley MD [address] [place] [address] [place] [address] Social History Tobacco Use Types Packs/Day Years Used Date Smoking Tobacco: Former Cigarettes Q uit: 12/19/2010 Alcohol Use Standard Drinks/Week Comments No 0 (1 standard drink = 0.6 oz pur e alcohol) PHQ-2 Answer Date Recorded Patient Health Questionnaire-2 Score 2 12/06/2022 Comments No Sex and Gender Information Value Date Recorded Sex Assigned at Female 01/05/2023 1:24 PM RACQUET MAKER Legal Sex Female 9:24 AM CDT Gender Identity Female 01/05/2023 1:24 PM RACQUET MAKER Sexual Orientation Straight 01/05/2023 1: 24 PM RACQUET MAKER documented as of this encounter Miscellaneous Notes * Telephone Encounter - Madelyn Severino - 01/31/2023 8:58 AM CST Patient called stating she spoke to Dr Mccauley and was told she would be added to the schedule forthis afternoon. Patient is calling to confirm what time she should come in. UET MAKER documented in this encounter Plan of Treatment Upcoming Encounters Date Type Department Care Team (Late st Contact Info) Description 12/20/2024 10:30 AM CDT Procedure visit [facility] - Neurology [address] [place] [address], [place] [address] Cindy Negron, COMMUNICATIONS EQUIPMENT INSTALLER-SLOT FLOORPERSON [address] [place] [address] [place] [address] documented as of this encounter Visit Diagnoses Not on filedocumented in this encounter Care Teams Liability Claims Adjuster Relationship Specialty Start Date End Date Eve Harris, COMMUNICATIONS EQUIPMENT INSTALLER-SLOT FLOORPERSON [address] [facility] [address] [place] [address] PCP - General Nurse Practitioner Family 10/21/22 José Luis Mohan MD Electrophysiology 04/16/14 documented as of this encounter
--- OUTSIDE RECORDS SUMMARY | 2024-12-11 19:10 | XMS_ITS | Encounter Summary ---
Author Organization [facility] Address [address] [place] [address] Care Team Providers Care Business Intelligence Manager Name Role Phone Jerel Gutierrez Farida DO Primary Care Provider [phone] Joshua Holly DO Primary Care Provider [phone] Nancy Alexander MD Unavailable [phone] Paulina Prasad DO Primary Care Provider [phone] Eve Harris CASINO BANKER Primary Care Provider [phone] Encounter Details Date Type Department Care Team (Late st Contact Info) Description 05/02/2020 [employer] Message Enc [facility] Gastroenterology Specialty Clinic [address] [address] Emiliano Azar MD [address] [place] [address] Test Results Social History Tobacco Use Types Packs/Day Years Used Date Smoking Tobacco: Every Day Cigarettes 0.3 20 Smokeless Tobacco: Never Comments:5-7 cigarettes a da y Alcohol Use Standard Drinks/Week Comments Yes 0 (1 standard drink = 0.6 oz pur e alcohol) 1-2 drinks a week Comments No Sex and Gender Information Value Date Recorded Sex Assigned at Female 03/20/2024 12:00 PM PAY PER CLICK STRATEGIST Legal Sex Female 7:31 PM CDT Gender Identity Female 04/16/2021 12:45 PM PAY PER CLICK STRATEGIST Sexual Orientation Not on file COVID-19 Exposure Response Date Recorded In the last month, have you been in contact with someone who was confirmed or suspected to have Coronavirus / COVID-19? No / Unsure 05/05/2020 5:12 PM PAY PER CLICK STRATEGIST documented as of this encounter Plan of Treatment Not on file documented as of this encounter Visit Diagnoses Not on filedocumented in this encounter Additional Health Concerns Infection Onset Date Last Indicated Resolved Time COVID-19 Rule Out 05/06/2020 05/06/2020 05/07/2020 11:41 PM PAY PER CLICK STRATEGIST COVID-19 Rule Out 06/13/2020 06/13/2020 06/14/2020 12:32 PM CDT COVID-19 Rule Out 06/17/2020 06/17/2020 06/18/2020 6:46 AM CDT COVID-19 Rule Out 02/27/2021 02/27/2021 02/27/2021 1:08 PM PAY PER CLICK STRATEGIST COVID-19 Confirmed 02/27/2021 02/27/2021 12:32 AM PAY PER CLICK STRATEGIST COVID-19 Confirmed 10/28/2022 10/28/2022 12:32 AM PAY PER CLICK STRATEGIST COVID-19 Rule Out 01/19/2023 10/28/2022 01/19/2023 10:11 AM PAY PER CLICK STRATEGIST COVID-19 Rule Out 02/28/2024 02/28/2024 02/28/2024 7:08 AM PAY PER CLICK STRATEGIST Influenza - Seasonal 02/28/2024 02/28/2024 025 12:33 AM PAY PER CLICK STRATEGIST documented as of this encounter Care Teams Business Intelligence Manager Relationship Specialty Start Date End Date Jerel Gutierrez DO [address] [address] PCP - General INTERNAL MEDICINE 02/15/19 04/30/21 Joshua Holly DO [address] [address] PCP - General FAMILY PRACTICE 05/01/21 02/16/22 Paulina Prasad DO [address] [place] [address] PCP - General FAMILY PRACTICE 03/26/22 06/13/22 [place] [address] [address] PCP - General Nurse Practitioner Family 06/14/22 Nancy Alexander MD [address] [address] Physician NEUROLOGY 05/21/21 06/21/22 documented as of this encounter
--- OUTSIDE RECORDS SUMMARY | 2024-12-11 19:10 | XMS_ITS | Encounter Summary ---
Author Organization [facility] Address Formerly [facility] [place] [address] Care Team Providers Care Devops Consultant Name Role Phone Jerel Gutierrez Farida DO Primary Care Provider [phone] Joshua Holly DO Primary Care Provider [phone] Nancy Alexander MD Unavailable [phone] Paulina Prasad DO Primary Care Provider [phone] Eve Harris TRAY DRIER Primary Care Provider [phone] Encounter Details Date Type Department Care Team (Late st Contact Info) Description 05/01/2020 Prep for Procedure [facility] Day [facility] [address] [place] [address] Emiliano Azar MD 3 [facility] [address] [place] [address] Social History Tobacco Use Types Packs/Day Years Used Date Smoking Tobacco: Every Day Cigarettes 0.3 20 Smokeless Tobacco: Never Comments:5-7 cigarettes a da y Alcohol Use Standard Drinks/Week Comments Yes 0 (1 standard drink = 0.6 oz pur e alcohol) 1-2 drinks a week Comments No Sex and Gender Information Value Date Recorded Sex Assigned at Female 03/20/2024 12:00 PM IMMIGRATION INSPECTOR Legal Sex Female 7:31 PM CDT Gender Identity Female 04/16/2021 12:45 PM IMMIGRATION INSPECTOR Sexual Orientation Not on file COVID-19 Exposure Response Date Recorded In the last month, have you been in contact with someone who was confirmed or suspected to have Coronavirus / COVID-19? No / Unsure 05/01/2020 5:17 PM IMMIGRATION INSPECTOR documented as of this encounter Plan of Treatment Not on file documented as of this encounter Results * PRE-SURGICAL/PRE-PROCEDURE CORONAVIRUS (COVID 19) (05/06/2020 12:00 PM IMMIGRATION INSPECTOR) CORONAVIRUS SARS COV 2 PCR (RESP) NOT DETECTED NOT DETECTED 05/07/2020 11:40 PM IMMIGRATION INSPECTOR [facility] Comment: A Not Detected (negative) test result for this test means that SARS- CoV-2 RNA was not present in the specimen [...] a final diagnosis and patient management decisions. Please review the Fact Sheets and FDA authorized labeling available for health care providers and patients using the following websites: https://www.[employer].Capeco/home/Covid-19/HCP/NAAT/fact-sheet2 https://www.[employer].Capeco/home/Covid-19/Patients/NAAT/ fact-sheet2 This test has been authorized by the FDA under an Emergency Use Authorization (EUA) for use by authorized laboratories. Due to the current public health emergency, [facility] is receiving a high volume of samples [...] about COVID-19 can be found at the [facility] website: www.[employer].Capeco/Covid19. Test performed at [facility] [address] [facility] [place] [address] Director: ADEBAYO SHEPPARD DO,MPH FIRST TEST UNKNOWN 05/06/2020 12:18 PM IMMIGRATION INSPECTOR [facility] EMPLOYED IN HEALTHCARE YES 05/06/2020 12:18 PM IMMIGRATION INSPECTOR [facility] SYMPTOMATIC DEFINED BY CDC NO 05/06/2020 12:18 PM IMMIGRATION INSPECTOR [facility] DATE OF SYMPTOM ONSET NO 05/06/2020 12:31 PM IMMIGRATION INSPECTOR [facility] HOSPITALIZATION STATUS NO 05/06/2020 12:18 PM IMMIGRATION INSPECTOR [facility] PATIENT IN ICU NO 05/06/2020 12:18 PM IMMIGRATION INSPECTOR [facility] RESIDENT OF [facility] NO 05/06/2020 12:18 PM IMMIGRATION INSPECTOR [facility] UNKNOWN 05/06/2020 12:18 PM IMMIGRATION INSPECTOR [facility] PATIENT'S RACE WHITE OR 05/06/2020 12:18 PM IMMIGRATION INSPECTOR [facility] ETHNICITY NONHISPANIC 05/06/2020 12:18 PM IMMIGRATION INSPECTOR [facility] SOURCE (QST) NASOPHARYNGEAL SWAB 05/06/2020 12:18 PM IMMIGRATION INSPECTOR [facility] NASOPHARYNGEAL SWAB / Unknown 05/06/2020 12:00 PM IMMIGRATION INSPECTOR us Emiliano Aazr MD MICROBIOLOGY - GENERAL ORDERABLE S Final Result [facility] [address] [place] [address], [place] [phone] [facility] [address] [address] [facility] [place] [address], documented in this encounter Visit Diagnoses Diagnosis Preop testing- Primary Preoperative examination, unspecified documented in this encounter Additional Health Concerns Infection Onset Date Last Indicated Resolved Time COVID-19 Rule Out 05/06/2020 05/06/2020 05/07/2020 11:41 PM IMMIGRATION INSPECTOR COVID-19 Rule Out 06/13/2020 06/13/2020 06/14/2020 12:32 PM CDT COVID-19 Rule Out 06/17/2020 06/17/2020 06/18/2020 6:46 AM CDT COVID-19 Rule Out 02/27/2021 02/27/2021 02/27/2021 1:08 PM IMMIGRATION INSPECTOR COVID-19 Confirmed 02/27/2021 02/27/2021 12:32 AM IMMIGRATION INSPECTOR COVID-19 Confirmed 10/28/2022 10/28/2022 12:32 AM IMMIGRATION INSPECTOR COVID-19 Rule Out 01/19/2023 10/28/2022 01/19/2023 10:11 AM IMMIGRATION INSPECTOR COVID-19 Rule Out 02/28/2024 02/28/2024 02/28/2024 7:08 AM IMMIGRATION INSPECTOR Influenza - Seasonal 02/28/2024 02/28/2024 025 12:33 AM IMMIGRATION INSPECTOR documented as of this encounter Care Teams Devops Consultant Relationship Specialty Start Date End Date Jerel Gutierrez DO [address] [facility] [address] [place] [address] PCP - General INTERNAL MEDICINE 02/15/19 04/30/21 Joshua Holly DO [address] [facility] [address] [place] [address] PCP - General FAMILY PRACTICE 05/01/21 02/16/22 Paulina Prasad DO [facility]2 [place] [address] PCP - General FAMILY PRACTICE 03/26/22 06/13/22 Eve Harris, ALLA [address] [address] PCP - General Nurse Practitioner Family 06/14/22 Nancy Alexander MD [address] [place] [address] Physician NEUROLOGY 05/21/21 06/21/22 documented as of this encounter
--- OUTSIDE RECORDS SUMMARY | 2024-12-11 19:10 | XMS_ITS | Encounter Summary ---
Author Organization [facility] Address [address] [place] [address] Care Team Providers Care Space And Missile Operations Name Role Phone Avni Joshua Lyssa DO Primary Care Provider [phone] Nancy Alexander MD Unavailable [phone] Paulina Prasad DO Primary Care Provider [phone] Eve Harris FIELD CHECKER Primary Care Provider [phone] Encounter Details Date Type Department Care Team (Late st Contact Info) Description 06/01/2021 MyCQuiklyt Message Enc [facility] Medical Group Neurology Specialty Clinic [address] [address] Nancy Alexander MD 1 [place] [address] Migraine medication Social History Tobacco Use Types Packs/Day Years [...] Sex Assigned at Female 03/20/2024 12:00 PM DONOR SERVICES MANAGER Legal Sex Female 7:31 PM CDT Gender Identity Female 04/16/2021 12:45 PM DONOR SERVICES MANAGER Sexual Orientation Not on file COVID-19 Exposure Response Date Recorded In the last 10 days, have saba vann been in contact with someone who was [...] documented in this encounter Progress Notes * Nancy Alexander MD - 06/02/2021 2:47 PM CDT Ok, infusion forms sent to you. Thanks. documented in this encounter Plan of Treatment Not on file documented as of this encounter Goals Goal Patient Goal Type Associated Problems Recent Progress Patient-Stated? Author Patient will return to prior living situation and remain independent in ADLs upon discharge from hospital General No Ag, Le K, RN documented as of this encounter Visit Diagnoses Not on filedocumented in this encounter Additional Health Concerns Infection Onset Date Last Indicated Resolved Time COVID-19 Confirmed 10/28/2022 10/28/2022 12:32 AM DONOR SERVICES MANAGER COVID-19 Rule Out 01/19/2023 10/28/2022 01/19/2023 10:11 AM DONOR SERVICES MANAGER COVID-19 Rule Out 02/28/2024 02/28/2024 02/28/2024 7:08 AM DONOR SERVICES MANAGER Influenza - Seasonal 02/28/2024 02/28/2024 025 12:33 AM DONOR SERVICES MANAGER Assessment Noted Time PHQ-9 Depression Total Score: 17 022 11:33 AM CDT documented as of this encounter Care Teams Space And Missile Operations Relationship Specialty Start Date End Date Joshua Holly DO PCP - General FAMILY PRACTICE 05/01/21 02/16/22 Paulina Prasad DO [facility]2 [place] [address] PCP - General FAMILY PRACTICE 03/26/22 06/13/22 Eve Harris, FIELD CHECKER [address] [address] PCP - General Nurse Practitioner Family 06/14/22 Nancy Alexander MD Physician NEUROLOGY 05/21/21 06/21/22 documented as of this encounter
--- OUTSIDE RECORDS SUMMARY | 2024-12-11 19:10 | XMS_ITS | Encounter Summary ---
Author Organization [facility] Address [address] [place] [address] Care Team Providers Care Mother Baby Rn Name Role Phone Avni Joshua Lyssa DO Primary Care Provider [phone] Nancy Alexander MD Unavailable [phone] Paulina Prasad DO Primary Care Provider [phone] Eve Harris STRUCTURAL METAL WORKER Primary Care Provider [phone] Encounter Details Date Type Department Care Team (Latest Contact Info) Description 06/08/2021 Y[employer]et Message Enc [facility] Medical Group Neurology Specialty Clinic [address] [address] Nancy Alexander MD 1 [place] [address] Question regarding MISCELLANEOUS LAB TEST Social History Tobacco Use Types Packs/Day Years [...] Sex Assigned at Female 03/20/2024 12:00 PM SENIOR ENTERPRISE ARCHITECT Legal Sex Female 7:31 PM CDT Gender Identity Female 04/16/2021 12:45 PM SENIOR ENTERPRISE ARCHITECT Sexual Orientation Not on file COVID-19 Exposure [...] Time COVID-19 Confirmed 10/28/2022 10/28/2022 12:32 AM SENIOR ENTERPRISE ARCHITECT COVID-19 Rule Out 01/19/2023 10/28/2022 01/19/2023 10:11 AM SENIOR ENTERPRISE ARCHITECT COVID-19 Rule Out 02/28/2024 02/28/2024 02/28/2024 7:08 AM SENIOR ENTERPRISE ARCHITECT Influenza - Seasonal 02/28/2024 02/28/2024 025 12:33 AM SENIOR ENTERPRISE ARCHITECT Assessment Noted Time PHQ-9 Depression Total Score: 17 022 11:33 AM CDT documented as of this encounter Care Teams Mother Baby Rn Relationship Specialty Start Date End Date Joshua Holly DO PCP - General FAMILY PRACTICE 05/01/21 02/16/22 Paulina Prasad DO [address] [place] [address] PCP - General FAMILY PRACTICE 03/26/22 06/13/22 Eve Harris, STRUCTURAL METAL WORKER [address] [address] PCP - General Nurse Practitioner Family 06/14/22 Nancy Alexander MD Physician NEUROLOGY 05/21/21 06/21/22 documented as of this encounter
--- OUTSIDE RECORDS SUMMARY | 2024-12-11 19:10 | XMS_ITS | Encounter Summary ---
Author Organization [facility] Address [facility] [place] [address] Care Team Providers Care Doctor Osteopathic Name Role Phone Cyril Uribe MD Primary Care Provider [phone] Jerel Gutierrez DO Primary Care Provider [phone] Joshua Holly DO Primary Care Provider [phone] Nancy Alexander MD Unavailable [phone] Paulina Prasad DO Primary Care Provider [phone] Eve Harris COTTON FARMER Primary Care Provider [phone] Encounter Details Date Type Department Care Team (Late st Contact Info) Description 05/22/2018 RX Orders Only [facility] Medical Group Multispecialty Care - [address], [address] [place] [address] Yulissa Kohler NP 3 [facility] [address] [place], [place] [id number] Social History Tobacco Use Types Packs/Day Years Used Date Smoking Tobacco: Former Cigarettes 0.5 20 0 06/1997 - 06/2017 Smokeless Tobacco: Never Alcohol Use Standard Drinks/Week Comments Yes 0 (1 standard drink = 0.6 oz pur e alcohol) 1-2 drinks a week Comments Unknown Sex and Gender Information Value Date Recorded Sex Assigned at Female 03/20/2024 12:00 PM DISTANCE EDUCATION COORDINATOR Legal Sex Female 7:31 PM CDT Gender Identity Female 04/16/2021 12:45 PM DISTANCE EDUCATION COORDINATOR Sexual Orientation Not on file documented as of this encounter Plan of Treatment Not on file documented as of this encounter Visit Diagnoses Not on filedocumented in this encounter Additional Health Concerns Infection Onset Date Last Indicated Resolved Time COVID-19 Rule Out 05/06/2020 05/06/2020 05/07/2020 11:41 PM DISTANCE EDUCATION COORDINATOR COVID-19 Rule Out 06/13/2020 06/13/2020 06/14/2020 12:32 PM CDT COVID-19 Rule Out 06/17/2020 06/17/2020 06/18/2020 6:46 AM CDT COVID-19 Rule Out 02/27/2021 02/27/2021 02/27/2021 1:08 PM DISTANCE EDUCATION COORDINATOR COVID-19 Confirmed 02/27/2021 02/27/2021 12:32 AM DISTANCE EDUCATION COORDINATOR COVID-19 Confirmed 10/28/2022 10/28/2022 12:32 AM DISTANCE EDUCATION COORDINATOR COVID-19 Rule Out 01/19/2023 10/28/2022 01/19/2023 10:11 AM DISTANCE EDUCATION COORDINATOR COVID-19 Rule Out 02/28/2024 02/28/2024 02/28/2024 7:08 AM DISTANCE EDUCATION COORDINATOR Influenza - Seasonal 02/28/2024 02/28/2024 025 12:33 AM DISTANCE EDUCATION COORDINATOR documented as of this encounter Care Teams Doctor Osteopathic Relationship Specialty Start Date End Date Cyril Uribe MD PCP - General INTERNAL MEDICINE 03/21/18 02/14/19 Jerel Gutierrez DO [address] [place] [address] [facility] [address] [place] [address] PCP - General INTERNAL MEDICINE 02/15/19 04/30/21 Joshua Holly DO [address] [place] [address] [facility] [address] [place] [address] PCP - General FAMILY PRACTICE 05/01/21 02/16/22 Paulina Prasad DO [facility]2 [place] [address] PCP - General FAMILY PRACTICE 03/26/22 06/13/22 Eve Harris, COTTON FARMER [address] [address] PCP - General Nurse Practitioner Family 06/14/22 Nancy Alexander MD [address] [place] [id number] Physician NEUROLOGY 05/21/21 06/21/22 documented as of this encounter
--- OUTSIDE RECORDS SUMMARY | 2024-12-11 19:11 | XMS_ITS | Encounter Summary ---
Author Organization [facility] Address [address] [address] [place] [address] Care Team Providers Care Bow Maker Production Name Role Phone José Luis Mohan MD Unavailable [phone] Eve Harris APRN-DISTRIBUTION DISTRICT SUPERVISOR Primary Care Provider Reason for Visit * Reason Onset Date Comments Appointment 01/25/2023 Encounter Details Date Type Department Care Team (Late st Contact Info) Description 01/25/2023 Telephone [facility] - Dermatology [address] [place] [address], [place] [address] Marylu Mccauley MD [address] [place] [address] [place] [address] Appointment Social History Tobacco Use [...] Sex Assigned at Female 01/05/2023 1:24 PM COAT HANGER SHAPER MACHINE OPERATOR Legal Sex Female 9:24 AM CDT Gender Identity Female 01/05/2023 1:24 PM COAT HANGER SHAPER MACHINE OPERATOR Sexual Orientation Straight 01/05/2023 1: 24 PM COAT HANGER SHAPER MACHINE OPERATOR documented as of this encounter Miscellaneous Notes * Telephone Encounter - Tracy Hassan 01/28/2023 1:30 PM CST Pt is returning missed call. She is wanting to take appointment on Tuesday HANGER SHAPER MACHINE OPERATOR * Telephone Encounter - Madelyn Severino - 01/25/2023 12:08 PM CST Patient calling to get scheduled in concerns to a rash she discussed with Dr Mccauley. Next available not until May. Please advise HANGER SHAPER MACHINE OPERATOR documented in this encounter Plan of Treatment Upcoming Encounters Date Type Department Care Team (Late st Contact Info) Description 12/20/2024 10:30 AM CDT Procedure visit [facility] - Neurology [address] [place] [address], [place] [address] Cindy Negron, CDL COMPANY DRIVER-DISTRIBUTION DISTRICT SUPERVISOR [address] [place] [address] [place] [address] documented as of this encounter Visit Diagnoses Not on filedocumented in this encounter Care Teams Bow Maker Production Relationship Specialty Start Date End Date Eve Harris, CDL COMPANY DRIVER-DISTRIBUTION DISTRICT SUPERVISOR [address] [facility] [address] [place] [address] PCP - General Nurse Practitioner Family 10/21/22 José Luis Mohan MD Electrophysiology 04/16/14 documented as of this encounter
== END 2024-12-11 19:16 | disposition home or self-care (01) ==
PROVIDERS: Emergency Provider Nurse Practitioner; PCP Nurse Practitioner Family
DX: K08.89 Other specified disorders of teeth and supporting structures (principal); Z87.891 Personal history of nicotine dependence; F12.90 Cannabis use, unspecified, uncomplicated; J45.909 Unspecified asthma, uncomplicated; M35.9 Systemic involvement of connective tissue, unspecified; Z86.011 Personal history of benign neoplasm of the brain
CPT/HCPCS: 99213; G0463